=== PATIENT | male | born 1945 | race Caucasian/White ===

== ENCOUNTER 2017-05-06 07:54 | Inpatient (IN) | payer MEDICARE, OTHER ==
[2017-05-06] VITALS (19 sets, daily range): BP systolic 85–155; BP diastolic 56–98; PULSE 68–98; RESP 14–16; TEMP 97.8–99; O2SAT 70–100
[~2017-05-06] VITALS: Ht 182.9 cm; Wt 104.5 kg
[~2017-05-06 07:54] MED LIST: AMLO5 PO; ATOR20TA15 PO; CHOL5000 PO; FURO20TA PO; GABA100C4 PO; GETGO ROLLING W1 MI1; KLOR10TA PO; LIPI40TA PO; LISI-515 PO; METO25TA3 PO; NIAC100T2 PO; PRAD150C PO; THERTAB15 PO; [UNRECOGNIZED DRUG - OTHER]; shower chair
[2017-05-06] MEDS ORDERED: SODIUM CHLORIDE 0.9% FLUSH 10 ML FLUSH IVF PRN (08:15)
[2017-05-06] MEDS ORDERED: methylPREDNISolone SOD SUCC 125 MG/2 ML VIAL IV PUSH ONE (08:15)
[2017-05-06] MEDS: RESP: ALBUTEROL 2.5 MG/IPRATROPIUM 0.5 MG NEB (SCH) INH ×4 (08:15→20:26)
--- NOTE | 2017-05-06 08:15 | PD ---
HPI Chief Complaint: respiratory Time Seen by Provider: 07:59 Travel History International Travel<30 days: No Contact w/Intl Traveler<30days: No Traveled to known affect area: No History of Present Illness HPI 71-year-old male was brought in by EMS this morning for a short breath and chest pain. Patient states that the symptoms started this morning. Patient has history of COPD and atrial fibrillation. Patient states that he has substernal chest pain this morning which lasted a short period of time and resolved completely. Patient denies any chest pain now. Patient has history of CVA with left-sided weakness. Patient denies any fever chills. In reviewing medical records, patient has history COPD, atrial fibrillation, depression, hypertension, status post CVA, GI bleed. PFSH Past Medical History Arthritis: No Asthma: Yes (as a child) Autoimmune Disease: No Anxiety: No Depression: No Heart Rhythm Problems: Yes Cancer: No Cardiovascular Problems: No High Cholesterol: Yes Chemotherapy: No Chest Pain: No Congestive Heart Failure: Yes COPD: No Cerebrovascular Accident: Yes Diabetes: No Endocrine: No GERD: No Genitourinary: No Hiatal Hernia: No Immune Disorder: No Kidney Stones: Yes (Once) Musculoskeletal: Yes (Hx of Bilateral Shoulder Pain) Neurologic: No Psychiatric: No Reproductive: No Respiratory: Yes Migraines: No Radiation Therapy: No Renal Failure: No Seizures: No Sickle Cell Disease: No Sleep Apnea: Yes (Obstructive) Thyroid Disease: No Ulcer: No Past Surgical History Abdominal Surgery: No AICD: No Arteriovenous Shunt: No Cardiac Surgery: No Ear Surgery: No Endocrine Surgery: No Eye Surgery: No Genitourinary Surgery: No Gynecologic Surgery: No Insulin Pump: No Joint Replacement: No Oral Surgery: Yes (Tonsilectomy (18yrs old)) Pacemaker: No Thoracic Surgery: No Social History Tobacco Use: No Substance Use: No Allergies-Medications (Allergen,Severity, Reaction): Coded Allergies: hornet venom (Unverified Allergy, Severe, Swelling, 12/10/16) Reported Meds & Prescriptions Reported Meds & Active Scripts Active Klor-Con 10 (Potassium Chloride) 10 Meq Tab 10 Meq PO DAILY 30 Days Niacin 100 Mg Tab 100 Mg PO HS 30 Days Thera/Beta-Carotene (Multiple Vitamin) 1 Tab Tab 1 Tab PO DAILY 30 Days Metoprolol Tartrate 25 Mg Tab 12.5 Mg PO DAILY 30 Days Lisinopril 20 Mg Tab 20 Mg PO BID 30 Days Gabapentin 100 Mg Cap 100 Mg PO BID 30 Days Furosemide 20 Mg Tab 20 Mg PO DAILY 30 Days Pradaxa (Dabigatran) 150 Mg Cap 150 Mg PO BID 30 Days Vitamin D3 (Cholecalciferol) 5,000 Unit Cap 5,000 Units PO DAILY 30 Days Norvasc (Amlodipine Besylate) 5 Mg Tab 5 Mg PO DAILY 30 Days Atorvastatin (Atorvastatin Calcium) 20 Mg Tab 20 Mg PO HS Pradaxa (Dabigatran) 150 Mg Cap 150 Mg PO BID [shower chair] Ea [transport chair] Ea Walker Rolling/GetGo (Device) 1 Mis Mis 1 Ea .ROUTE DIRECTED Reported Lipitor (Atorvastatin Calcium) 40 Mg Tab 40 Mg PO HS Review of Systems General / Constitutional: No: Fever Eyes: No: Visual changes HENT: No: Headaches Cardiovascular: Positive: Chest Pain or Discomfort Respiratory: Positive: Shortness of Breath Gastrointestinal: No: Abdominal Pain Genitourinary: No: Dysuria Musculoskeletal: No: Pain Skin: No Rash Neurologic: No: Weakness Psychiatric: No: Depression Endocrine: No: Polydipsia Hematologic/Lymphatic: No: Easy Bruising Physical Exam Narrative GENERAL: Well-nourished, well-developed patient. SKIN: Focused skin assessment warm/dry. HEAD: Normocephalic. EYES: No scleral icterus. No injection or drainage. NECK: Supple, trachea midline. No JVD or lymphadenopathy. CARDIOVASCULAR: Irregular irregular rate and rhythm without murmurs, gallops, or rubs. RESPIRATORY: Patient has rhonchi bilaterally. Patient has mild to moderate expiratory wheezes bilaterally. GASTROINTESTINAL: Abdomen soft, non-tender, nondistended. MUSCULOSKELETAL: No cyanosis, or edema. BACK: Nontender without obvious deformity. No CVA tenderness. Neurologic exam: Patient's awake and alert. Left sided weakness from previous CVA. Data Data Last Documented VS Vital Signs Date Time Temp Pulse Resp B/P (MAP) Pulse Ox O2 Delivery O2 Flow Rate FiO2 05/06/17 11:00 68 16 121/70 (87) 100 Ventilator 100 05/06/17 08:11 97.8 4.00 Orders Orders Electrocardiogram (05/06/17 08:09) Complete Blood Count With Diff (05/06/17 08:09) Comprehensive Metabolic Panel (05/06/17 08:09) Creatine Kinase (Cpk) (05/06/17 08:09) Troponin I (05/06/17 08:09) B-Type Natriuretic Peptide (05/06/17 08:09) Prothrombin Time / Inr (Pt) (05/06/17 08:09) Act Partial Throm Time (Ptt) (05/06/17 08:09) Arterial Blood Gas (Abg) (05/06/17 08:09) Blood Culture (05/06/17 08:09) Urinalysis - C+S If Indicated (05/06/17 08:09) Thyroid Stimulating Hormone (05/06/17 08:09) Influenzae A/B Antigen (05/06/17 08:09) Chest, Single Ap (05/06/17 08:09) Iv Access Insert/Monitor (05/06/17 08:09) Ecg Monitoring (05/06/17 08:09) Oxygen Administration (05/06/17 08:09) Oximetry (05/06/17 08:09) Sodium Chloride 0.9% Flush (Ns Flush) (05/06/17 08:15) Methylprednisolone So Succ Inj (Solumedr (05/06/17 08:15) Albuterol-Ipratropium Neb (Duoneb Neb) (05/06/17 08:15) Lactic Acid (05/06/17 08:18) Resp Bipap / Cpap Non Invas Vt (05/06/17 08:19) Cefepime Inj (Maxipime Inj) (05/06/17 09:00) Azithromycin Inj (Zithromax Inj) (05/06/17 09:00) Etomidate Inj (Amidate Inj) (05/06/17 09:15) Succinylcholine Inj (Quelicin Inj) (05/06/17 09:15) Fentanyl Drip (Fentanyl Drip) (05/06/17 09:15) Propofol 1000 Mg/100 Ml Inj (Diprivan 10 (05/06/17 09:15) Urinary Catheter Insert/Apply (05/06/17 09:11) Sagar-Gastric Tube Insert/Mon (05/06/17 09:11) Restraints Non-Violent ANGELICA.Q3H (05/06/17 09:11) Chest, Single Ap (05/06/17 09:21) Etomidate Inj (Amidate Inj) (05/06/17 09:29) Arterial Blood Gas (Abg) (05/06/17 ) Fentanyl Drip (Fentanyl Drip) (05/06/17 10:19) Sodium Chlor 0.9% 1000 Ml Inj (Ns 1000 M (05/06/17 10:45) Admit Order (Ed Use Only) (05/06/17 11:02) Vital Signs (Adult) Q1H (05/06/17 11:04) Diet Npo (05/06/17 Lunch) Activity Bed Rest (05/06/17 11:04) Notify Dr: Other (05/06/17 11:04) Labs Laboratory Tests Test 05/06/17 08:09 05/06/17 08:15 05/06/17 09:30 05/06/17 09:45 Blood Gas Puncture Site RT RADIAL RT RADIAL Blood Gas Patient Temperature 98.6 98.6 Blood Gas HCO3 42 mmol/L 36 mmol/L Blood Gas Base Excess 15.0 mmol/L 11.4 mmol/L Blood Gas Oxygen Saturation 93 % 96 % Arterial Blood pH 7.30 7.43 Arterial Blood Partial Pressure CO2 88 mmHg 55 mmHg Arterial Blood Partial Pressure O2 78 mmHG 91 mmHG Arterial Blood Oxygen Content 18.0 Vol % 19.4 Vol % Arterial Blood Carboxyhemoglobin 1.6 % 1.5 % Arterial Blood Methemoglobin 0.6 % 0.4 % Blood Gas Hemoglobin 13.7 G/DL 14.3 G/DL Oxygen Delivery Device BiPAP VENTILATOR Blood Gas Inspired Oxygen 45 % White Blood Count 15.5 TH/MM3 Red Blood Count 4.38 MIL/MM3 Hemoglobin 13.7 GM/DL Hematocrit 42.2 % Mean Corpuscular Volume 96.4 FL Mean Corpuscular Hemoglobin 31.2 PG Mean Corpuscular Hemoglobin Concent 32.4 % Red Cell Distribution Width 14.6 % Platelet Count 330 TH/MM3 Mean Platelet Volume 8.6 FL Neutrophils (%) (Auto) 88.2 % Lymphocytes (%) (Auto) 3.5 % Monocytes (%) (Auto) 7.9 % Eosinophils (%) (Auto) 0.1 % Basophils (%) (Auto) 0.3 % Neutrophils # (Auto) 13.6 TH/MM3 Lymphocytes # (Auto) 0.5 TH/MM3 Monocytes # (Auto) 1.2 TH/MM3 Eosinophils # (Auto) 0.0 TH/MM3 Basophils # (Auto) 0.0 TH/MM3 CBC Comment DIFF FINAL Differential Comment Prothrombin Time 12.5 SEC Prothromb Time International Ratio 1.2 RATIO Activated Partial Thromboplast Time 30.4 SEC Blood Urea Nitrogen 28 MG/DL Creatinine 0.76 MG/DL Random Glucose 123 MG/DL Total Protein 7.2 GM/DL Albumin 3.0 GM/DL Calcium Level 9.1 MG/DL Alkaline Phosphatase 143 U/L Aspartate Amino Transf (AST/SGOT) 14 U/L Alanine Aminotransferase (ALT/SGPT) 14 U/L Total Bilirubin 0.3 MG/DL Sodium Level 143 MEQ/L Potassium Level 4.3 MEQ/L Chloride Level 98 MEQ/L Carbon Dioxide Level 40.2 MEQ/L Anion Gap 5 MEQ/L Estimat Glomerular Filtration Rate 101 ML/MIN Lactic Acid Level 1.1 mmol/L Total Creatine Kinase 20 U/L Troponin I 0.03 NG/ML B-Type Natriuretic Peptide 326 PG/ML Thyroid Stimulating Hormone 3rd Gen 0.182 uIU/ML Urine Color YELLOW Urine Turbidity CLEAR Urine pH 5.0 Urine Specific [place] 1.015 Urine Protein NEG mg/dL Urine Glucose (UA) NEG mg/dL Urine Ketones NEG mg/dL Urine Occult Blood NEG Urine Nitrite NEG Urine Bilirubin NEG Urine Urobilinogen LESS THAN 2.0 MG/DL Urine Leukocyte Esterase NEG Urine RBC 1 /hpf Urine WBC LESS THAN 1 /hpf Urine Bacteria RARE /hpf Urine Hyaline Casts 25 /lpf Urine Mucus FEW /lpf Microscopic Urinalysis Comment CULT NOT INDICATED Blood Gas Ventilator Setting MDM Medical Decision Making Medical Screen Exam Complete: Yes Emergency Medical Condition: Yes Differential Diagnosis Differential diagnosis including acute exacerbation COPD, bronchitis, pneumonia , PE, pneumothorax, angina, TX, CHF. Narrative Course 71-year-old male with chest pain and shortness of breath. History of COPD. O2 saturation at room air in the 70s and 80s. Patient was given O2 4 L nasal cannula. Albuterol with Atrovent unit dose treatment 2. Solu-Medrol 125 mg IV. Patient had a trial of BiPAP without success. Patient was intubated. Cefepime 1 g IV. Zithromax 500 mg IV. Propofol and fentanyl as needed for sedation. Critical Care Narrative Aggregate critical care time was 60 minutes. Time to perform other separately billable procedures was not included in the critical care time. My time did not include minutes spent treating any other patients simultaneously or on activities that did not directly contribute to the patient's treatment. The services I provided to this patient were to treat and/or prevent clinically significant deterioration that could result in: I provided critical care services requiring my management, as noted below: Chart data review, documentation time, medication orders and management, vital sign assessments/reviewing monitor data, ordering and reviewing lab tests, ordering and interpreting/reviewing x-rays and diagnostic studies, care of the patient and discussion of the patient with the admitting physicians. Procedures Procedure Narrative After the risks and benefits were discussed the following procedure was performed: INTUBATION: The patient was put in optimal position for the procedure. Rapid sequence intubation was initiated by me using 20 milligrams of etomidate IV and 100 milligrams of succinylcholine IV. The patient was intubated with a 7.5 cuffed endotracheal tube. Tube placement was confirmed by visualization of the tube and balloon passing through the cords, capnometry and subsequent chest x- ray. Breath sounds were equal and well aerated bilaterally postintubation. No breath sounds over stomach. Patient tolerated procedure well. Diagnosis Primary Impression: Pneumonia Qualified Codes: J18.1 - Lobar pneumonia, unspecified organism Additional Impressions: COPD with acute exacerbation Respiratory failure Qualified Codes: J96.01 - Acute respiratory failure with hypoxia; J96.02 - Acute respiratory failure with hypercapnia Admitting Information Admitting Physician Requests: Jeramy Bowens MD May 06, 2017 08:15
[2017-05-06 08:36] LABS: AUTOMATED NEUTROPHIL # 13.6 TH/MM3 (1.8-7.7); BASOPHIL % 0.3 % (0.0-2.0); EOSINOPHIL % 0.1 % (0.0-4.0); HEMATOCRIT 42.2 % (39.0-51.0); HEMOGLOBIN 13.7 GM/DL (13.0-17.0); LYMPH % 3.5 % (9.0-44.0); LYMPHOCYTE # 0.5 TH/MM3 (1.0-4.8); MEAN CELL VOLUME 96.4 FL (80.0-100.0); MEAN CORPUSCULAR HEMOGLOBIN 31.2 PG (27.0-34.0); MEAN CORPUSCULAR HGB CONC 32.4 % (32.0-36.0); MEAN PLATELET VOLUME 8.6 FL (7.0-11.0); MONO % 7.9 % (0.0-8.0); MONOCYTE # 1.2 TH/MM3 (0-0.9); NEUT % 88.2 % (16.0-70.0); PLATELET COUNT 330 TH/MM3 (150-450); RED BLOOD COUNT 4.38 MIL/MM3 (4.50-5.90); RED CELL DISTRIBUTION WIDTH 14.6 % (11.6-17.2); WHITE BLOOD COUNT 15.5 TH/MM3 (4.0-11.0)
[2017-05-06 08:45] LABS: INTERNATIONAL NORMALIZED RATIO 1.2 RATIO; PROTHROMBIN TIME - PATIENT 12.5 SEC (9.8-11.6)
[2017-05-06 08:54] LABS: ALT (GPT) 14 U/L (12-78); AST (GOT) 14 U/L (15-37); BICARBONATE 40.2 MEQ/L (21.0-32.0); BLOOD UREA NITROGEN 28 MG/DL (7-18); CALCIUM 9.1 MG/DL (8.5-10.1); CHLORIDE 98 MEQ/L (98-107); CREATININE 0.76 MG/DL (0.60-1.30); GLOMERULAR FILTRATION RATE 101 ML/MIN (>89); GLUCOSE,RANDOM 123 MG/DL (74-106); SODIUM (NA) 143 MEQ/L (136-145)
[2017-05-06] MEDS ORDERED: CEFEPIME INJ 1,000 MG in SODIUM CHLORIDE 0.9% INJ 100 ML IV ONE (09:00)
[2017-05-06] MEDS ORDERED: AZITHROMYCIN INJ 500 MG in SODIUM CHLOR 0.9% 250 ML INJ 250 ML IV ONE (09:00)
--- NOTE | 2017-05-06 09:01 | RADRPT ---
EXAM DATE/TIME: 05/06/2017 08:27 [facility] COMPARISON: CHEST SINGLE AP, July 22, 2016, 17:34. INDICATIONS : Short of breath, with wheezing. MEDICAL HISTORY : Chronic obstructive pulmonary disease. SURGICAL HISTORY : None. ENCOUNTER: Initial ACUITY: 1 day PAIN SCORE: 0/10 LOCATION: Bilateral chest FINDINGS: A single AP erect portable view of the chest was obtained. The study is rotated to the left and is Mi dinspiratory. Discoid atelectasis is now noted in the right midlung. The heart size is at the upper l imits of normal. There is mild patchy opacity at the lung bases with no definite effusion. The left c ostophrenic angle is not well-visualized. The bony structures are intact. Atherosclerotic changes are present in the aorta. There are multiple overlying electrocardiogram leads. CONCLUSION: 1. Rotated Midinspiratory examination which limits the sensitivity. 2. Discoid atelectasis in the right midlung and patchy opacity at the lung bases which may represent atelectasis. Calderon Moncada MD on May 06, 2017 at 8:56 Board Certified Radiologist. This report was verified electronically.
[2017-05-06 09:04] LABS: ALKALINE PHOSPHATASE 143 U/L (45-117); TOTAL BILIRUBIN ADULT 0.3 MG/DL (0.2-1.0); TOTAL PROTEIN 7.2 GM/DL (6.4-8.2); TROPONIN I 0.03 NG/ML (0.02-0.05)
[2017-05-06] MEDS ORDERED: ETOMIDATE 20 MG/10 ML VIAL IV PUSH ONE (09:15)
[2017-05-06] MEDS ORDERED: SUCCINYLCHOLINE CHLORIDE 100 MG/5 ML SYRINGE IV PUSH ONE (09:15)
[2017-05-06] MEDS: PROPOFOL 1000 MG/100 ML INJ 100 ML IV PRN ×2 (09:16→21:45)
[2017-05-06] MEDS ORDERED: ETOMIDATE 40 MG/20 ML VIAL ONE (09:29)
[2017-05-06 09:49] LABS: BACTERIA, URINE RARE /hpf; BILIRUBIN, URINE NEG (NEG); BLOOD, URINE NEG (NEG); GLUCOSE,URINE NEG (NEG); HYALINE CAST, URINE 25 /lpf (RARE); KETONE, URINE NEG (NEG); MUCUS URINE FEW /lpf (OCC); NITRITE,URINE NEG (NEG); URINE COLOR YELLOW (YELLW/STRAW); URINE LEUKOCYTE ESTERASE NEG (NEG)
[2017-05-06] MEDS ORDERED: fentaNYL DRIP 250 ML ONE (10:19)
[2017-05-06] MEDS: fentaNYL DRIP 250 ML IV PRN ×2 (10:29→21:45)
--- NOTE | 2017-05-06 10:38 | RADRPT ---
EXAM DATE/TIME: 05/06/2017 09:30 [facility] COMPARISON: CHEST SINGLE AP, May 06, 2017, 8:27. INDICATIONS : Status post intubation. Respiratory failure.. MEDICAL HISTORY : Cardiovascular disease. Congestive heart failure. Hypertension. SURGICAL HISTORY : None. ENCOUNTER: Initial ACUITY: 1 day PAIN SCORE: Non-responsive. LOCATION: Bilateral chest FINDINGS: 2 AP semierect portable views of the chest were obtained. Both are moderately rotated to the left. Th is demonstrates interval intubation with the endotracheal tube tip approximately 4-5 cm above the car aureliano. There has been placement of a nasogastric tube with the tip in the stomach. Abnormal opacity is present in both lung bases and there is discoid atelectasis in right perihilar region. The heart size appears at the upper limits of normal. The left costophrenic angle now appears blunted which could i ndicate a small effusion. Overlying electrocardiogram leads and oxygen tubing are present. The bony t horax appears intact. CONCLUSION: 1. Interval intubation and placement of nasogastric tube. 2. Rotated exam demonstrating apparent locking of left costophrenic angle which could indicate an eff usion. 3. Bibasilar opacity remains as well as discoid atelectasis in the right perihilar region. Calderon Moncada MD on May 06, 2017 at 10:32 Board Certified Radiologist. This report was verified electronically.
[2017-05-06] MEDS ORDERED: VANCOMYCIN INJ 1,000 MG in SODIUM CHLOR 0.9% 250 ML INJ 250 ML IV ONE (10:45)
--- NOTE | 2017-05-06 14:01 | EKG ---
Date Performed: 05/06/2017 Time Performed: 10:54:56 PTAGE: 71 years EKG: Baseline artifact present ATRIAL FIBRILLATION MARKED RIGHT AXIS DEVIATION RIGHT BUNDLE BRAN CH BLOCK ABNORMAL ECG No significant change from prior electrocardiogram. DOCTOR: Yosvany Garcia Interpretating Date/Time 05/06/2017 14:00:14
--- NOTE | 2017-05-06 14:08 | EKG ---
Date Performed: 05/06/2017 Time Performed: 08:02:47 PTAGE: 71 years EKG: Baseline artifact present ATRIAL FIBRILLATION WITH RAPID VENTRICULAR RESPONSE RIGHT BUNDLE BRANCH BLOCK LEFT POSTERIOR FASCICULAR BLOCK ABNORMAL ECG There is significant artifact on both EKGs but the only definite change I see is an increase in rate. DOCTOR: Yosvany Garcia Interpretating Date/Time 05/06/2017 14:06:56
--- NOTE | 2017-05-06 14:11 | HHI.HP ---
HPI Service Critical Care Medicine Primary Care Physician Unknown Admission Diagnosis pneumonia. Acute exacerbation of COPD. Respiratory failure. Diagnosis: Chief Complaint: shortness of breath Travel History International Travel<30 Days: No Contact w/Intl Traveler <30 Da: No Traveled to Known Affected Are: No History of Present Illness This is a 71-year-old patient with a history of COPD and atrial fibrillation who presented to the emergency department with a report of chest pain, but resolved on the way to the hospital. He has a history of CVA with residual left -sided weakness. In the emergency department he was significant short breath and was placed on BiPAP for respiratory distress. ABG despite BiPAP demonstrates a PCO2 of 88 and the patient continued to decline despite our attempts and he was intubated by the emergency department physician. When I evaluated the patient, the patient is artery recently intubated and sedated. No additional information is available from the patient. Chest x-ray demonstrates questionable right lung atelectasis versus possible early consolidation, possible viral/atypical pneumonia. Review of Systems ROS Limitations: Clinical Condition, Intubated, Altered Mental Status, Unresponsive Past Family Social History Allergies: Coded Allergies: hornet venom (Unverified Allergy, Severe, Swelling, 12/10/16) Past Medical History Unobtainable from the patient. Per chart review: Childhood asthma Congestive heart failure, unknown type High Cholesterol CVA Kidney stones Bilateral shoulder pain COPD Obstructive sleep apnea Past Surgical History Unobtainable from the patient. Per chart review: Tonsillectomy at age 18 Reported Medications Klor-Con 10 (Potassium Chloride) 10 Meq Tab 10 Meq PO DAILY 30 Days Niacin 100 Mg Tab 100 Mg PO HS 30 Days Thera/Beta-Carotene (Multiple Vitamin) 1 Tab Tab 1 Tab PO DAILY 30 Days Metoprolol Tartrate 25 Mg Tab 12.5 Mg PO DAILY 30 Days Lisinopril 20 Mg Tab 20 Mg PO BID 30 Days Gabapentin 100 Mg Cap 100 Mg PO BID 30 Days Furosemide 20 Mg Tab 20 Mg PO DAILY 30 Days Pradaxa (Dabigatran) 150 Mg Cap 150 Mg PO BID 30 Days Vitamin D3 (Cholecalciferol) 5,000 Unit Cap 5,000 Units PO DAILY 30 Days Norvasc (Amlodipine Besylate) 5 Mg Tab 5 Mg PO DAILY 30 Days Atorvastatin (Atorvastatin Calcium) 20 Mg Tab 20 Mg PO HS Pradaxa (Dabigatran) 150 Mg Cap 150 Mg PO BID [shower chair] Ea [transport chair] Ea Walker Rolling/GetGo (Device) 1 Mis Mis 1 Ea .ROUTE DIRECTED Lipitor (Atorvastatin Calcium) 40 Mg Tab 40 Mg PO HS Active Ordered Medications See MAR Family History Unknown and unobtainable secondary the clinical condition of the patient Social History Unknown and unobtainable secondary clinical condition of the patient Physical Exam Vital Signs Vital Signs Date Time Temp Pulse Resp B/P (MAP) Pulse Ox O2 Delivery O2 Flow Rate FiO2 05/06/17 12:30 100 100 05/06/17 12:21 05/06/17 12:00 75 16 95/56 (69) 100 Ventilator 100 05/06/17 11:30 78 16 108/65 (79) 100 Ventilator 100 05/06/17 11:00 68 16 121/70 (87) 100 Ventilator 100 05/06/17 10:30 70 16 85/60 (68) 100 Ventilator 100 05/06/17 10:00 86 16 96/67 (77) 100 Ventilator 100 05/06/17 09:30 98 14 155/98 (117) 99 Ventilator 100 05/06/17 09:20 98 100 05/06/17 09:17 100 05/06/17 08:30 95 BiPAP 45 05/06/17 08:30 95 BiPAP 45 05/06/17 08:25 92 45 05/06/17 08:11 97.8 97 16 131/79 (96) 91 Nasal Cannula 4.00 05/06/17 08:11 102 16 93 Nasal Cannula 4.00 05/06/17 08:11 91 Nasal Cannula 4.00 05/06/17 08:11 92 Nasal Cannula 4.00 05/06/17 07:58 97.8 96 16 131/79 (96) 93 Physical Exam GENERAL: Elderly male, lying in bed, recently intubated, sedated, critically ill HEENT: Normocephalic. Atraumatic. Pupils equal, round, reactive, conjugate. Mucous membranes are dry NECK: Trachea is midline. There is no JVD. CHEST: PRVC, FiO2 80%, SPO2 93%. Equal chest rise. Decreased breath sounds, elongated expiratory phase, moderate amount of expiratory wheezing CARDIOVASCULAR: Normal rate, irregularly irregular rhythm. A. fib by telemetry ABDOMEN: Soft, nontender, nondistended. No guarding. MUSCULOSKELETAL: Pulses 2+. No peripheral edema. NEUROLOGICAL: RASS -3. Recently intubated and sedated. Laboratory Laboratory Tests Test 05/06/17 08:09 05/06/17 08:15 05/06/17 09:30 05/06/17 09:45 Blood Gas Puncture Site RT RADIAL RT RADIAL Blood Gas Patient Temperature 98.6 98.6 Blood Gas HCO3 42 36 Blood Gas Base Excess 15.0 11.4 Blood Gas Oxygen Saturation 93 96 Arterial Blood pH 7.30 7.43 Arterial Blood Partial Pressure CO2 88 55 Arterial Blood Partial Pressure O2 78 91 Arterial Blood Oxygen Content 18.0 19.4 Arterial Blood Carboxyhemoglobin 1.6 1.5 Arterial Blood Methemoglobin 0.6 0.4 Blood Gas Hemoglobin 13.7 14.3 Oxygen Delivery Device BiPAP VENTILATOR Blood Gas Inspired Oxygen 45 White Blood Count 15.5 Red Blood Count 4.38 Hemoglobin 13.7 Hematocrit 42.2 Mean Corpuscular Volume 96.4 Mean Corpuscular Hemoglobin 31.2 Mean Corpuscular Hemoglobin Concent 32.4 Red Cell Distribution Width 14.6 Platelet Count 330 Mean Platelet Volume 8.6 Neutrophils (%) (Auto) 88.2 Lymphocytes (%) (Auto) 3.5 Monocytes (%) (Auto) 7.9 Eosinophils (%) (Auto) 0.1 Basophils (%) (Auto) 0.3 Neutrophils # (Auto) 13.6 Lymphocytes # (Auto) 0.5 Monocytes # (Auto) 1.2 Eosinophils # (Auto) 0.0 Basophils # (Auto) 0.0 CBC Comment DIFF FINAL Differential Comment Prothrombin Time 12.5 Prothromb Time International Ratio 1.2 Activated Partial Thromboplast Time 30.4 Blood Urea Nitrogen 28 Creatinine 0.76 Random Glucose 123 Total Protein 7.2 Albumin 3.0 Calcium Level 9.1 Alkaline Phosphatase 143 Aspartate Amino Transf (AST/SGOT) 14 Alanine Aminotransferase (ALT/SGPT) 14 Total Bilirubin 0.3 Sodium Level 143 Potassium Level 4.3 Chloride Level 98 Carbon Dioxide Level 40.2 Anion Gap 5 Estimat Glomerular Filtration Rate 101 Lactic Acid Level 1.1 Total Creatine Kinase 20 Troponin I 0.03 B-Type Natriuretic Peptide 326 Thyroid Stimulating Hormone 3rd Gen 0.182 Urine Color YELLOW Urine Turbidity CLEAR Urine pH 5.0 Urine Specific [place] 1.015 Urine Protein NEG Urine Glucose (UA) NEG Urine Ketones NEG Urine Occult Blood NEG Urine Nitrite NEG Urine Bilirubin NEG Urine Urobilinogen LESS THAN 2.0 Urine Leukocyte Esterase NEG Urine RBC 1 Urine WBC LESS THAN 1 Urine Bacteria RARE Urine Hyaline Casts 25 Urine Mucus FEW Microscopic Urinalysis Comment CULT NOT INDICATED Blood Gas Ventilator Setting Date/Time Source Procedure Growth Status 05/06/17 08:20 Blood Peripheral Aerobic Blood Culture Pending Received 05/06/17 08:20 Blood Peripheral Anaerobic Blood Culture Pending Received 05/06/17 08:15 Nasal Washing Influenza Types A,B Antigen (CHAPARRO) - Final NEGATIVE FOR FLU A AND B ANTIGEN.... Complete Result Diagram: 05/06/17 0815 05/06/17 0815 Imaging Last Impressions Chest X-Ray 05/06/17920 Signed Impressions: Service Date/Time: Saturday, May 06, 2017 09:30 - CONCLUSION: 1. Interval intubation and placement of nasogastric tube. 2. Rotated exam demonstrating apparent locking of left costophrenic angle which could indicate an effusion. 3. Bibasilar opacity remains as well as discoid atelectasis in the right perihilar region. Calderon Moncada MD Septic Shock Reassessment Septic shock perfusion: reassessment completed Caprini VTE Risk Assessment Caprini VTE Risk Assessment: Mod/High Risk (score >= 2) Caprini Risk Assessment Model Point Value = 1 Point Value = 2 Point Value = 3 Point Value = 5 Age 41-60 Minor surgery BMI > 25 kg/m2 Swollen legs Varicose veins or History of unexplained or recurrent spontaneous Oral contraceptives or hormone replacement Sepsis (< 1 month) Serious lung disease, including pneumonia (< 1 month) Abnormal pulmonary function Acute myocardial infarction Congestive heart failure (< 1 month) History of inflammatory bowel disease Medical patient at bed rest Age 61-74 Arthroscopic surgery Major open surgery (> 45 min) Laparoscopic surgery (> 45 min) Malignancy Confined to bed (> 72 hours) Immobilizing plaster cast Central venous access Age >= 75 History of VTE Family history of VTE Factor V Leiden Prothrombin [id number] Lupus anticoagulant Anticardiolipin antibodies Elevated serum homocysteine Heparin-induced thrombocytopenia Other congenital or acquired thrombophilia Stroke (< 1 month) Elective arthroplasty Hip, pelvis, or leg fracture Acute spinal cord injury (< 1 month) Prophylaxis Regimen Total Risk Factor Score Risk Level Prophylaxis Regimen 0-1 Low Early ambulation 2 Moderate Order ONE of the following: *Sequential Compression Device (SCD) *Heparin 5000 units SQ BID 3-4 Higher Order ONE of the following medications: *Heparin 5000 units SQ TID *Enoxaparin/Lovenox 40 mg SQ daily (WT < 150 kg, CrCl > 30 mL/min) *Enoxaparin/Lovenox 30 mg SQ daily (WT < 150 kg, CrCl > 10-29 mL/min) *Enoxaparin/Lovenox 30 mg SQ BID (WT < 150 kg, CrCl > 30 mL/min) AND/OR *Sequential Compression Device (SCD) 5 or more Highest Order ONE of the following medications: *Heparin 5000 units SQ TID (Preferred with Epidurals) *Enoxaparin/Lovenox 40 mg SQ daily (WT < 150 kg, CrCl > 30 mL/min) *Enoxaparin/Lovenox 30 mg SQ daily (WT < 150 kg, CrCl > 10-29 mL/min) *Enoxaparin/Lovenox 30 mg SQ BID (WT < 150 kg, CrCl > 30 mL/min) AND *Sequential Compression Device (SCD) Assessment and Plan Assessment and Plan Assessment: 71-year-old male with COPD who presents with worsening shortness of breath leading to respiratory failure and requiring intubation mechanical ventilation. He has worsening acute hypercarbic and hypoxic respiratory failure. Remains critically ill. Admit to ICU. Agree with covering with broad -spectrum empiric antibiotics to cover healthcare Association. Acute Severe COPD Exacerbation Acute hypoxic and hypercarbic respiratory failure Healthcare Associated Pneumonia - vent bundle - hob elevated - nebs - mivf. - steroids - AM abg - no SBT today - fentanyl, propofol for sedation - vanc, cefepime, flagyl, azithro - f/u cultures - SCDs, Lovenox - pepcid - admit to ICU Critical care time: 40 minutes, exclusive of separately billable procedures. Linden Neri MD May 06, 2017 14:11
[2017-05-06] MEDS ORDERED: POTASSIUM CHLOR 40 MEQ PREMIX 100 ML IV PRN ×2 (14:15)
[2017-05-06] MEDS ORDERED: POTASSIUM PHOSPHATE MONOBASIC 500 MG TAB PO/TUBE PRN (14:15)
[2017-05-06] MEDS ORDERED: MAGNESIUM SULFATE INJ 4 GM in SODIUM CHLORIDE 0.9% INJ 92 ML IV PRN (14:15)
[2017-05-06] MEDS ORDERED: SODIUM PHOSPHATE INJ 30 MMOL in SODIUM CHLOR 0.9% 250 ML INJ 240 ML IV PRN (14:15)
[2017-05-06] MEDS ORDERED: Vancomycin Consult Pharmacy 1 EA OTHER SCH (14:15)
[2017-05-06] MEDS ORDERED: MAGNESIUM SULFATE INJ 2 GM in SODIUM CHLORIDE 0.9% INJ 96 ML IV PRN (14:15)
[2017-05-06] MEDS ORDERED: POTASSIUM PHOSPHATE INJ 30 MMOL in SODIUM CHLOR 0.9% 250 ML INJ 250 ML IV PRN (14:15)
[2017-05-06] MEDS ORDERED: MAGNESIUM OXIDE 400 MG TAB PO PRN (14:15)
[2017-05-06] MEDS ORDERED: POTASSIUM CHLOR 20 MEQ PREMIX 100 ML IV PRN ×2 (14:15)
[2017-05-06] MEDS ORDERED: POTASSIUM CHLORIDE 25 MEQ EFFERVESCENT TAB PO PRN (14:15)
[2017-05-06] MEDS: metroNIDAZOLE 500 MG INJ 100 ML IV SCH ×2 (16:30→22:04)
[2017-05-06] MEDS: VANCOMYCIN INJ 1,500 MG in SODIUM CHLORID 0.9% 500 ML INJ 500 ML IV SCH (18:14)
[2017-05-06] MEDS: SODIUM CHLOR 0.9% 1000 ML INJ 1,000 ML IV SCH ×2 (18:18→21:13)
[2017-05-06] MEDS: CEFEPIME INJ 1,000 MG in SODIUM CHLORIDE 0.9% INJ 100 ML IV SCH (21:13)
[2017-05-06] MEDS: CHLORHEXIDINE 0.12% (ORAL KIT) 15 ML CUP MT SCH (21:45)
[2017-05-06] MEDS: methylPREDNISolone SOD SUCC 125 MG/2 ML VIAL IV PUSH SCH (21:46)
[2017-05-07] VITALS (19 sets, daily range): BP systolic 104–134; BP diastolic 67–87; PULSE 75–100; RESP 15–16; TEMP 98–99.3; O2SAT 93–98
[2017-05-07] MEDS: RESP: ALBUTEROL 2.5 MG/IPRATROPIUM 0.5 MG NEB (SCH) INH ×6 (00:11→21:50)
[2017-05-07] MEDS: metroNIDAZOLE 500 MG INJ 100 ML IV SCH ×4 (03:33→21:06)
[2017-05-07] MEDS: CEFEPIME INJ 1,000 MG in SODIUM CHLORIDE 0.9% INJ 100 ML IV SCH ×3 (04:23→18:44)
[2017-05-07] MEDS: VANCOMYCIN INJ 1,500 MG in SODIUM CHLORID 0.9% 500 ML INJ 500 ML IV SCH ×2 (05:11→18:45)
[2017-05-07 05:26] LABS: HEMATOCRIT 41.9 % (39.0-51.0); HEMOGLOBIN 13.5 GM/DL (13.0-17.0); MEAN CELL VOLUME 97.2 FL (80.0-100.0); MEAN CORPUSCULAR HEMOGLOBIN 31.4 PG (27.0-34.0); MEAN CORPUSCULAR HGB CONC 32.3 % (32.0-36.0); MEAN PLATELET VOLUME 8.8 FL (7.0-11.0); PLATELET COUNT 280 TH/MM3 (150-450); RED BLOOD COUNT 4.31 MIL/MM3 (4.50-5.90); RED CELL DISTRIBUTION WIDTH 14.2 % (11.6-17.2); WHITE BLOOD COUNT 12.7 TH/MM3 (4.0-11.0)
[2017-05-07 05:45] LABS: BICARBONATE 31.3 MEQ/L (21.0-32.0); CALCIUM 8.8 MG/DL (8.5-10.1); CREATININE 0.79 MG/DL (0.60-1.30)
[2017-05-07] MEDS: fentaNYL DRIP 250 ML IV PRN ×2 (06:41→18:44)
[2017-05-07] MEDS: PROPOFOL 1000 MG/100 ML INJ 100 ML IV PRN ×3 (06:41→18:44)
[2017-05-07] MEDS: SODIUM CHLOR 0.9% 1000 ML INJ 1,000 ML IV SCH ×2 (06:48→18:45)
[2017-05-07] MEDS: methylPREDNISolone SOD SUCC 125 MG/2 ML VIAL IV PUSH SCH ×2 (08:23→21:06)
[2017-05-07] MEDS: AZITHROMYCIN INJ 500 MG in SODIUM CHLOR 0.9% 250 ML INJ 250 ML IV SCH (08:24)
[2017-05-07] MEDS: CHLORHEXIDINE 0.12% (ORAL KIT) 15 ML CUP MT SCH ×2 (08:24→20:00)
--- NOTE | 2017-05-07 18:59 | HHI.CCPN ---
Subjective Remarks/Hospital Course Hospital Course: This is a 71-year-old patient with a history of COPD and atrial fibrillation who presented to the emergency department with a report of chest pain, but resolved on the way to the hospital. He has a history of CVA with residual left -sided weakness. In the emergency department he was significant short breath and was placed on BiPAP for respiratory distress. ABG despite BiPAP demonstrates a PCO2 of 88 and the patient continued to decline despite our attempts and he was intubated by the emergency department physician. When I evaluated the patient, the patient is artery recently intubated and sedated. No additional information is available from the patient. Chest x-ray demonstrates questionable right lung atelectasis versus possible early consolidation, possible viral/atypical pneumonia. Subjective: 05/07: no improvements. remains on vent. discussed with at length: apparently he has had significant functional decline since stroke in 12/2016, and has had multiple repeat hospitalizations, including SNF, LTAC, rehab level care, and has continued to decline. this likely represents a slow terminal decline in function. expressed my concern that he may not get back to functional status. goals remain aggressive for now. sputum growing staph. Objective Vital Signs Date Time Temp Pulse Resp B/P (MAP) Pulse Ox O2 Delivery O2 Flow Rate FiO2 05/07/17 16:48 98 50 05/07/17 10:00 95 05/07/17 08:00 98.1 15 134/87 (103) 05/06/17 12:00 Ventilator 05/06/17 08:11 4.00 Intake and Output 05/07/17 05/07/17 05/08/17 08:00 16:00 00:00 Intake Total 1550 ml Output Total 250 ml Balance 1300 ml Result Diagram: 05/07/17 0505 05/07/17 0505 Other Results Microbiology Date/Time Source Procedure Growth Status 05/06/17 08:15 Nasal Washing Influenza Types A,B Antigen (CHAPARRO) - Final NEGATIVE FOR FLU A AND B ANTIGEN.... Complete 05/07/17 12:28 Urine Catheterized Urine Legionella Antigen - Final PRESUMPTIVE NEGATIVE FOR LEGIONELLA P... Complete 05/07/17 12:28 Urine Catheterized Urine Streptococcus pneumoniae Antigen (M - Final PRESUMPTIVE NEGATIVE FOR STREPTOCOCCU... Complete Laboratory Tests Test 05/07/17 12:47 Blood Gas Puncture Site LT RADIAL Blood Gas Patient Temperature 98.6 Blood Gas HCO3 30 mmol/L (22-26) Blood Gas Base Excess 5.1 mmol/L (-2-2) Blood Gas Oxygen Saturation 91 % (90-100) Arterial Blood pH 7.37 (7.380-7.420) Arterial Blood Partial Pressure CO2 54 mmHg (38-42) Arterial Blood Partial Pressure O2 70 mmHg (61-120) Arterial Blood Oxygen Content 16.3 Vol % (12.0-20.0) Arterial Blood Carboxyhemoglobin 0.7 % (0-4) Arterial Blood Methemoglobin 1.2 % (0-2) Blood Gas Hemoglobin 12.7 G/DL (12.0-16.0) Oxygen Delivery Device VENTILATOR Blood Gas Ventilator Setting 500/AC15/PEEP5 Blood Gas Inspired Oxygen 50 % Imaging Last Impressions Chest X-Ray 05/06/17 0921 Signed Impressions: Service Date/Time: Saturday, May 06, 2017 09:30 - CONCLUSION: 1. Interval intubation and placement of nasogastric tube. 2. Rotated exam demonstrating apparent locking of left costophrenic angle which could indicate an effusion. 3. Bibasilar opacity remains as well as discoid atelectasis in the right perihilar region. Calderon Moncada MD Objective Remarks GENERAL: Elderly male, lying in bed, recently intubated, sedated, critically ill HEENT: Normocephalic. Atraumatic. Pupils equal, round, reactive, conjugate. Mucous membranes are moist NECK: Trachea is midline. There is no JVD. CHEST: PRVC, FiO2 40%, SPO2 94%. Equal chest rise. Decreased breath sounds, elongated expiratory phase, moderate amount of expiratory wheezing CARDIOVASCULAR: Normal rate, irregularly irregular rhythm. A. fib by telemetry ABDOMEN: Soft, nontender, nondistended. No guarding. MUSCULOSKELETAL: Pulses 2+. No peripheral edema. NEUROLOGICAL: RASS -3. Recently intubated and sedated. A/P Assessment and Plan Assessment: 71-year-old male with COPD who presents with worsening shortness of breath leading to respiratory failure and requiring intubation mechanical ventilation. remains unable to separate from mechanical ventilation. long-term may not do well and this is recurrent respiratory failure (x 3 since december) . will consult palliative care to assist with goals and provide family support. goals remain aggressive for now. continue broad spectrum abx and await speciation of sputum culture. Acute Severe COPD Exacerbation Acute hypoxic and hypercarbic respiratory failure Healthcare Associated Pneumonia - vent bundle - hob elevated - nebs - mivf. - steroids - AM abg - start SBTs. - fentanyl, propofol for sedation - vanc, cefepime, flagyl, azithro - f/u cultures - SCDs, Lovenox - pepcid Critical care time: 33 minutes, exclusive of separately billable procedures. Linden Neri MD May 07, 2017 18:59
[2017-05-07] MEDS: RESP: ALBUTEROL 2.5 MG/IPRATROPIUM 0.5 MG NEB (PRN) INH (21:49)
[2017-05-08] VITALS (17 sets, daily range): BP systolic 98–139; BP diastolic 57–79; PULSE 71–131; RESP 16–19; TEMP 97.9–98.4; O2SAT 88–100
[2017-05-08] MEDS: RESP: ALBUTEROL 2.5 MG/IPRATROPIUM 0.5 MG NEB (SCH) INH ×8 (02:01→23:59)
[2017-05-08] MEDS: metroNIDAZOLE 500 MG INJ 100 ML IV SCH ×2 (02:16→07:46)
[2017-05-08] MEDS: CEFEPIME INJ 1,000 MG in SODIUM CHLORIDE 0.9% INJ 100 ML IV SCH ×2 (02:17→10:36)
[2017-05-08] MEDS: PROPOFOL 1000 MG/100 ML INJ 100 ML IV PRN ×3 (04:20→21:26)
[2017-05-08] MEDS ORDERED: PHARMACY ORDERED LAB ONE (04:45)
[2017-05-08 05:03] LABS: BICARBONATE 28.8 MEQ/L (21.0-32.0); CALCIUM 8.5 MG/DL (8.5-10.1); CREATININE 0.78 MG/DL (0.60-1.30)
[2017-05-08 05:22] LABS: HEMATOCRIT 37.2 % (39.0-51.0); HEMOGLOBIN 12.5 GM/DL (13.0-17.0); MEAN CELL VOLUME 94.3 FL (80.0-100.0); MEAN CORPUSCULAR HEMOGLOBIN 31.8 PG (27.0-34.0); MEAN CORPUSCULAR HGB CONC 33.7 % (32.0-36.0); MEAN PLATELET VOLUME 9.2 FL (7.0-11.0); PLATELET COUNT 230 TH/MM3 (150-450); RED BLOOD COUNT 3.94 MIL/MM3 (4.50-5.90); RED CELL DISTRIBUTION WIDTH 14.3 % (11.6-17.2); WHITE BLOOD COUNT 12.3 TH/MM3 (4.0-11.0)
[2017-05-08] MEDS: VANCOMYCIN INJ 1,500 MG in SODIUM CHLORID 0.9% 500 ML INJ 500 ML IV SCH (05:27)
[2017-05-08] MEDS: methylPREDNISolone SOD SUCC 125 MG/2 ML VIAL IV PUSH SCH ×2 (07:45→21:17)
[2017-05-08] MEDS: AZITHROMYCIN INJ 500 MG in SODIUM CHLOR 0.9% 250 ML INJ 250 ML IV SCH (07:46)
[2017-05-08] MEDS: CHLORHEXIDINE 0.12% (ORAL KIT) 15 ML CUP MT SCH ×2 (07:47→21:17)
--- NOTE | 2017-05-08 07:48 | RADRPT ---
EXAM DATE/TIME: 05/08/2017 07:15 [facility] COMPARISON: CHEST SINGLE AP, May 06, 2017, 9:30. INDICATIONS : Atelectasis. MEDICAL HISTORY : None. Cardiovascular disease. Congestive heart failure. Hypertension SURGICAL HISTORY : None. ENCOUNTER: Subsequent ACUITY: 3 days PAIN SCORE: Non-responsive. LOCATION: Bilateral chest FINDINGS: A single view of the chest demonstrates left basilar density and small pleural effusion. Right basila r atelectasis again seen. Endotracheal tube is approximately 1 cm above the stephanie. Nasogastric tube appears unchanged. Diminished lung volumes. Osseous structures are intact. CONCLUSION: Small left pleural effusion and probable adjacent atelectasis. Delroy Van MD on May 08, 2017 at 7:43 Board Certified Radiologist. This report was verified electronically.
[2017-05-08] MEDS ORDERED: DILTIAZEM 125 MG/NS 100 ML IV PRN ×2 (08:30)
[2017-05-08] MEDS: fentaNYL DRIP 250 ML IV PRN (11:09)
--- NOTE | 2017-05-08 12:02 | PD.CONS ---
Consult Service Palliative Care Consult Requested By Dr. Neri Primary Care Physician Unknown Reason for Consultation a. To assist with evaluation and management of symptoms including: b. To assist medical decision maker(s) with: better understanding of current medical conditions; weighing benefits/burdens of medical treatment options; making medical treatment decisions. HPI History of Present Illness Patient is a 71-year-old with a past medical history of COPD, A. fib, CHF, [place], CVA. Patient was hospitalized in July of last year for a CVA. Course of that hospitalization was complicated by respiratory failure, myocardial infarction, pneumonia. He was intubated, and went through stent placement. He was successfully medically extubated and had not required a tracheostomy. He had stays in various rehabilitation, and nursing facility in which there has been episodes of pneumonia, likely aspiration. His medical condition also complicated by confusion, at times agitation, and rehospitalization. Patient presented to the emergency department on 05/06/2017 with significant shortness of breath. He was initially placed on BiPAP for respiratory distress , but continues to decline. Patient subsequently was emergently intubated. * WBCs 15.5, hemoglobin is 13.7, hematocrit is 42.2, platelets 3:30 * Sodium is 143, potassium 4.3, chloride is 98, right carpal is 40.2, BUN is 28 , creatinine 0.76 * AST is 14, ALTs 14, alkaline phosphatase is 143, troponin I 0.03, BNP is 326 * Albumin is 3.0 * Urine is negative for nitrites or leukocyte esterase. * Blood cultures 2 was collected, so far no growth. * Nasal washing was negative for influenza A or B * Sputum culture preliminary results as positive for staph aureus * Legionella antigen is negative. * Chest x-ray shows right mid lung and patchy opacity at the lung basis. Patient was transferred to the ICU. 05/07/2017-patient remains intubated and sedated. Patient on antibiotics, steroids, nebulizers, IV fluids. 05/08/2017- patient remains intubated and sedated. Chest x-ray shows left pleural effusion and probable adjacent atelectasis. Palliative care was consulted to review goals of care with family given patient's chronic illness in various nursing/rehabilitation stays since July 2016. Patient on my visit is intubated and sedated. Patient's , son, niece is at bedside appropriately tearful. Spent time discussing extensively with family, reviewing patient's past medical history, rehabilitation visits, complications. We spoke about patient's challenges and possible scenarios in which decisions will need to be made. Goals of care at this time is following: ==Continue aggressive care short short of resuscitation. Family is hopeful that patient could be medically taken off the vent once COPD exacerbation/ pneumonia has resolved. They would want continue antibiotics, other treatments treatment. They understand given patient's history of aspiration and COPD that it may be a challenge. == If patient could not be weaned off the vent, per patient's living will, and per family patient would not want tracheostomy or peg. == If patient is medically extubated, per family patient would not want reintubation. Function/Cognitive Trajectory Patient since July has left-sided residual from stroke. Has been in various nursing facilities and rehabilitation. At times does not participate due to periods of confusion likely secondary from the stroke. Review of Systems ROS Limitations: Clinical Condition Constitutional: COMPLAINS OF: Fatigue Cardiovascular: COMPLAINS OF: Dyspnea on Exertion Psychiatric: COMPLAINS OF: Confusion (has confusion at times) Past Family Social History Coded Allergies: hornet venom (Unverified Allergy, Severe, Swelling, 12/10/16) Past Medical History Childhood asthma Congestive heart failure High cholesterol CVA Kidney stones COPD Obstructive sleep apnea Past Surgical History History of stent placement secondary to [place] Tonsillectomy Reported Medications Potassium chloride Niacin Metoprolol Multivitamin This individual Gabapentin Furosemide Vitamin Norvasc Atorvastatin Pradaxa Current Medications Medications (Trade) Dose Ordered Sig/Pauline Route Start Time Stop Time Status Last Admin (NS Flush) 2 ml UNSCH PRN IVF 05/06/17 08:15 Fentanyl Citrate 250 ml @ 5 mls/hr TITRATE PRN IV 05/06/17 09:15 05/07/17 18:44 Propofol 100 ml @ 0 mls/hr TITRATE PRN IV 05/06/17 09:15 05/08/17 04:20 Sodium Chloride 1,000 ml @ 40 mls/hr Q24H IV 05/06/17 10:45 05/07/17 18:45 Potassium Chloride 100 ml @ 50 mls/hr Q2H PRN IV 05/06/17 14:15 Potassium Chloride 100 ml @ 50 mls/hr Q2H PRN IV 05/06/17 14:15 (K-Lyte Cl Eff) 50 meq UNSCH PRN PO 05/06/17 14:15 Potassium Chloride 100 ml @ 25 mls/hr UNSCH PRN IV 05/06/17 14:15 Potassium Chloride 100 ml @ 50 mls/hr Q2H PRN IV 05/06/17 14:15 Magnesium Sulfate 4 gm/Sodium Chloride 100 ml @ 50 mls/hr UNSCH PRN IV 05/06/17 14:15 (Mag-Ox) 800 mg UNSCH PRN PO 05/06/17 14:15 Magnesium Sulfate 2 gm/Sodium Chloride 100 ml @ 50 mls/hr UNSCH PRN IV 05/06/17 14:15 (K-Phos) 2,000 mg Q4H PRN PO 05/06/17 14:15 Sodium Phosphate 30 mmol/Sodium Chloride 250 ml @ 42 mls/hr UNSCH PRN IV 05/06/17 14:15 (K-Phos) 2,000 mg UNSCH PRN PO/TUBE 05/06/17 14:15 Potassium Phosphate 30 mmol/ Sodium Chloride 260 ml @ 42 mls/hr UNSCH PRN IV 05/06/17 14:15 (Peridex 0.12% Liq) 15 ml BID@08,20 MT 05/06/17 20:00 05/08/17 07:47 Cefepime HCl 1000 mg/Sodium Chloride 100 ml @ 200 mls/hr Q8H IV 05/06/17 19:00 05/08/17 10:36 Pharmacy Profile Note 0 ml @ 0 mls/hr UNSCH OTHER 05/06/17 14:15 Azithromycin 500 mg/Sodium Chloride 250 ml @ 250 mls/hr Q24H IV 05/07/17 08:00 05/08/17 07:46 Metronidazole 100 ml @ 100 mls/hr Q6H IV 05/06/17 15:00 05/08/17 07:46 (SoluMEDROL INJ) 60 mg Q12HR IV PUSH 05/06/17 21:00 05/08/17 07:45 (Duoneb Neb) 1 ampule Q2HR NEB PRN INH 05/06/17 14:15 05/07/17 21:49 (Duoneb Neb) 1 ampule Q4HR NEB INH 05/06/17 16:00 05/08/17 04:10 Diltiazem HCl 125 mg/Sodium Chloride 125 ml @ 5 mls/hr TITRATE PRN IV 05/08/17 08:30 Vancomycin HCl 1500 mg/Sodium Chloride 515 ml @ 257.5 mls/ hr Q18H IV 05/08/17 23:00 Miscellaneous Information SPECIFIC LAB TO BE ... ONCE ONCE .XX 05/11/17 04:45 05/11/17 04:46 Family History Unable to elicit at this time due to clinical condition Substance Use Tobacco: History of tobacco use Alcohol: No Prescription med abuse: No Illicits: No Living Will: Copy in medical record Health Care Surrogate: Copy in medical record Health Care Surrogate(s): Geneva Chase [phone] 1st and 2nd alternate repectively. Arsenio Stone (son) [phone] Zenia Poon (daughter) [phone] Physical Exam Vital Signs Date Time Temp Pulse Resp B/P (MAP) Pulse Ox O2 Delivery O2 Flow Rate FiO2 05/08/17 07:55 88 100 05/08/17 06:00 131 05/08/17 05:31 100 05/08/17 05:03 70 05/08/17 05:01 99 40 05/08/17 04:00 86 05/08/17 04:00 50 05/08/17 04:00 98.3 86 17 128/79 (95) 94 05/08/17 02:00 100 40 05/08/17 02:00 81 05/08/17 00:00 78 05/08/17 00:00 50 05/08/17 00:00 98.2 78 16 117/79 (92) 95 05/07/17 22:00 83 05/07/17 21:00 96 50 05/07/17 20:00 50 05/07/17 20:00 98.4 83 15 118/73 (88) 94 05/07/17 20:00 83 05/07/17 18:00 82 05/07/17 16:48 98 50 05/07/17 16:00 98.5 89 15 113/72 (86) 96 05/07/17 16:00 40 05/07/17 16:00 89 05/07/17 14:00 97 05/07/17 13:31 97 50 05/07/17 12:00 100 05/07/17 12:00 98.0 100 16 134/84 (101) 93 05/07/17 12:00 40 Exam CONSTITUTIONAL/GENERAL: This is an adequately nourished patient, in no apparent distress. TUBES/LINES/DRAINS: SKIN: No jaundice, rashes, or lesions. Ecchymoses on upper extremities. No wounds seen anteriorly. Skin temperature appropriate. Not diaphoretic. HEAD: Atraumatic. Normocephalic. EYES: Pupils equal and round and reactive. Extraocular motions intact. No scleral icterus. No injection or drainage. Fundi not examined. ENT: Hearing grossly normal. Nose without bleeding or purulent drainage. Throat without visible erythema, exudates, masses, or lesions. NECK: Trachea midline. Supple, nontender. No palpable thyroid enlargement or nodularity. CARDIOVASCULAR: Regular rate and rhythm without murmurs, gallops, or rubs. No JVD. Peripheral pulses symmetric. RESPIRATORY/CHEST: Symmetric, unlabored respirations. Clear to auscultation. Breath sounds equal bilaterally. No wheezes, rales, or rhonchi. GASTROINTESTINAL: Abdomen soft, non-tender, nondistended. No hepato-splenomegaly , or palpable masses. No guarding. Bowel sounds present. GENITOURINARY: Without palpable bladder distension. Weldon catheter in place. MUSCULOSKELETAL: Extremities without clubbing, cyanosis, or edema. No joint tenderness or effusion noted. No calf tenderness. No mottling or clubbing. LYMPHATICS: No palpable cervical or supraclavicular adenopathy. NEUROLOGICAL: Awake and alert. Motor and sensory grossly within normal limits. Follows commands. Cognitively sharp. Moves all extremities. PSYCHIATRIC: No obvious anxiety/depression. no apparent hallucinations or other psychotic thought process. Diagnostic Tests Laboratory Laboratory Tests Test 05/06/17 08:09 05/06/17 08:15 05/06/17 09:30 05/06/17 09:45 Blood Gas Puncture Site RT RADIAL RT RADIAL Blood Gas Patient Temperature 98.6 98.6 Blood Gas HCO3 42 mmol/L (22-26) 36 mmol/L (22-26) Blood Gas Base Excess 15.0 mmol/L (-2-2) 11.4 mmol/L (-2-2) Blood Gas Oxygen Saturation 93 % (90-100) 96 % (90-100) Arterial Blood pH 7.30 (7.380-7.420) 7.43 (7.380-7.420) Arterial Blood Partial Pressure CO2 88 mmHg (38-42) 55 mmHg (38-42) Arterial Blood Partial Pressure O2 78 mmHG (61-120) 91 mmHG (61-120) Arterial Blood Oxygen Content 18.0 Vol % (12.0-20.0) 19.4 Vol % (12.0-20.0) Arterial Blood Carboxyhemoglobin 1.6 % (0-4) 1.5 % (0-4) Arterial Blood Methemoglobin 0.6 % (0-2) 0.4 % (0-2) Blood Gas Hemoglobin 13.7 G/DL (12.0-16.0) 14.3 G/DL (12.0-16.0) Oxygen Delivery Device BiPAP VENTILATOR Blood Gas Inspired Oxygen 45 % White Blood Count 15.5 TH/MM3 (4.0-11.0) Red Blood Count 4.38 MIL/MM3 (4.50-5.90) Hemoglobin 13.7 GM/DL (13.0-17.0) Hematocrit 42.2 % (39.0-51.0) Mean Corpuscular Volume 96.4 FL (80.0-100.0) Mean Corpuscular Hemoglobin 31.2 PG (27.0-34.0) Mean Corpuscular Hemoglobin Concent 32.4 % (32.0-36.0) Red Cell Distribution Width 14.6 % (11.6-17.2) Platelet Count 330 TH/MM3 (150-450) Mean Platelet Volume 8.6 FL (7.0-11.0) Neutrophils (%) (Auto) 88.2 % (16.0-70.0) Lymphocytes (%) (Auto) 3.5 % (9.0-44.0) Monocytes (%) (Auto) 7.9 % (0.0-8.0) Eosinophils (%) (Auto) 0.1 % (0.0-4.0) Basophils (%) (Auto) 0.3 % (0.0-2.0) Neutrophils # (Auto) 13.6 TH/MM3 (1.8-7.7) Lymphocytes # (Auto) 0.5 TH/MM3 (1.0-4.8) Monocytes # (Auto) 1.2 TH/MM3 (0-0.9) Eosinophils # (Auto) 0.0 TH/MM3 (0-0.4) Basophils # (Auto) 0.0 TH/MM3 (0-0.2) CBC Comment DIFF FINAL Differential Comment Prothrombin Time 12.5 SEC (9.8-11.6) Prothromb Time International Ratio 1.2 RATIO Activated Partial Thromboplast Time 30.4 SEC (24.3-30.1) Blood Urea Nitrogen 28 MG/DL (7-18) Creatinine 0.76 MG/DL (0.60-1.30) Random Glucose 123 MG/DL (74-106) Total Protein 7.2 GM/DL (6.4-8.2) Albumin 3.0 GM/DL (3.4-5.0) Calcium Level 9.1 MG/DL (8.5-10.1) Alkaline Phosphatase 143 U/L (45-117) Aspartate Amino Transf (AST/SGOT) 14 U/L (15-37) Alanine Aminotransferase (ALT/SGPT) 14 U/L (12-78) Total Bilirubin 0.3 MG/DL (0.2-1.0) Sodium Level 143 MEQ/L (136-145) Potassium Level 4.3 MEQ/L (3.5-5.1) Chloride Level 98 MEQ/L (98-107) Carbon Dioxide Level 40.2 MEQ/L (21.0-32.0) Anion Gap 5 MEQ/L (5-15) Estimat Glomerular Filtration Rate 101 ML/MIN (>89) Lactic Acid Level 1.1 mmol/L (0.4-2.0) Total Creatine Kinase 20 U/L (39-308) Troponin I 0.03 NG/ML (0.02-0.05) B-Type Natriuretic Peptide 326 PG/ML (0-100) Thyroid Stimulating Hormone 3rd Gen 0.182 uIU/ML (0.358-3.740) Urine Color YELLOW (YELLW/STRAW) Urine Turbidity CLEAR (CLEAR) Urine pH 5.0 (5.0-8.5) Urine Specific [place] 1.015 (1.002-1.035) Urine Protein NEG mg/dL (NEG-TRACE) Urine Glucose (UA) NEG mg/dL (NEG) Urine Ketones NEG mg/dL (NEG) Urine Occult Blood NEG (NEG) Urine Nitrite NEG (NEG) Urine Bilirubin NEG (NEG) Urine Urobilinogen LESS THAN 2.0 MG/DL (LESS Urine Leukocyte Esterase NEG (NEG) Urine RBC 1 /hpf (0-3) Urine WBC LESS THAN 1 /hpf (0-5) Urine Bacteria RARE /hpf (NONE) Urine Hyaline Casts 25 /lpf (RARE) Urine Mucus FEW /lpf (OCC) Microscopic Urinalysis Comment CULT NOT INDICATED Blood Gas Ventilator Setting Test 05/07/17 05:05 05/07/17 12:47 05/08/17 03:31 05/08/17 06:52 White Blood Count 12.7 TH/MM3 (4.0-11.0) 12.3 TH/MM3 (4.0-11.0) Red Blood Count 4.31 MIL/MM3 (4.50-5.90) 3.94 MIL/MM3 (4.50-5.90) Hemoglobin 13.5 GM/DL (13.0-17.0) 12.5 GM/DL (13.0-17.0) Hematocrit 41.9 % (39.0-51.0) 37.2 % (39.0-51.0) Mean Corpuscular Volume 97.2 FL (80.0-100.0) 94.3 FL (80.0-100.0) Mean Corpuscular Hemoglobin 31.4 PG (27.0-34.0) 31.8 PG (27.0-34.0) Mean Corpuscular Hemoglobin Concent 32.3 % (32.0-36.0) 33.7 % (32.0-36.0) Red Cell Distribution Width 14.2 % (11.6-17.2) 14.3 % (11.6-17.2) Platelet Count 280 TH/MM3 (150-450) 230 TH/MM3 (150-450) Mean Platelet Volume 8.8 FL (7.0-11.0) 9.2 FL (7.0-11.0) Blood Urea Nitrogen 36 MG/DL (7-18) 41 MG/DL (7-18) Creatinine 0.79 MG/DL (0.60-1.30) 0.78 MG/DL (0.60-1.30) Random Glucose 123 MG/DL (74-106) 113 MG/DL (74-106) Calcium Level 8.8 MG/DL (8.5-10.1) 8.5 MG/DL (8.5-10.1) Sodium Level 143 MEQ/L (136-145) 146 MEQ/L (136-145) Potassium Level 4.0 MEQ/L (3.5-5.1) 3.7 MEQ/L (3.5-5.1) Chloride Level 104 MEQ/L (98-107) 108 MEQ/L (98-107) Carbon Dioxide Level 31.3 MEQ/L (21.0-32.0) 28.8 MEQ/L (21.0-32.0) Anion Gap 8 MEQ/L (5-15) 9 MEQ/L (5-15) Estimat Glomerular Filtration Rate 96 ML/MIN (>89) 98 ML/MIN (>89) Blood Gas Puncture Site LT RADIAL LT RADIAL Blood Gas Patient Temperature 98.6 98.6 Blood Gas HCO3 30 mmol/L (22-26) 28 mmol/L (22-26) Blood Gas Base Excess 5.1 mmol/L (-2-2) 0.3 mmol/L (-2-2) Blood Gas Oxygen Saturation 91 % (90-100) 88 % (90-100) Arterial Blood pH 7.37 (7.380-7.420) 7.18 (7.380-7.420) Arterial Blood Partial Pressure CO2 54 mmHg (38-42) 77 mmHg (38-42) Arterial Blood Partial Pressure O2 70 mmHg (61-120) 71 mmHg (61-120) Arterial Blood Oxygen Content 16.3 Vol % (12.0-20.0) 16.6 Vol % (12.0-20.0) Arterial Blood Carboxyhemoglobin 0.7 % (0-4) 0.4 % (0-4) Arterial Blood Methemoglobin 1.2 % (0-2) 1.2 % (0-2) Blood Gas Hemoglobin 12.7 G/DL (12.0-16.0) 13.4 G/DL (12.0-16.0) Oxygen Delivery Device VENTILATOR VENTILATOR Blood Gas Ventilator Setting 500/AC15/PEEP5 500/15/PEEP5 Blood Gas Inspired Oxygen 50 % 100 % Vancomycin Level Trough 26.8 MCG/ML (5.0-10.0) Result Diagram: 05/08/17 0331 05/08/17 0331 Microbiology Microbiology Date/Time Source Procedure Growth Status 05/06/17 08:20 Blood Peripheral Aerobic Blood Culture - Preliminary NO GROWTH IN 2 DAYS Resulted 05/06/17 08:20 Blood Peripheral Anaerobic Blood Culture - Preliminary NO GROWTH IN 2 DAYS Resulted 05/06/17 08:15 Blood Peripheral Aerobic Blood Culture - Preliminary NO GROWTH IN 2 DAYS Resulted 05/06/17 08:15 Blood Peripheral Anaerobic Blood Culture - Preliminary NO GROWTH IN 2 DAYS Resulted 05/06/17 14:00 Sputum Endotracheal Gram Stain - Final Resulted 05/06/17 14:00 Sputum Culture - Preliminary Staphylococcus Aureus Resulted 05/06/17 08:15 Nasal Washing Influenza Types A,B Antigen ([place]) - Final NEGATIVE FOR FLU A AND B ANTIGEN.... Complete 05/07/17 12:28 Urine Catheterized Urine Legionella Antigen - Final PRESUMPTIVE NEGATIVE FOR LEGIONELLA P... Complete 05/07/17 12:28 Urine Catheterized Urine Streptococcus pneumoniae Antigen (M - Final PRESUMPTIVE NEGATIVE FOR STREPTOCOCCU... Complete Patient/Family Conference Issues Discussed: * Palliative care role, purpose, approach * Additional medical, psychosocial, and spiritual history * Patients general health, functional status, and cognitive changes in the months leading up to the current hospitalization * Patient/family understanding of the current medical problems * Patient/family understanding of prognosis * Patients goals of care as best understood from advance directives and/or conversations and/or values * Current medical treatment options and benefits/burdens of those options * Likely scenarios comparing ongoing aggressive care with a transition to comfort measures only * Questions answered to the best of my ability * Palliative care contact information provided Assessment and Plan Pertinent Non-Medical Issues Psychosocial: Originally from [place], has 4 children 3 sons one daughter from a previous marriage. to current Geneva Stone Spiritual: Hoahaoism but not quaker Legal:Geneva Stone [phone] and primary healthcare surrogate 1st and 2nd alternate repectively. Arsenio Stone (son) [phone] Zenia Ayah (daughter) [phone] Ethical issues impacting care: None Important Contacts Geneva Stone [phone] 1st and 2nd alternate repectively. Arsenio Stone (son) [phone] Zenia Ayah (daughter) [phone] Prognosis Prognosis is guarded for current hospitalization, poor overall. History of debility and gradual decline following stroke in July 2016. History of recurrent aspiration pneumonia, COPD, confusion, extended nursing/ rehabilitation facility stay. If patient were to survive current hospitalization, at risk of continuing rehospitalization infection, wounds, and challenges to care secondary to agitation. Code Status: No Code Plan == capacity- currently has no capacity to make medical decisions, currently. == Decision maker. Geneva Stone ( and designated health care surrogate). == symptom: dyspnea- manage/ defer to manager validation. confusion- has history after cva and pneumonia episodes in the past. Family is amenable to sedation for comfort and control of agitation if it presents itself. No new med rec. == goals of care: Goals of care at this time is following: * Continue aggressive care short short of resuscitation. Family is hopeful that patient could be medically taken off the vent once COPD exacerbation/ pneumonia has resolved. They would want continue antibiotics, other treatments treatment. They understand given patient's history of aspiration and COPD that it may be a challenge. * If patient could not be weaned off the vent, per patient's living will, and per family patient would not want tracheostomy or peg. * If patient is able to be medically extubated, per family, patient would not want reintubation. == Palliative care will follow to make recommendation for symptom managment and review goals of care as clinical condition evolves. Family understands palliative care will not be available over the weekend. Thank you for the opportunity to participate in the care of Mr. Stone. Attestation To help prompt me to consider important information that might be impacting today's encounter and assessment, information from prior notes written by myself or my colleagues may have been "brought forward" into today's note. My signature on this note, however, is an attestation that I personally performed the exam, history, and/or decision-making noted today, and, unless otherwise indicated, the interactions with patient, family, and staff as well as the review of records all occurred today. I also attest that the listed assessment and stated plan reflect my best clinical judgment today based on the combination of historical information, prior notes, and today's exam/ interactions. When time spent is documented, it refers only to time spent today by the signer, or if indicated, combined time spent today by collaborating physician/nurse practitioner. Jose Barbosa MD May 08, 2017 12:02
--- NOTE | 2017-05-08 15:10 | HHI.CCPN ---
Subjective Remarks/Hospital Course Hospital Course: This is a 71-year-old patient with a history of COPD and atrial fibrillation who presented to the emergency department with a report of chest pain, but resolved on the way to the hospital. He has a history of CVA with residual left -sided weakness. In the emergency department he was significant short breath and was placed on BiPAP for respiratory distress. ABG despite BiPAP demonstrates a PCO2 of 88 and the patient continued to decline despite our attempts and he was intubated by the emergency department physician. When I evaluated the patient, the patient is artery recently intubated and sedated. No additional information is available from the patient. Chest x-ray demonstrates questionable right lung atelectasis versus possible early consolidation, possible viral/atypical pneumonia. Subjective: 05/07: no improvements. remains on vent. discussed with at length: apparently he has had significant functional decline since stroke in 12/2016, and has had multiple repeat hospitalizations, including SNF, LTAC, rehab level care, and has continued to decline. this likely represents a slow terminal decline in function. expressed my concern that he may not get back to functional status. goals remain aggressive for now. sputum growing staph. 05/08: no meaningful improvements. more hypercarbic today: pco2 back in the 70s. sputum growing staph aureus, will narrow spectrum, but leave atypical coverage given COPD and clinical course that may suggest atypical pneumonia. palliative consulted. Objective Vital Signs Date Time Temp Pulse Resp B/P (MAP) Pulse Ox O2 Delivery O2 Flow Rate FiO2 05/08/17 09:00 142 05/08/17 07:55 88 100 05/08/17 04:00 98.3 17 128/79 (95) 05/06/17 12:00 Ventilator 05/06/17 08:11 4.00 Intake and Output 05/08/17 05/08/17 05/08/17 07:59 15:59 23:59 Intake Total 1217.5 ml Output Total 400 ml Balance 817.5 ml Result Diagram: 05/08/17 0331 05/08/17 0331 Other Results Microbiology Date/Time Source Procedure Growth Status 05/06/17 14:00 Sputum Endotracheal Gram Stain - Final Complete 05/06/17 14:00 Sputum Culture - Final Staphylococcus Aureus Complete 05/06/17 08:15 Nasal Washing Influenza Types A,B Antigen ([place]) - Final NEGATIVE FOR FLU A AND B ANTIGEN.... Complete 05/07/17 12:28 Urine Catheterized Urine Legionella Antigen - Final PRESUMPTIVE NEGATIVE FOR LEGIONELLA P... Complete 05/07/17 12:28 Urine Catheterized Urine Streptococcus pneumoniae Antigen (M - Final PRESUMPTIVE NEGATIVE FOR STREPTOCOCCU... Complete Laboratory Tests Test 05/08/17 06:52 05/08/17 14:24 Blood Gas Puncture Site LT RADIAL LT RADIAL Blood Gas Patient Temperature 98.6 98.6 Blood Gas HCO3 28 mmol/L (22-26) 27 mmol/L (22-26) Blood Gas Base Excess 0.3 mmol/L (-2-2) 1.8 mmol/L (-2-2) Blood Gas Oxygen Saturation 88 % (90-100) 93 % (90-100) Arterial Blood pH 7.18 (7.380-7.420) 7.31 (7.380-7.420) Arterial Blood Partial Pressure CO2 77 mmHg (38-42) 56 mmHg (38-42) Arterial Blood Partial Pressure O2 71 mmHg (61-120) 76 mmHg (61-120) Arterial Blood Oxygen Content 16.6 Vol % (12.0-20.0) 17.2 Vol % (12.0-20.0) Arterial Blood Carboxyhemoglobin 0.4 % (0-4) 0.7 % (0-4) Arterial Blood Methemoglobin 1.2 % (0-2) 1.3 % (0-2) Blood Gas Hemoglobin 13.4 G/DL (12.0-16.0) 13.2 G/DL (12.0-16.0) Oxygen Delivery Device VENTILATOR VENTILATOR Blood Gas Ventilator Setting 500/15/PEEP5 500/18/PEEP5 Blood Gas Inspired Oxygen 100 % 100 % Imaging Last Impressions Chest X-Ray 05/06/17 0921 Signed Impressions: Service Date/Time: Saturday, May 06, 2017 09:30 - CONCLUSION: 1. Interval intubation and placement of nasogastric tube. 2. Rotated exam demonstrating apparent locking of left costophrenic angle which could indicate an effusion. 3. Bibasilar opacity remains as well as discoid atelectasis in the right perihilar region. Calderon Moncada MD Objective Remarks GENERAL: Elderly male, lying in bed, recently intubated, sedated, critically ill HEENT: Normocephalic. Atraumatic. Pupils equal, round, reactive, conjugate. Mucous membranes are moist NECK: Trachea is midline. There is no JVD. CHEST: PRVC, FiO2 40%, SPO2 94%. Equal chest rise. Decreased breath sounds, elongated expiratory phase, moderate amount of expiratory wheezing CARDIOVASCULAR: Normal rate, irregularly irregular rhythm. A. fib by telemetry ABDOMEN: Soft, nontender, nondistended. No guarding. MUSCULOSKELETAL: Pulses 2+. No peripheral edema. NEUROLOGICAL: RASS -3. Recently intubated and sedated. A/P Assessment and Plan Assessment: 71-year-old male with COPD who presents with worsening shortness of breath leading to respiratory failure and requiring intubation mechanical ventilation. remains unable to separate from mechanical ventilation. long-term may not do well and this is recurrent respiratory failure (x 3 since december) . palliative care involved. hypercarbia worse today. no meaningful improvements. will again modify minute ventilation. continue steroids and abx. narrow spectrum of coverage. Acute Severe COPD Exacerbation Acute hypoxic and hypercarbic respiratory failure Healthcare Associated Pneumonia: Staph aureus - vent bundle - hob elevated - nebs - mivf. - steroids - AM abg - daily SBTs. - fentanyl, propofol for sedation - de-escalate abx therapy to Rocephin x 7 days. leave azithro x 5 days given clinical suspicion for atypical pna. - SCDs, Lovenox - Linden Linda MD May 08, 2017 15:10
[2017-05-08] MEDS: SODIUM CHLOR 0.9% 1000 ML INJ 1,000 ML IV SCH (16:21)
[2017-05-08] MEDS: cefTRIAXone INJ 1,000 MG in SODIUM CHLORIDE 0.9% INJ 100 ML IV SCH (16:21)
[2017-05-08 17:40] LABS: AMORPHOUS SEDIMENT, URINE RARE; BILIRUBIN, URINE NEG (NEG); BLOOD, URINE NEG (NEG); GLUCOSE,URINE NEG (NEG); KETONE, URINE TRACE mg/dL (NEG); NITRITE,URINE NEG (NEG); SQUAMOUS EPITHELIAL CELL URINE <1 /hpf (0-5); URINE COLOR YELLOW (YELLW/STRAW); URINE LEUKOCYTE ESTERASE TRACE (NEG)
[2017-05-08] MEDS ORDERED: CHLORHEXIDINE GLUCONATE 2 % 1 PACK (2 CLOTHS)(extra cloths) TOPICAL PRN (21:15)
[2017-05-08] MEDS: CHLORHEXIDINE GLUCONATE 2 % 1 PACK (2 CLOTHS)(taper/protocol) TOPICAL SCH (21:18)
[2017-05-08] MEDS ORDERED: VANCOMYCIN INJ 1,500 MG in SODIUM CHLORID 0.9% 500 ML INJ 500 ML IV SCH (23:00)
[2017-05-09] VITALS (36 sets, daily range): BP systolic 99–141; BP diastolic 55–91; PULSE 62–109; RESP 17–30; TEMP 98–99.7; O2SAT 84–100
[2017-05-09] MEDS: DILTIAZEM HCL 30 MG TAB OG-TUBE SCH ×5 (00:32→23:38)
[2017-05-09] MEDS: RESP: ALBUTEROL 2.5 MG/IPRATROPIUM 0.5 MG NEB (SCH) INH ×6 (03:28→23:43)
[2017-05-09] MEDS: fentaNYL DRIP 250 ML IV PRN (03:44)
[2017-05-09] MEDS: PROPOFOL 1000 MG/100 ML INJ 100 ML IV PRN (03:45)
[2017-05-09] MEDS: CHLORHEXIDINE 0.12% (ORAL KIT) 15 ML CUP MT SCH ×2 (08:00→21:05)
[2017-05-09] MEDS: AZITHROMYCIN INJ 500 MG in SODIUM CHLOR 0.9% 250 ML INJ 250 ML IV SCH (09:01)
[2017-05-09] MEDS: methylPREDNISolone SOD SUCC 125 MG/2 ML VIAL IV PUSH SCH ×2 (09:01→20:56)
[2017-05-09 09:06] LABS: HEMATOCRIT 39.3 % (39.0-51.0); HEMOGLOBIN 12.7 GM/DL (13.0-17.0); MEAN CELL VOLUME 96.1 FL (80.0-100.0); MEAN CORPUSCULAR HGB CONC 32.2 % (32.0-36.0); MEAN PLATELET VOLUME 8.7 FL (7.0-11.0); PLATELET COUNT 200 TH/MM3 (150-450); RED BLOOD COUNT 4.09 MIL/MM3 (4.50-5.90); RED CELL DISTRIBUTION WIDTH 14.3 % (11.6-17.2); WHITE BLOOD COUNT 13.5 TH/MM3 (4.0-11.0)
[2017-05-09 09:36] LABS: BICARBONATE 29.8 MEQ/L (21.0-32.0); CALCIUM 8.8 MG/DL (8.5-10.1); CREATININE 0.97 MG/DL (0.60-1.30)
--- NOTE | 2017-05-09 10:04 | HHI.CCPN ---
Subjective Remarks/Hospital Course Hospital Course: This is a 71-year-old patient with a history of COPD and atrial fibrillation who presented to the emergency department with a report of chest pain, but resolved on the way to the hospital. He has a history of CVA with residual left -sided weakness. In the emergency department he was significant short breath and was placed on BiPAP for respiratory distress. ABG despite BiPAP demonstrates a PCO2 of 88 and the patient continued to decline despite our attempts and he was intubated by the emergency department physician. When I evaluated the patient, the patient is artery recently intubated and sedated. No additional information is available from the patient. Chest x-ray demonstrates questionable right lung atelectasis versus possible early consolidation, possible viral/atypical pneumonia. Subjective: 05/07: no improvements. remains on vent. discussed with at length: apparently he has had significant functional decline since stroke in 12/2016, and has had multiple repeat hospitalizations, including SNF, LTAC, rehab level care, and has continued to decline. this likely represents a slow terminal decline in function. expressed my concern that he may not get back to functional status. goals remain aggressive for now. sputum growing staph. 2: no meaningful improvements. more hypercarbic today: pco2 back in the 70s. sputum growing staph aureus, will narrow spectrum, but leave atypical coverage given COPD and clinical course that may suggest atypical pneumonia. palliative consulted. 05/09: no significant improvements. wbc still elevated, but may be steroid response. still altered with metabolic encephalopathy. weaning sedation. failing cpap trials. has required LTAC level care for slow wean before: may require again. Objective Vital Signs Date Time Temp Pulse Resp B/P (MAP) Pulse Ox O2 Delivery O2 Flow Rate FiO2 05/09/17 06:00 74 05/09/17 04:00 98.0 19 128/75 (92) 93 05/09/17 04:00 100 05/06/17 12:00 Ventilator 05/06/17 08:11 4.00 Intake and Output 05/09/17 05/09/17 05/09/17 07:59 15:59 23:59 Intake Total 987 ml Output Total 250 ml Balance 737 ml Result Diagram: 05/09/17 0830 05/09/17 0830 Other Results Microbiology Date/Time Source Procedure Growth Status 05/06/17 14:00 Sputum Endotracheal Gram Stain - Final Complete 05/06/17 14:00 Sputum Culture - Final Staphylococcus Aureus Complete 05/07/17 12:28 Urine Catheterized Urine Legionella Antigen - Final PRESUMPTIVE NEGATIVE FOR LEGIONELLA P... Complete 05/07/17 12:28 Urine Catheterized Urine Streptococcus pneumoniae Antigen (M - Final PRESUMPTIVE NEGATIVE FOR STREPTOCOCCU... Complete Laboratory Tests Test 05/08/17 14:24 Blood Gas Puncture Site LT RADIAL Blood Gas Patient Temperature 98.6 Blood Gas HCO3 27 mmol/L (22-26) Blood Gas Base Excess 1.8 mmol/L (-2-2) Blood Gas Oxygen Saturation 93 % (90-100) Arterial Blood pH 7.31 (7.380-7.420) Arterial Blood Partial Pressure CO2 56 mmHg (38-42) Arterial Blood Partial Pressure O2 76 mmHg (61-120) Arterial Blood Oxygen Content 17.2 Vol % (12.0-20.0) Arterial Blood Carboxyhemoglobin 0.7 % (0-4) Arterial Blood Methemoglobin 1.3 % (0-2) Blood Gas Hemoglobin 13.2 G/DL (12.0-16.0) Oxygen Delivery Device VENTILATOR Blood Gas Ventilator Setting 500/18/PEEP5 Blood Gas Inspired Oxygen 100 % Imaging Last Impressions Chest X-Ray 05/06/17 0921 Signed Impressions: Service Date/Time: Saturday, May 06, 2017 09:30 - CONCLUSION: 1. Interval intubation and placement of nasogastric tube. 2. Rotated exam demonstrating apparent locking of left costophrenic angle which could indicate an effusion. 3. Bibasilar opacity remains as well as discoid atelectasis in the right perihilar region. Calderon Moncada MD Objective Remarks GENERAL: Elderly male, lying in bed, intubated, sedated, critically ill HEENT: Normocephalic. Atraumatic. Pupils equal, round, reactive, conjugate. Mucous membranes are moist NECK: Trachea is midline. There is no JVD. CHEST: PRVC, FiO2 40%, SPO2 93%. Equal chest rise. Decreased breath sounds, elongated expiratory phase, moderate amount of expiratory wheezing CARDIOVASCULAR: Normal rate, irregularly irregular rhythm. A. fib by telemetry ABDOMEN: Soft, nontender, nondistended. No guarding. MUSCULOSKELETAL: Pulses 2+. No peripheral edema. NEUROLOGICAL: RASS -3. withdraws to pain. does not follow commands. A/P Assessment and Plan Assessment: 71-year-old male with COPD who presents with worsening shortness of breath leading to respiratory failure and requiring intubation mechanical ventilation. remains unable to separate from mechanical ventilation. long-term may not do well and this is recurrent respiratory failure (x 3 since December) . palliative care involved. no meaningful improvements. continue supportive care. daily SBTs. Acute Severe COPD Exacerbation Acute hypoxic and hypercarbic respiratory failure Healthcare Associated Pneumonia: Staph aureus Atrial fibrillation with rapid ventricular response Acute Hypoactive delirium - vent bundle - hob elevated - nebs - mivf. - steroids - d/c fentanyl, propofol - start precedex - goal RASS -2. - daily SBTs. - diltiazem 30mg po q6h. s/p drip. - Rocephin x 7 days for staph aureus HCAP. azithro x 5 days given clinical suspicion for atypical pna on CXR. - SCDs, Lovenox - Linden Linda MD May 09, 2017 10:04
[2017-05-09] MEDS: DEXMEDETOMIDINE INJ 200 MCG in SODIUM CHLORIDE 0.9% INJ 50 ML IV PRN ×3 (10:31→22:11)
[2017-05-09] MEDS: FREE WATER G-TUBE SCH ×3 (12:00→23:38)
[2017-05-09] MEDS: cefTRIAXone INJ 1,000 MG in SODIUM CHLORIDE 0.9% INJ 100 ML IV SCH (15:00)
[2017-05-09] MEDS: SODIUM CHLOR 0.9% 1000 ML INJ 1,000 ML IV SCH (16:45)
[2017-05-10] VITALS (37 sets, daily range): BP systolic 97–152; BP diastolic 52–94; PULSE 52–147; RESP 13–34; TEMP 98–99.1; O2SAT 85–99
[2017-05-10] MEDS: DEXMEDETOMIDINE INJ 200 MCG in SODIUM CHLORIDE 0.9% INJ 50 ML IV PRN ×4 (02:20→10:03)
[2017-05-10] MEDS: RESP: ALBUTEROL 2.5 MG/IPRATROPIUM 0.5 MG NEB (SCH) INH ×5 (03:14→20:24)
[2017-05-10 04:06] LABS: HEMATOCRIT 40.7 % (39.0-51.0); MEAN CORPUSCULAR HEMOGLOBIN 30.3 PG (27.0-34.0); MEAN CORPUSCULAR HGB CONC 31.9 % (32.0-36.0); MEAN PLATELET VOLUME 9.3 FL (7.0-11.0); PLATELET COUNT 167 TH/MM3 (150-450); RED BLOOD COUNT 4.28 MIL/MM3 (4.50-5.90); RED CELL DISTRIBUTION WIDTH 13.7 % (11.6-17.2); WHITE BLOOD COUNT 14.3 TH/MM3 (4.0-11.0)
[2017-05-10 04:22] LABS: BICARBONATE 30.1 MEQ/L (21.0-32.0); CALCIUM 8.6 MG/DL (8.5-10.1); CREATININE 0.84 MG/DL (0.60-1.30)
[2017-05-10] MEDS: CHLORHEXIDINE GLUCONATE 2 % 1 PACK (2 CLOTHS)(taper/protocol) TOPICAL SCH (05:21)
[2017-05-10] MEDS: FREE WATER G-TUBE SCH ×3 (05:21→18:00)
[2017-05-10] MEDS: DILTIAZEM HCL 30 MG TAB OG-TUBE SCH ×3 (05:22→18:30)
[2017-05-10] MEDS: AZITHROMYCIN INJ 500 MG in SODIUM CHLOR 0.9% 250 ML INJ 250 ML IV SCH (08:07)
[2017-05-10] MEDS: CHLORHEXIDINE 0.12% (ORAL KIT) 15 ML CUP MT SCH ×2 (08:07→21:20)
[2017-05-10] MEDS: methylPREDNISolone SOD SUCC 125 MG/2 ML VIAL IV PUSH SCH ×2 (08:07→21:19)
--- NOTE | 2017-05-10 10:29 | HHI.CCPN ---
Subjective Remarks/Hospital Course Hospital Course: This is a 71-year-old patient with a history of COPD and atrial fibrillation who presented to the emergency department with a report of chest pain, but resolved on the way to the hospital. He has a history of CVA with residual left -sided weakness. In the emergency department he was significant short breath and was placed on BiPAP for respiratory distress. ABG despite BiPAP demonstrates a PCO2 of 88 and the patient continued to decline despite our attempts and he was intubated by the emergency department physician. When I evaluated the patient, the patient is artery recently intubated and sedated. No additional information is available from the patient. Chest x-ray demonstrates questionable right lung atelectasis versus possible early consolidation, possible viral/atypical pneumonia. Subjective: 2: no improvements. remains on vent. discussed with at length: apparently he has had significant functional decline since stroke in 12/2016, and has had multiple repeat hospitalizations, including SNF, LTAC, rehab level care, and has continued to decline. this likely represents a slow terminal decline in function. expressed my concern that he may not get back to functional status. goals remain aggressive for now. sputum growing staph. 2/: no meaningful improvements. more hypercarbic today: pco2 back in the 70s. sputum growing staph aureus, will narrow spectrum, but leave atypical coverage given COPD and clinical course that may suggest atypical pneumonia. palliative consulted. 2: no significant improvements. wbc still elevated, but may be steroid response. still altered with metabolic encephalopathy. weaning sedation. failing cpap trials. has required LTAC level care for slow wean before: may require again. 05/10: encephalopathy persists. most likely hypoactive delirium. failing CPAP trials for delirium and too somnolent to pass successfully. may require tracheostomy if goals remain aggressive. Objective Vital Signs Date Time Temp Pulse Resp B/P (MAP) Pulse Ox O2 Delivery O2 Flow Rate FiO2 05/10/17 07:29 96 60 05/10/17 06:00 126 05/10/17 06:00 19 97/59 (72) 05/10/17 04:00 99.1 05/06/17 12:00 Ventilator 05/06/17 08:11 4.00 Intake and Output 05/10/17 05/10/17 05/11/17 08:00 16:00 00:00 Intake Total 1908 ml 250 ml Output Total 250 ml Balance 1658 ml 250 ml Result Diagram: 05/10/17 0320 05/10/17 0320 Other Results Microbiology Date/Time Source Procedure Growth Status 05/07/17 12:28 Urine Catheterized Urine Legionella Antigen - Final PRESUMPTIVE NEGATIVE FOR LEGIONELLA P... Complete 05/07/17 12:28 Urine Catheterized Urine Streptococcus pneumoniae Antigen (M - Final PRESUMPTIVE NEGATIVE FOR STREPTOCOCCU... Complete Imaging Last Impressions Chest X-Ray 05/06/17920 Signed Impressions: Service Date/Time: Saturday, May 06, 2017 09:30 - CONCLUSION: 1. Interval intubation and placement of nasogastric tube. 2. Rotated exam demonstrating apparent locking of left costophrenic angle which could indicate an effusion. 3. Bibasilar opacity remains as well as discoid atelectasis in the right perihilar region. Calderon Moncada MD Objective Remarks GENERAL: Elderly male, lying in bed, intubated, sedated, critically ill HEENT: Normocephalic. Atraumatic. Pupils equal, round, reactive, conjugate. Mucous membranes are moist NECK: Trachea is midline. There is no JVD. CHEST: PRVC, FiO2 40%, SPO2 93%. Equal chest rise. Decreased breath sounds, elongated expiratory phase, moderate amount of expiratory wheezing CARDIOVASCULAR: Normal rate, irregularly irregular rhythm. A. fib by telemetry ABDOMEN: Soft, nontender, nondistended. No guarding. MUSCULOSKELETAL: Pulses 2+. No peripheral edema. NEUROLOGICAL: RASS -3. withdraws to pain. does not follow commands. A/P Assessment and Plan Assessment: 71-year-old male with COPD who presents with worsening shortness of breath leading to respiratory failure and requiring intubation mechanical ventilation. remains unable to separate from mechanical ventilation. long-term may not do well and this is recurrent respiratory failure (x 3 since December) . palliative care involved. no meaningful improvements. continue supportive care. daily SBTs. Acute Severe COPD Exacerbation Acute hypoxic and hypercarbic respiratory failure Healthcare Associated Pneumonia: Staph aureus Atrial fibrillation with rapid ventricular response Acute Hypoactive delirium Hypernatremia/Free Water Deficit - vent bundle - hob elevated - nebs - d/c mivf. - steroids - precedex - add modafinil for wakefulness - goal RASS -2. - daily SBTs. - diltiazem 30mg po q6h. s/p drip. - Rocephin x 7 days for staph aureus HCAP. azithro x 5 days given clinical suspicion for atypical pna on CXR. - continue PO free water, tube feeds. sodium downtrending appropriately. - SCDs, Lovenox - pepcid palliative care involved. Linden Neri MD May 10, 2017 10:29
[2017-05-10] MEDS: MODAFINIL 200 MG TAB PO SCH (12:08)
[2017-05-10] MEDS: DEXMEDETOMIDINE INJ 1,000 MCG in SODIUM CHLOR 0.9% 250 ML INJ 240 ML IV PRN ×2 (12:47→21:18)
[2017-05-10] MEDS: cefTRIAXone INJ 1,000 MG in SODIUM CHLORIDE 0.9% INJ 100 ML IV SCH (14:17)
[2017-05-11] VITALS (16 sets, daily range): BP systolic 94–126; BP diastolic 60–75; PULSE 76–115; RESP 19–25; TEMP 98.8–100.4; O2SAT 91–97
[2017-05-11] MEDS: RESP: ALBUTEROL 2.5 MG/IPRATROPIUM 0.5 MG NEB (SCH) INH ×7 (00:20→23:17)
[2017-05-11] MEDS: CHLORHEXIDINE GLUCONATE 2 % 1 PACK (2 CLOTHS)(taper/protocol) TOPICAL SCH (04:00)
[2017-05-11] MEDS ORDERED: PHARMACY ORDERED LAB ONE (04:45)
[2017-05-11 05:06] LABS: HEMATOCRIT 39.4 % (39.0-51.0); HEMOGLOBIN 12.9 GM/DL (13.0-17.0); MEAN CELL VOLUME 94.4 FL (80.0-100.0); MEAN CORPUSCULAR HEMOGLOBIN 30.8 PG (27.0-34.0); MEAN CORPUSCULAR HGB CONC 32.7 % (32.0-36.0); MEAN PLATELET VOLUME 10.1 FL (7.0-11.0); PLATELET COUNT 146 TH/MM3 (150-450); RED BLOOD COUNT 4.17 MIL/MM3 (4.50-5.90); WHITE BLOOD COUNT 16.9 TH/MM3 (4.0-11.0)
[2017-05-11 05:25] LABS: CALCIUM 8.2 MG/DL (8.5-10.1); CREATININE 0.76 MG/DL (0.60-1.30)
[2017-05-11] MEDS: FREE WATER G-TUBE SCH ×4 (06:00→18:00)
[2017-05-11] MEDS: DILTIAZEM HCL 30 MG TAB OG-TUBE SCH ×3 (06:40→18:43)
[2017-05-11] MEDS: DEXMEDETOMIDINE INJ 1,000 MCG in SODIUM CHLOR 0.9% 250 ML INJ 240 ML IV PRN ×3 (06:41→18:44)
--- NOTE | 2017-05-11 07:31 | HHI.CCPN ---
Subjective Remarks/Hospital Course Hospital Course: This is a 71-year-old patient with a history of COPD and atrial fibrillation who presented to the emergency department with a report of chest pain, but resolved on the way to the hospital. He has a history of CVA with residual left -sided weakness. In the emergency department he was significant short breath and was placed on BiPAP for respiratory distress. ABG despite BiPAP demonstrates a PCO2 of 88 and the patient continued to decline despite our attempts and he was intubated by the emergency department physician. When I evaluated the patient, the patient is artery recently intubated and sedated. No additional information is available from the patient. Chest x-ray demonstrates questionable right lung atelectasis versus possible early consolidation, possible viral/atypical pneumonia. Subjective: 2: no improvements. remains on vent. discussed with at length: apparently he has had significant functional decline since stroke in 12/2016, and has had multiple repeat hospitalizations, including SNF, LTAC, rehab level care, and has continued to decline. this likely represents a slow terminal decline in function. expressed my concern that he may not get back to functional status. goals remain aggressive for now. sputum growing staph. 2/2: no meaningful improvements. more hypercarbic today: pco2 back in the 70s. sputum growing staph aureus, will narrow spectrum, but leave atypical coverage given COPD and clinical course that may suggest atypical pneumonia. palliative consulted. 23: no significant improvements. wbc still elevated, but may be steroid response. still altered with metabolic encephalopathy. weaning sedation. failing cpap trials. has required LTAC level care for slow wean before: may require again. 2: encephalopathy persists. most likely hypoactive delirium. failing CPAP trials for delirium and too somnolent to pass successfully. may require tracheostomy if goals remain aggressive. 05/11 Patient remains intubated and on Precedex drip. Afebrile. Objective Vital Signs Date Time Temp Pulse Resp B/P (MAP) Pulse Ox O2 Delivery O2 Flow Rate FiO2 05/11/17 04:00 98.8 115 22 126/75 (92) 94 05/11/17 03:50 60 Result Diagram: 05/11/17 0349 05/11/17 0349 Other Results Laboratory Tests Test 05/11/17 03:49 White Blood Count 16.9 TH/MM3 Red Blood Count 4.17 MIL/MM3 Hemoglobin 12.9 GM/DL Hematocrit 39.4 % Mean Corpuscular Volume 94.4 FL Mean Corpuscular Hemoglobin 30.8 PG Mean Corpuscular Hemoglobin Concent 32.7 % Red Cell Distribution Width 14.0 % Platelet Count 146 TH/MM3 Mean Platelet Volume 10.1 FL Blood Urea Nitrogen 44 MG/DL Creatinine 0.76 MG/DL Random Glucose 214 MG/DL Calcium Level 8.2 MG/DL Sodium Level 141 MEQ/L Potassium Level 4.4 MEQ/L Chloride Level 106 MEQ/L Carbon Dioxide Level 28.0 MEQ/L Anion Gap 7 MEQ/L Estimat Glomerular Filtration Rate 101 ML/MIN Imaging Last Impressions Chest X-Ray 05/08/17 0000 Signed Impressions: Service Date/Time: Monday, May 08, 2017 07:15 - CONCLUSION: Small left pleural effusion and probable adjacent atelectasis. Delroy Van MD Objective Remarks GENERAL: Elderly male, lying in bed, intubated, sedated, critically ill HEENT: Normocephalic. Atraumatic. Pupils equal, round, reactive, conjugate. Mucous membranes are moist NECK: Trachea is midline. There is no JVD. CHEST: PRVC, FiO2 40%, SPO2 93%. Equal chest rise. Decreased breath sounds, elongated expiratory phase, moderate amount of expiratory wheezing CARDIOVASCULAR: Normal rate, irregularly irregular rhythm. A. fib by telemetry ABDOMEN: Soft, nontender, nondistended. No guarding. MUSCULOSKELETAL: Pulses 2+. No peripheral edema. NEUROLOGICAL: RASS -3. withdraws to pain. does not follow commands. A/P Assessment and Plan Assessment: 71-year-old male with COPD who presents with worsening shortness of breath leading to respiratory failure and requiring intubation mechanical ventilation. remains unable to separate from mechanical ventilation. long-term may not do well and this is recurrent respiratory failure (x 3 since December) . palliative care involved. no meaningful improvements. continue supportive care. daily SBTs. Neuro: On Precedex drip for sedation. Daily sedation vacation. Monitor neuro status. Pulm: Acute Severe COPD Exacerbation Acute hypoxic and hypercarbic respiratory failure Healthcare Associated Pneumonia: Staph aureus On PRVC/AV RR 18, TV 500, IT:1.0, PEEP: 8, FIO2 60%/ Decrease FIO2 50% Continue with vent support keep sat >92% Bronchodilators, ICU vent bundle. Daily SBT as [place]. Check ABG/CXR On Solumederol 60mg Q12 CV: Atrial fibrillation with rapid ventricular response - diltiazem 30mg po q6h. Monitor HR and BP keep MAP>65mmHg Check echo to eval LV function : Monitor renal function, I/O's, electrolytes replacement per protocol. Diurese with Lasix 40mg x1 GI: Continue tube feeds- Jevity 1.5 @60ml/hr. Decrease Free water 300ml Q12 On Pepcid for GI prophylaxis ID: Change abx ( Add Zosyn, Vanco d/c Rocephin, continue Zithromax) monitor for signs of infections ( Fever, WBC) Sputum: MRSA sensitive for Rocephin Heme: Monitor CBC Endo: Add SSI for glycemic control GI prophylaxis- Add Pepcid DVT prophylaxis- SCD, add Heparin SQ Check Doppler US LE r/o DVT Level 3 Juan Han MD May 11, 2017 07:31
[2017-05-11] MEDS ORDERED: GLUCAGON 1 MG/ML VIAL OTHER PRN (07:45)
[2017-05-11] MEDS ORDERED: DEXTROSE 50% IN WATER 50 ML VIAL(D50) IV PUSH PRN (07:45)
[2017-05-11] MEDS: INSULIN NovoLIN REGULAR SUPPLEMENTAL SCALE SQ SCH ×5 (08:00→23:57)
[2017-05-11] MEDS ORDERED: FUROSEMIDE 40 MG/4 ML VIAL IV PUSH ONE (09:00)
[2017-05-11] MEDS: MODAFINIL 200 MG TAB PO SCH (09:00)
--- NOTE | 2017-05-11 10:01 | RADRPT ---
EXAM DATE/TIME: 05/11/2017 07:57 [facility] COMPARISON: CHEST SINGLE AP, May 08, 2017, 7:15. INDICATIONS : Ventilator-dependent respiratory failure. MEDICAL HISTORY : Cardiovascular disease. Congestive heart failure. Hypertension. SURGICAL HISTORY : None. ENCOUNTER: Subsequent ACUITY: 3 days PAIN SCORE: Non-responsive. LOCATION: Bilateral chest FINDINGS: The endotracheal tube remains in good position above the stephanie. A nasogastric tube is noted below th e diaphragm. The heart is enlarged. Small left pleural effusion is noted. Scattered bibasilar atelect asis and/or infiltrates are noted. CONCLUSION: Scattered bibasilar atelectasis and/or infiltrates. Small left pleural effusion. Card iomegaly. Roque Hodge MD on May 11, 2017 at 9:58 Board Certified Radiologist. This report was verified electronically.
[2017-05-11] MEDS: FAMOTIDINE 20 MG/2 ML VIAL IV PUSH SCH ×2 (10:25→20:13)
[2017-05-11] MEDS: methylPREDNISolone SOD SUCC 125 MG/2 ML VIAL IV PUSH SCH ×2 (10:25→20:13)
[2017-05-11] MEDS: CHLORHEXIDINE 0.12% (ORAL KIT) 15 ML CUP MT SCH ×2 (10:27→20:12)
[2017-05-11] MEDS: AZITHROMYCIN INJ 500 MG in SODIUM CHLOR 0.9% 250 ML INJ 250 ML IV SCH (10:27)
--- NOTE | 2017-05-11 11:19 | RADRPT ---
EXAM DATE/TIME: 05/11/2017 10:33 [facility] COMPARISON: No previous studies available for comparison. INDICATIONS : Bilateral leg swelling. MEDICAL HISTORY : Myocardial infarction. Congestive heart failure. Hypercholesterolemia. CVA. Coronary artery disease. Hyperlipidemia. HTN. DVT. Irregular heartbeat. Asthma. COPD. Pneumonia. Sleep apnea. GERD. Renal fail ure. Renal calculi. Anticoagulant therapy, Heparin. SURGICAL HISTORY : Tonsillectomy.Coronary artery stent. Cardiac cath. ENCOUNTER: Initial ACUITY: 1 day PAIN SCORE: Non-responsive LOCATION: Bilateral leg. TECHNIQUE: Venous ultrasound of the left and right leg was performed from the inguinal ligament to the proximal calf. Real-time, color Doppler and spectral tracing, compression and augmentation techniques were us ed. FINDINGS: RIGHT LEG: There is normal compressibility of the deep venous system from the inguinal region to the proximal ca lf. No echogenic clot is seen in the lumen of the common femoral, femoral, popliteal, and posterior tibial veins. There is a normal response of the venous system to proximal and distal augmentation an d respiration. LEFT LEG: Occlusive thrombus is noted within the left proximal deep femoral vein and nonocclusive thrombus is n oted within the left common femoral vein and greater saphenous origin as well as the superficial femo ral and deep femoral bifurcation. No thrombus is noted within the left mid and distal superficial fem oral, popliteal, peroneal and posterior tibial veins. CONCLUSION: 1. Occlusive thrombus within the left proximal deep femoral vein as well as nonocclusive thrombus wit hin the left common femoral, greater saphenous origin and bifurcation of the superficial femoral and deep femoral veins. 2. No deep venous thrombosis within the right lower extremity. Roque Hodge MD on May 11, 2017 at 11:14 Board Certified Radiologist. This report was verified electronically.
[2017-05-11] MEDS: HEPARIN-D5W 25,000 U/250 ML 250 ML IV PRN (14:20)
[2017-05-11 14:44] LABS: INTERNATIONAL NORMALIZED RATIO 1.1 RATIO; PROTHROMBIN TIME - PATIENT 11.1 SEC (9.8-11.6)
[2017-05-11] MEDS: cefTRIAXone INJ 1,000 MG in SODIUM CHLORIDE 0.9% INJ 100 ML IV SCH (15:12)
--- NOTE | 2017-05-11 15:27 | HHI.HCPN ---
Reason for visit a. To assist with evaluation and management of symptoms including: Shortness of breath, debility b. To assist medical decision maker(s) with: better understanding of current medical conditions; weighing benefits/burdens of medical treatment options; making medical treatment decisions. Subjective/Interval History Patient seen and examined in his room in [facility]. Patient remains intubated on mechanical ventilation. Patient is on Precedex infusion. Patient is afebrile. HR low 100s. O2 saturation in the low 90s on 100% FIO2. Laboratory workup revealing WBC 16.9 gradually trending up- probably from steroid response. Patient failed CPAP trials over the weekend and today has required increase of FIO2 from 60% to 100% due to desaturation. Chest x-ray revealed scattered bibasilar atelectasis and/or infiltrates and a small left pleural effusion. Ultrasound to the left lower extremity revealed an occlusive thrombus within the left proximal deep femoral vein as well as nonocclusive thrombus within the left common femoral, greater saphenous origin and bifurcation of the superficial femoral and deep femoral veins. No DVT to RLE. Patient started on heparin infusion today. CT Angiogram ordered to rule out pulmonary embolus. Telephone conversation with patient`s spouse. Updated on patient`s current medical status, recent diagnostic tests and patient`s decline- requiring 100% FIO2. Patient having difficulty with understanding conversation over the phone. states that she is not able to come and see patient because she has a respiratory infection. Patient`s appreciative of update. Contact information provided. Patients` has not changed goals of care at this time. . Family/friend interactions Telephone conversation with patient`s . . Advance Directives Living Will: Copy in medical record Health Care Surrogate: Copy in medical record Advance Directive Specifics Date completed: 12/07/2002 . Health Care Surrogate(s): Health Care Surrogate- Spouse- Geneva Wittter [phone] 1st and 2nd alternate respectively. Arsenio Stone (son) [phone] Zenia Poon (daughter) [phone] . Documented care wishes: See scanned copy on EMR . Objective Vital Signs Date Time Temp Pulse Resp B/P (MAP) Pulse Ox O2 Delivery O2 Flow Rate FiO2 05/11/17 11:12 91 100 05/11/17 08:40 92 60 05/11/17 06:00 104 05/11/17 04:00 98.8 115 22 126/75 (92) 94 05/11/17 04:00 60 05/11/17 04:00 115 05/11/17 03:50 94 60 05/11/17 02:00 77 05/11/17 00:00 60 05/11/17 00:00 77 05/11/17 00:00 97 60 05/11/17 00:00 98.8 104 22 112/64 (80) 95 05/10/17 22:00 77 05/10/17 20:25 98 60 05/10/17 20:00 98.2 85 18 100/63 (75) 97 05/10/17 20:00 77 05/10/17 20:00 60 05/10/17 18:00 74 05/10/17 17:00 104 15 138/75 (96) 96 05/10/17 16:33 96 60 05/10/17 16:30 75 15 124/72 (89) 96 05/10/17 16:03 85 16 152/75 (100) 95 05/10/17 16:00 106 05/10/17 16:00 98.6 106 34 127/83 (98) 96 05/10/17 16:00 60 05/10/17 15:30 20 126/76 (93) 95 05/10/17 15:00 68 18 141/68 (92) 96 Intake & Output 05/11/17 05/11/17 07:00 19:00 Intake Total 1095 ml Output Total 400 ml Balance 695 ml Intake IV Total 418 ml Tube Feeding 677 ml Output Urine Total 400 ml Physical Exam CONSTITUTIONAL/GENERAL: This is an adequately nourished patient, in no apparent distress. TUBES/LINES/DRAINS: ETT, OGT, PIV, FC SKIN: No jaundice, rashes, or lesions. Ecchymoses on upper extremities. No wounds seen anteriorly. Skin temperature cool to touch. Not diaphoretic. HEAD: Atraumatic. Normocephalic. EYES: Pupils equal and round and reactive.No scleral icterus. No injection or drainage. Fundi not examined. ENT: Nose without bleeding or purulent drainage. Moist oral mucosa NECK: Trachea midline. Supple, nontender. CARDIOVASCULAR: Regular rate and rhythm without murmurs, gallops, or rubs. No JVD. Peripheral pulses symmetric. RESPIRATORY/CHEST: Symmetric, unlabored respirations. Breath sounds equal bilaterally, use of abdominal muscles. Rhonchi to auscultation. GASTROINTESTINAL: Abdomen soft, non-tender. No guarding. Bowel sounds present. GENITOURINARY: Without palpable bladder distension. Weldon catheter in place. MUSCULOSKELETAL: Extremities without clubbing, cyanosis, or edema. No joint tenderness or effusion noted. No mottling or clubbing. NEUROLOGICAL: Intubated, unresponsive on a precedex infusion. PSYCHIATRIC: Unable to assess, intubated on mechanical ventilation and precedex infusion. . Diagnostic Tests Laboratory Laboratory Tests Test 05/08/17 16:30 05/08/17 20:58 05/09/17 08:30 05/10/17 03:20 Urine Color YELLOW (YELLW/STRAW) Urine Turbidity HAZY (CLEAR) Urine pH 6.0 (5.0-8.5) Urine Specific [place] 1.033 (1.002-1.035) Urine Protein 30 mg/dL (NEG-TRACE) Urine Glucose (UA) NEG mg/dL (NEG) Urine Ketones TRACE mg/dL (NEG) Urine Occult Blood NEG (NEG) Urine Nitrite NEG (NEG) Urine Bilirubin NEG (NEG) Urine Urobilinogen LESS THAN 2.0 MG/DL (LESS Urine Leukocyte Esterase TRACE (NEG) Urine WBC 2 /hpf (0-5) Urine Squamous Epithelial Cells <1 /hpf (0-5) Urine Amorphous Sediment RARE Microscopic Urinalysis Comment CATH-CULT NOT IND Nasal Screen MRSA (PCR) MRSA NOT DETECTED (NOT White Blood Count 13.5 TH/MM3 (4.0-11.0) 14.3 TH/MM3 (4.0-11.0) Red Blood Count 4.09 MIL/MM3 (4.50-5.90) 4.28 MIL/MM3 (4.50-5.90) Hemoglobin 12.7 GM/DL (13.0-17.0) 13.0 GM/DL (13.0-17.0) Hematocrit 39.3 % (39.0-51.0) 40.7 % (39.0-51.0) Mean Corpuscular Volume 96.1 FL (80.0-100.0) 95.0 FL (80.0-100.0) Mean Corpuscular Hemoglobin 31.0 PG (27.0-34.0) 30.3 PG (27.0-34.0) Mean Corpuscular Hemoglobin Concent 32.2 % (32.0-36.0) 31.9 % (32.0-36.0) Red Cell Distribution Width 14.3 % (11.6-17.2) 13.7 % (11.6-17.2) Platelet Count 200 TH/MM3 (150-450) 167 TH/MM3 (150-450) Mean Platelet Volume 8.7 FL (7.0-11.0) 9.3 FL (7.0-11.0) Blood Urea Nitrogen 46 MG/DL (7-18) 47 MG/DL (7-18) Creatinine 0.97 MG/DL (0.60-1.30) 0.84 MG/DL (0.60-1.30) Random Glucose 227 MG/DL (74-106) 170 MG/DL (74-106) Calcium Level 8.8 MG/DL (8.5-10.1) 8.6 MG/DL (8.5-10.1) Sodium Level 147 MEQ/L (136-145) 144 MEQ/L (136-145) Potassium Level 3.7 MEQ/L (3.5-5.1) 4.4 MEQ/L (3.5-5.1) Chloride Level 112 MEQ/L (98-107) 109 MEQ/L (98-107) Carbon Dioxide Level 29.8 MEQ/L (21.0-32.0) 30.1 MEQ/L (21.0-32.0) Anion Gap 5 MEQ/L (5-15) 5 MEQ/L (5-15) Estimat Glomerular Filtration Rate 76 ML/MIN (>89) 90 ML/MIN (>89) Test 05/11/17 03:49 05/11/17 09:55 05/11/17 14:13 White Blood Count 16.9 TH/MM3 (4.0-11.0) Red Blood Count 4.17 MIL/MM3 (4.50-5.90) Hemoglobin 12.9 GM/DL (13.0-17.0) Hematocrit 39.4 % (39.0-51.0) Mean Corpuscular Volume 94.4 FL (80.0-100.0) Mean Corpuscular Hemoglobin 30.8 PG (27.0-34.0) Mean Corpuscular Hemoglobin Concent 32.7 % (32.0-36.0) Red Cell Distribution Width 14.0 % (11.6-17.2) Platelet Count 146 TH/MM3 (150-450) Mean Platelet Volume 10.1 FL (7.0-11.0) Blood Urea Nitrogen 44 MG/DL (7-18) Creatinine 0.76 MG/DL (0.60-1.30) Random Glucose 214 MG/DL (74-106) Calcium Level 8.2 MG/DL (8.5-10.1) Sodium Level 141 MEQ/L (136-145) Potassium Level 4.4 MEQ/L (3.5-5.1) Chloride Level 106 MEQ/L (98-107) Carbon Dioxide Level 28.0 MEQ/L (21.0-32.0) Anion Gap 7 MEQ/L (5-15) Estimat Glomerular Filtration Rate 101 ML/MIN (>89) Blood Gas Puncture Site RT RADIAL Blood Gas Patient Temperature 98.6 Blood Gas HCO3 27 mmol/L (22-26) Blood Gas Base Excess 2.1 mmol/L (-2-2) Blood Gas Oxygen Saturation 90 % (90-100) Arterial Blood pH 7.34 (7.380-7.420) Arterial Blood Partial Pressure CO2 52 mmHg (38-42) Arterial Blood Partial Pressure O2 63 mmHg (61-120) Arterial Blood Oxygen Content 15.7 Vol % (12.0-20.0) Arterial Blood Carboxyhemoglobin 0.7 % (0-4) Arterial Blood Methemoglobin 1.2 % (0-2) Blood Gas Hemoglobin 12.5 G/DL (12.0-16.0) Oxygen Delivery Device VENTILATOR Blood Gas Ventilator Setting Blood Gas Inspired Oxygen 100 % Result Diagram: 05/11/17 0349 05/11/17 0349 Imaging Last 48 hours Impressions Lower Extremity Ultrasound 05/11/17 0000 Signed Impressions: Service Date/Time: Thursday, May 11, 2017 10:33 - CONCLUSION: 1. Occlusive thrombus within the left proximal deep femoral vein as well as nonocclusive thrombus within the left common femoral, greater saphenous origin and bifurcation of the superficial femoral and deep femoral veins. 2. No deep venous thrombosis within the right lower extremity. Roque Hodge MD Chest X-Ray 05/11/17 0000 Signed Impressions: Service Date/Time: Thursday, May 11, 2017 07:57 - CONCLUSION: Scattered bibasilar atelectasis and/or infiltrates. Small left pleural effusion. Cardiomegaly. Roque Hodge MD Procedures 05/06/2017- Intubation . Assessment and Plan Disease Oriented Problem List: (1) COPD with acute exacerbation (2) Healthcare-associated pneumonia (3) Atrial fibrillation with RVR (4) Hypernatremia Symptom Scale: (1) Shortness of breath 0-10 Scale: Unable to quantify Comment: Hx of COPD. Currently being treated for pneumonia. On Ventilator. . (2) Debility 0-10 Scale: Unable to quantify Pertinent Non-Medical Issues Psychosocial: Originally from [place], has 4 children 3 sons one daughter from a previous marriage. to current Geneva Stone Spiritual: Taoist but not anglican Legal:Geneva Stone [phone] and primary healthcare surrogate 1st and 2nd alternate repectively. Arsenio Stone (son) [phone] Zenia Poon (daughter) [phone] Ethical issues impacting care: None Important Contacts Geneva Stone [phone] 1st and 2nd alternate repectively. Arsenio Stone (son) [phone] Zenia Poon (daughter) [phone] Prognosis Prognosis is guarded for current hospitalization, poor overall. History of debility and gradual decline following stroke in July 2016. History of recurrent aspiration pneumonia, COPD, confusion, extended nursing/ rehabilitation facility stay. If patient were to survive current hospitalization, at risk of continuing rehospitalization infection, wounds, and challenges to care secondary to agitation. . Code Status: No Code Plan PLAN: Legal decision maker: Patient is currently intubated on mechanical ventilation and is not able to make his own medical decisions. It is unknown at this time if he will be able to regain capacity to make medical decisions. Patient's health care surrogate is his spouse, Jesusita Stone and his Ist alternate HCS is Arsenio Chase (son) and 2nd alternate HCS is Zenia Poon ( daughter). Goals: Aggressive short of no code CODE STATUS: No code- DNR SYMPTOMS: * Shortness of breath: Multifactorial. Patient has history of COPD. Came in with complaints of shortness of breath requiring intubation. Chest x-ray revealing scattered bibasilar atelectasis/infiltrates and small left pleural effusion. Patient is currently requiring 100% FiO2 and only saturating low 90s. CT angiogram ordered to rule out PE. On Duonebs and antibiotics. No recommendations. * Debility: Progressive. Patient has continued to decline since her last hospitalization in July, for a stroke. Patient has had various stays at rehabilitation and nursing facilities. Currently intubated. May benefit from a Physical therapy consultation if goals remain aggressive. Patient will most likely not be able to participate due to metabolic encephalopathy. Palliative care will continue to follow the patient during hospital course as condition evolves, to assist patient/decision-maker with understanding of their medical conditions, weighing benefits/burdens of treatment options, for clarification of goals of treatment. Additionally will assist with any symptoms of palliative concern. Attestation To help prompt me to consider important information that might be impacting today's encounter and assessment, information from prior notes written by myself or my colleagues may have been "brought forward" into today's note. My signature on this note, however, is an attestation that I personally performed the exam, history, and/or decision-making noted today, and, unless otherwise indicated, the interactions with patient, family, and staff as well as the review of records all occurred today. I also attest that the listed assessment and stated plan reflect my best clinical judgment today based on the combination of historical information, prior notes, and today's exam/ interactions. When time spent is documented, it refers only to time spent today by the signer, or if indicated, combined time spent today by collaborating physician/nurse practitioner. Dennys Nicole May 11, 2017 15:27
--- NOTE | 2017-05-11 17:14 | RADRPT ---
EXAM DATE/TIME: 05/11/2017 16:55 [facility] COMPARISON: No previous studies available for comparison. INDICATIONS : Pneumonia. Evaluate for emboli. IV CONTRAST: 60 cc Omnipaque 350 (iohexol) IV RADIATION DOSE: 24.80 CTDIvol (mGy) MEDICAL HISTORY : Cardiovascular disease. Cerebrovascular disease. Hypertension.DVT SURGICAL HISTORY : None. ENCOUNTER: Initial ACUITY: 1 day PAIN SCALE: Non-responsive LOCATION: chest TECHNIQUE: Volumetric scanning of the chest was performed using a pulmonary embolism protocol MIP images were re constructed. Using automated exposure control and adjustment of the mA and/or kV according to patien t size, radiation dose was kept as low as reasonably achievable to obtain optimal diagnostic quality images. DICOM format image data is available electronically for review and comparison. Follow-up recommendations for detected pulmonary nodules are based at a minimum on nodule size and pa tient risk factors according to Fleischner Society Guidelines. FINDINGS: Bibasilar consolidative changes evident. Trace pleural effusions are noted. There is no evidence for central pulmonary emboli Cardiomegaly without pericardial effusion There is no adenopathy Portion of the liver spleen identified are free of focal defects. Review of bone windows is on degenerative changes. CONCLUSION: Significant bibasilar consolidative changes or trace pleural effusion. Negative for central pulmonary emboli. Enoch Phillips MD FACR on May 11, 2017 at 17:11 Board Certified Radiologist. This report was verified electronically.
[2017-05-11] MEDS ORDERED: IOHEXOL 350 MG/ML 10 ML VIAL (for RAD DIAG) IVCONTRAST ONE (17:32)
[2017-05-11] MEDS ORDERED: Vancomycin Consult Pharmacy 1 EA OTHER SCH (17:45)
[2017-05-11] MEDS ORDERED: HEPARIN SODIUM - SQ 10,000 UNITS/ML VIAL SQ SCH (18:00)
[2017-05-11] MEDS: PIPERACIL-TAZO 4.5 GM PREMIX 100 ML IV SCH (20:12)
[2017-05-11] MEDS: VANCOMYCIN INJ 1,000 MG in SODIUM CHLOR 0.9% 250 ML INJ 250 ML IV SCH (21:00)
[2017-05-12] VITALS (32 sets, daily range): BP systolic 95–173; BP diastolic 59–110; PULSE 73–153; RESP 17–28; TEMP 98.8–100.8; O2SAT 93–98
[2017-05-12] MEDS: PIPERACIL-TAZO 4.5 GM PREMIX 100 ML IV SCH ×4 (01:24→21:27)
[2017-05-12] MEDS: DEXMEDETOMIDINE INJ 1,000 MCG in SODIUM CHLOR 0.9% 250 ML INJ 240 ML IV PRN ×2 (02:33→10:56)
[2017-05-12] MEDS: HEPARIN-D5W 25,000 U/250 ML 250 ML IV PRN ×2 (02:38→23:51)
[2017-05-12] MEDS: RESP: ALBUTEROL 2.5 MG/IPRATROPIUM 0.5 MG NEB (SCH) INH ×6 (03:14→23:25)
[2017-05-12] MEDS: CHLORHEXIDINE GLUCONATE 2 % 1 PACK (2 CLOTHS)(taper/protocol) TOPICAL SCH (04:00)
[2017-05-12] MEDS: INSULIN NovoLIN REGULAR SUPPLEMENTAL SCALE SQ SCH ×5 (04:00→20:00)
[2017-05-12] MEDS: VANCOMYCIN INJ 1,000 MG in SODIUM CHLOR 0.9% 250 ML INJ 250 ML IV SCH (05:00)
[2017-05-12] MEDS: FREE WATER G-TUBE SCH ×5 (06:00→23:04)
[2017-05-12] MEDS: DILTIAZEM HCL 30 MG TAB OG-TUBE SCH ×2 (06:41→17:09)
--- NOTE | 2017-05-12 07:36 | HHI.CCPN ---
Subjective Remarks/Hospital Course Hospital Course: This is a 71-year-old patient with a history of COPD and atrial fibrillation who presented to the emergency department with a report of chest pain, but resolved on the way to the hospital. He has a history of CVA with residual left -sided weakness. In the emergency department he was significant short breath and was placed on BiPAP for respiratory distress. ABG despite BiPAP demonstrates a PCO2 of 88 and the patient continued to decline despite our attempts and he was intubated by the emergency department physician. When I evaluated the patient, the patient is artery recently intubated and sedated. No additional information is available from the patient. Chest x-ray demonstrates questionable right lung atelectasis versus possible early consolidation, possible viral/atypical pneumonia. Subjective: 2: no improvements. remains on vent. discussed with at length: apparently he has had significant functional decline since stroke in 12/2016, and has had multiple repeat hospitalizations, including SNF, LTAC, rehab level care, and has continued to decline. this likely represents a slow terminal decline in function. expressed my concern that he may not get back to functional status. goals remain aggressive for now. sputum growing staph. 2/: no meaningful improvements. more hypercarbic today: pco2 back in the 70s. sputum growing staph aureus, will narrow spectrum, but leave atypical coverage given COPD and clinical course that may suggest atypical pneumonia. palliative consulted. 2: no significant improvements. wbc still elevated, but may be steroid response. still altered with metabolic encephalopathy. weaning sedation. failing cpap trials. has required LTAC level care for slow wean before: may require again. 05/10: encephalopathy persists. most likely hypoactive delirium. failing CPAP trials for delirium and too somnolent to pass successfully. may require tracheostomy if goals remain aggressive. 05/11 Patient remains intubated and on Precedex drip. Afebrile. 05/12 Patient remains intubated and sedated. On Heparin drip. T:99.7 last night. Objective Vital Signs Date Time Temp Pulse Resp B/P (MAP) Pulse Ox O2 Delivery O2 Flow Rate FiO2 05/12/17 06:00 81 05/12/17 04:18 97 100 05/12/17 04:00 99.6 21 95/63 (74) Intake and Output 05/12/17 05/12/17 05/13/17 08:00 16:00 00:00 Intake Total 2096 ml Output Total 500 ml Balance 1596 ml Result Diagram: 05/11/17 0349 05/11/17 0349 Other Results Laboratory Tests Test 05/11/17 09:55 05/11/17 14:13 05/11/17 20:08 Blood Gas Puncture Site RT RADIAL Blood Gas Patient Temperature 98.6 Blood Gas HCO3 27 mmol/L Blood Gas Base Excess 2.1 mmol/L Blood Gas Oxygen Saturation 90 % Arterial Blood pH 7.34 Arterial Blood Partial Pressure CO2 52 mmHg Arterial Blood Partial Pressure O2 63 mmHg Arterial Blood Oxygen Content 15.7 Vol % Arterial Blood Carboxyhemoglobin 0.7 % Arterial Blood Methemoglobin 1.2 % Blood Gas Hemoglobin 12.5 G/DL Oxygen Delivery Device VENTILATOR Blood Gas Ventilator Setting Blood Gas Inspired Oxygen 100 % Prothrombin Time 11.1 SEC Prothromb Time International Ratio 1.1 RATIO Activated Partial Thromboplast Time 21.9 SEC 62.8 SEC Imaging Last Impressions Lower Extremity Ultrasound 05/11/17 0000 Signed Impressions: Service Date/Time: Thursday, May 11, 2017 10:33 - CONCLUSION: 1. Occlusive thrombus within the left proximal deep femoral vein as well as nonocclusive thrombus within the left common femoral, greater saphenous origin and bifurcation of the superficial femoral and deep femoral veins. 2. No deep venous thrombosis within the right lower extremity. Roque Hodge MD Chest X-Ray 05/11/17 0000 Signed Impressions: Service Date/Time: Thursday, May 11, 2017 07:57 - CONCLUSION: Scattered bibasilar atelectasis and/or infiltrates. Small left pleural effusion. Cardiomegaly. Roque Hodge MD CT Angiography 05/11/17 0000 Signed Impressions: Service Date/Time: Thursday, May 11, 2017 16:55 - CONCLUSION: Significant bibasilar consolidative changes or trace pleural effusion. Negative for central pulmonary emboli. Enoch Phillips MD FACR Objective Remarks GENERAL: Patient is 71 yo intubated and sedated SKIN: Warm and dry. HEAD: Normocephalic. EYES: No scleral icterus. No injection or drainage. NECK: Supple, trachea midline. No JVD or lymphadenopathy. CARDIOVASCULAR: Regular rate and rhythm without murmurs, gallops, or rubs. RESPIRATORY: Breath sounds equal bilaterally. No accessory muscle use. GASTROINTESTINAL: Abdomen soft, non-tender, nondistended. MUSCULOSKELETAL: No cyanosis, +edema. Neuro: Intubated A/P Assessment and Plan Neuro: On Precedex drip for sedation. Daily sedation vacation. Monitor neuro status. Pulm: Acute Severe COPD Exacerbation Acute hypoxic and hypercarbic respiratory failure Healthcare Associated Pneumonia: Staph aureus On PRVC/AV RR 18, TV 500, IT:1.0, PEEP:12 FIO2 60%/ Decrease FIO2 as kashmir Continue with vent support keep sat >92% Bronchodilators, ICU vent bundle. Daily SBT as kashmir when his oxygenation is better On Solumederol 60mg Q12 CTA chest yesterday showed no PE, consolidative changes at bases CV: Atrial fibrillation with rapid ventricular response - diltiazem 30mg po q6h. Monitor HR and BP keep MAP>65mmHg For 2Decho to eval LV function : Monitor renal function, I/O's, electrolytes replacement per protocol. Diurese with Lasix 40mg IV Q12 GI: Continue tube feeds- Jevity 1.5 @60ml/hr, Free water 300ml Q12 On Pepcid for GI prophylaxis ID: Continue abx ( Zosyn, Vanco , Zithromax) monitor for signs of infections ( Fever , WBC) Sputum: MRSA sensitive for Rocephin, recheck sputum cx Check C-diff PCR Strep pneumonia and Legionella urianry Ag negative on 05/07 Nasal washing negative for Flu on 05/06 Heme: Monitor CBC Endo: SSI for glycemic control GI prophylaxis- Add Pepcid DVT prophylaxis- SCD, Heparin drip Doppler US LE :Occlusive thrombus within the left proximal deep femoral vein as well as nonocclusive thrombus within the left common femoral, greater saphenous origin and bifurcation of the superficial femoral and deep femoral veins. No DVT within the right lower extremity. Follow up on labs CCT 30 mins Juan Han MD May 12, 2017 07:36
[2017-05-12] MEDS: FAMOTIDINE 20 MG/2 ML VIAL IV PUSH SCH ×2 (09:04→21:27)
[2017-05-12] MEDS: methylPREDNISolone SOD SUCC 125 MG/2 ML VIAL IV PUSH SCH ×2 (09:04→21:27)
[2017-05-12] MEDS: CHLORHEXIDINE 0.12% (ORAL KIT) 15 ML CUP MT SCH ×2 (09:26→21:27)
[2017-05-12] MEDS: MODAFINIL 200 MG TAB PO SCH (09:27)
[2017-05-12 11:28] LABS: AUTOMATED NEUTROPHIL # 32.3 TH/MM3 (1.8-7.7); BASOPHIL # 0.3 TH/MM3 (0-0.2); HEMOGLOBIN 14.8 GM/DL (13.0-17.0); LYMPH % 1.1 % (9.0-44.0); LYMPHOCYTE # 0.4 TH/MM3 (1.0-4.8); MEAN CORPUSCULAR HEMOGLOBIN 31.3 PG (27.0-34.0); MEAN CORPUSCULAR HGB CONC 33.6 % (32.0-36.0); MEAN PLATELET VOLUME 10.5 FL (7.0-11.0); MONO % 1.5 % (0.0-8.0); MONOCYTE # 0.5 TH/MM3 (0-0.9); NEUT % 96.4 % (16.0-70.0); PLATELET COUNT 141 TH/MM3 (150-450); RED BLOOD COUNT 4.73 MIL/MM3 (4.50-5.90); WHITE BLOOD COUNT 33.5 TH/MM3 (4.0-11.0)
[2017-05-12 11:44] LABS: BICARBONATE 27.5 MEQ/L (21.0-32.0); CREATININE 0.66 MG/DL (0.60-1.30); MAGNESIUM 2.6 MG/DL (1.5-2.5); PHOSPHORUS 1.6 MG/DL (2.5-4.9)
[2017-05-12 12:00] LABS: BANDS 21 % (0-6); LYMPHOCYTES 1 % (9-44); MONOCYTES 2 % (0-8); NEUTROPHIL # MANUAL DIFF 32.5 TH/MM3 (1.8-7.7); POLYS (SEG NEUTROPHILS) 76 % (16-70)
[2017-05-12] MEDS: POTASSIUM PHOSPHATE MONOBASIC 500 MG TAB PO PRN ×2 (13:01→17:08)
--- NOTE | 2017-05-12 16:00 | HHI.HCPN ---
Reason for visit a. To assist with evaluation and management of symptoms including: Shortness of breath, debility b. To assist medical decision maker(s) with: better understanding of current medical conditions; weighing benefits/burdens of medical treatment options; making medical treatment decisions. Subjective/Interval History Patient [place] and [place] [facility] Patient remains intubated on mechanical ventilation. Patient is on Precedex. Low grade fever. HR 70-80s FIO2 weaned to 100% to 55%, oxygen saturations remained stable in the high 90s. Laboratory workup revealing WBC increased from 16.9 to 33.5 today. Sputum culture pending. 05/11/17: Chest x-ray revealed scattered bibasilar atelectasis and/or infiltrates and a small left pleural effusion. Ultrasound to the left lower extremity revealed an occlusive thrombus within the left proximal deep femoral vein as well as nonocclusive thrombus within the left common femoral, greater saphenous origin and bifurcation of the superficial femoral and deep femoral veins. No DVT to RLE. CT Angiogram showed bibasilar consolidative changes or trace pleural effusion; negative for central pulmonary emboli. Patient's and son were at bedside. Provided an update on the patient's clinical condition. They verbalize understanding that the patient remains critically ill. Ms. Sotne remains cautiously hopeful stating, "He was supposed to a few times before but he always came through." Patient's son responded to his mother stating, "Yea - but his is a lot weaker now than he was in the past. This might be different" Both are in agreement that the goals should remain aggressive up to the point of cardiopulmonary resuscitation; they state they have had multiple conversations with the patient over the years and know "without a doubt" that the patient would not want to proceed with trach and PEG. The patient's son had some questions about what would happen if his father was unable to wean from the ventilator. We briefly discussed passionate withdrawal artificial life support; hospice was introduced. Advance Directives Living Will: Copy in medical record Health Care Surrogate: Copy in medical record Advance Directive Specifics Date completed: 12/07/2002 . Health Care Surrogate(s): Health Care Surrogate- Spouse- Geneva Stone [phone] 1st and 2nd alternate respectively. Arsenio Stone (son) [phone] Zenia Diazoral (daughter) [phone] . Documented care wishes: See scanned copy on EMR . Objective Vital Signs Date Time Temp Pulse Resp B/P (MAP) Pulse Ox O2 Delivery O2 Flow Rate FiO2 05/12/17 12:00 96 55 05/12/17 08:37 96 55 05/12/17 06:00 81 05/12/17 04:18 97 100 05/12/17 04:00 99.6 83 21 95/63 (74) 97 05/12/17 04:00 83 05/12/17 04:00 100 05/12/17 02:00 87 05/12/17 01:09 97 100 05/12/17 00:00 99.2 73 19 100/59 (73) 98 05/12/17 00:00 100 05/12/17 00:00 73 05/11/17 22:06 93 100 05/11/17 22:00 82 05/11/17 20:00 99.7 76 22 94/60 (71) 93 05/11/17 20:00 76 05/11/17 20:00 100 05/11/17 19:40 91 100 05/11/17 17:00 92 100 05/11/17 16:00 99.4 77 24 113/69 (84) 95 05/11/17 16:00 100 05/11/17 15:52 96 50 Intake & Output 05/12/17 05/12/17 07:00 19:00 Intake Total 2446 ml Output Total 500 ml Balance 1946 ml Intake IV Total 1272 ml Tube Feeding 574 ml Other 600 ml Output Urine Total 500 ml Tube Feeding Residual Discard 0 ml # Bowel Movements 0 Physical Exam CONSTITUTIONAL/GENERAL: This is a frail, elderly male patient who remains intubated on mechanical ventilation. TUBES/LINES/DRAINS: ETT, OGT, PIV, FC SKIN: Hand are swollen and weeping.. Ecchymoses on upper extremities. Skin temperature cool to touch. Not diaphoretic. HEAD: Atraumatic. Normocephalic. EYES: Pupils equal, round, sluggish. No scleral icterus. No injection or drainage. Fundi not examined. ENT: Sedated. Nose without bleeding or purulent drainage. NECK: Trachea midline. Supple, nontender. CARDIOVASCULAR: Regular rate and rhythm without murmurs, gallops, or rubs. No JVD. Peripheral pulses symmetric. RESPIRATORY/CHEST: Intubated on mechanical ventilation. Rhonchi to auscultation. GASTROINTESTINAL: Abdomen soft, non-tender. No guarding. Bowel sounds present. GENITOURINARY: Without palpable bladder distension. Weldon catheter in place draining tea-colored urine MUSCULOSKELETAL: Extremities without clubbing or cyanosis. + Edema. + Mottling. NEUROLOGICAL: Intubated, unresponsive on a Precedex infusion. PSYCHIATRIC: Unable to assess, intubated on mechanical ventilation and Precedex infusion. . Diagnostic Tests Laboratory Laboratory Tests Test 05/10/17 03:20 05/11/17 03:49 05/11/17 09:55 05/11/17 14:13 White Blood Count 14.3 TH/MM3 (4.0-11.0) 16.9 TH/MM3 (4.0-11.0) Red Blood Count 4.28 MIL/MM3 (4.50-5.90) 4.17 MIL/MM3 (4.50-5.90) Hemoglobin 13.0 GM/DL (13.0-17.0) 12.9 GM/DL (13.0-17.0) Hematocrit 40.7 % (39.0-51.0) 39.4 % (39.0-51.0) Mean Corpuscular Volume 95.0 FL (80.0-100.0) 94.4 FL (80.0-100.0) Mean Corpuscular Hemoglobin 30.3 PG (27.0-34.0) 30.8 PG (27.0-34.0) Mean Corpuscular Hemoglobin Concent 31.9 % (32.0-36.0) 32.7 % (32.0-36.0) Red Cell Distribution Width 13.7 % (11.6-17.2) 14.0 % (11.6-17.2) Platelet Count 167 TH/MM3 (150-450) 146 TH/MM3 (150-450) Mean Platelet Volume 9.3 FL (7.0-11.0) 10.1 FL (7.0-11.0) Blood Urea Nitrogen 47 MG/DL (7-18) 44 MG/DL (7-18) Creatinine 0.84 MG/DL (0.60-1.30) 0.76 MG/DL (0.60-1.30) Random Glucose 170 MG/DL (74-106) 214 MG/DL (74-106) Calcium Level 8.6 MG/DL (8.5-10.1) 8.2 MG/DL (8.5-10.1) Sodium Level 144 MEQ/L (136-145) 141 MEQ/L (136-145) Potassium Level 4.4 MEQ/L (3.5-5.1) 4.4 MEQ/L (3.5-5.1) Chloride Level 109 MEQ/L (98-107) 106 MEQ/L (98-107) Carbon Dioxide Level 30.1 MEQ/L (21.0-32.0) 28.0 MEQ/L (21.0-32.0) Anion Gap 5 MEQ/L (5-15) 7 MEQ/L (5-15) Estimat Glomerular Filtration Rate 90 ML/MIN (>89) 101 ML/MIN (>89) Blood Gas Puncture Site RT RADIAL Blood Gas Patient Temperature 98.6 Blood Gas HCO3 27 mmol/L (22-26) Blood Gas Base Excess 2.1 mmol/L (-2-2) Blood Gas Oxygen Saturation 90 % (90-100) Arterial Blood pH 7.34 (7.380-7.420) Arterial Blood Partial Pressure CO2 52 mmHg (38-42) Arterial Blood Partial Pressure O2 63 mmHg (61-120) Arterial Blood Oxygen Content 15.7 Vol % (12.0-20.0) Arterial Blood Carboxyhemoglobin 0.7 % (0-4) Arterial Blood Methemoglobin 1.2 % (0-2) Blood Gas Hemoglobin 12.5 G/DL (12.0-16.0) Oxygen Delivery Device VENTILATOR Blood Gas Ventilator Setting Blood Gas Inspired Oxygen 100 % Prothrombin Time 11.1 SEC (9.8-11.6) Prothromb Time International Ratio 1.1 RATIO Activated Partial Thromboplast Time 21.9 SEC (24.3-30.1) Test 05/11/17 20:08 05/12/17 10:15 05/12/17 13:50 Activated Partial Thromboplast Time 62.8 SEC (24.3-30.1) 132.6 SEC (24.3-30.1) 49.7 SEC (24.3-30.1) White Blood Count 33.5 TH/MM3 (4.0-11.0) Red Blood Count 4.73 MIL/MM3 (4.50-5.90) Hemoglobin 14.8 GM/DL (13.0-17.0) Hematocrit 44.0 % (39.0-51.0) Mean Corpuscular Volume 93.0 FL (80.0-100.0) Mean Corpuscular Hemoglobin 31.3 PG (27.0-34.0) Mean Corpuscular Hemoglobin Concent 33.6 % (32.0-36.0) Red Cell Distribution Width 14.0 % (11.6-17.2) Platelet Count 141 TH/MM3 (150-450) Mean Platelet Volume 10.5 FL (7.0-11.0) Neutrophils (%) (Auto) 96.4 % (16.0-70.0) Lymphocytes (%) (Auto) 1.1 % (9.0-44.0) Monocytes (%) (Auto) 1.5 % (0.0-8.0) Eosinophils (%) (Auto) 0.0 % (0.0-4.0) Basophils (%) (Auto) 1.0 % (0.0-2.0) Neutrophils # (Auto) 32.3 TH/MM3 (1.8-7.7) Lymphocytes # (Auto) 0.4 TH/MM3 (1.0-4.8) Monocytes # (Auto) 0.5 TH/MM3 (0-0.9) Eosinophils # (Auto) 0.0 TH/MM3 (0-0.4) Basophils # (Auto) 0.3 TH/MM3 (0-0.2) CBC Comment AUTO DIFF Differential Total Cells Counted 100 Neutrophils % (Manual) 76 % (16-70) Band Neutrophils % 21 % (0-6) Lymphocytes % 1 % (9-44) Monocytes % 2 % (0-8) Neutrophils # (Manual) 32.5 TH/MM3 (1.8-7.7) Differential Comment FINAL DIFF MANUAL Platelet Estimate LOW (NORMAL) Platelet Morphology Comment NORMAL (NORMAL) Red Cell Morphology Comment NORMAL (NORMAL) Hematology Comments Blood Urea Nitrogen 38 MG/DL (7-18) Creatinine 0.66 MG/DL (0.60-1.30) Random Glucose 190 MG/DL (74-106) Calcium Level 8.0 MG/DL (8.5-10.1) Phosphorus Level 1.6 MG/DL (2.5-4.9) Magnesium Level 2.6 MG/DL (1.5-2.5) Sodium Level 140 MEQ/L (136-145) Potassium Level 4.3 MEQ/L (3.5-5.1) Chloride Level 105 MEQ/L (98-107) Carbon Dioxide Level 27.5 MEQ/L (21.0-32.0) Anion Gap 8 MEQ/L (5-15) Estimat Glomerular Filtration Rate 118 ML/MIN (>89) Result Diagram: 05/12/17 1015 05/12/17 1015 Microbiology Microbiology Date/Time Source Procedure Growth Status 05/12/17 12:00 Sputum Endotracheal Gram Stain Pending Received 05/12/17 12:00 Sputum Endotracheal Sputum Culture Pending Received Procedures 05/06/2017- Intubation . Assessment and Plan Disease Oriented Problem List: (1) COPD with acute exacerbation (2) Healthcare-associated pneumonia (3) Atrial fibrillation with RVR (4) Hypernatremia Symptom Scale: (1) Shortness of breath 0-10 Scale: Unable to quantify Comment: Hx of COPD. Currently being treated for pneumonia. On Ventilator. . (2) Debility 0-10 Scale: Unable to quantify Pertinent Non-Medical Issues Psychosocial: Originally from [place], has 4 children 3 sons one daughter from a previous marriage. to current Geneva Stone Spiritual: Episcopalian but not spiritism Legal:Geneva Stone [phone] and primary healthcare surrogate 1st and 2nd alternate repectively. Arsenio Stone (son) [phone] Zenia Ayah (daughter) [phone] Ethical issues impacting care: None Important Contacts Geneva Stone [phone] 1st and 2nd alternate repectively. Arsenio Stone (son) [phone] Zenia Ayah (daughter) [phone] Prognosis Prognosis is guarded for current hospitalization, poor overall. History of debility and gradual decline following stroke in July 2016. History of recurrent aspiration pneumonia, COPD, confusion, extended nursing/ rehabilitation facility stay. If patient were to survive current hospitalization, at risk of continuing rehospitalization infection, wounds, and challenges to care secondary to agitation. . Code Status: No Code Plan * NO CODE - DNR/DNI * Legal decision maker: Patient is currently intubated on mechanical ventilation and is not able to make his own medical decisions. It is unknown at this time if he will be able to regain capacity to make medical decisions. Patient's health care surrogate is his spouse, Jesusita Stone and his Ist alternate HCS is Arsenio Stone (son) and 2nd alternate HCS is Zenia Poon ( daughter). * Goals: Aggressive short of no code * Discussed patient with bedside nurse, Zenia * SYMPTOMS: == Shortness of breath: Multifactorial. Patient has history of COPD. Came in with complaints of shortness of breath requiring intubation. Chest x-ray revealing scattered bibasilar atelectasis/infiltrates and small left pleural effusion. Patient is currently requiring 100% FiO2 and only saturating low 90s. CT angiogram showed no evidence of PE. On Duonebs and Antibiotics. No recommendations. == Debility: Progressive. Patient has continued to decline since her last hospitalization in July, for a stroke. Patient has had various stays at rehabilitation and nursing facilities. Currently intubated. May benefit from a Physical therapy consultation if goals remain aggressive. However, patient may not tolerate rehabilitation secondary to metabolic encephalopathy. * 05/12/17: Palliative Care met with patient's and son. Provided an update on the patient's clinical condition. They verbalize understanding that the patient remains critically ill. Ms. Stone remains cautiously hopeful stating, "He was supposed to a few times before but he always came through." Patient' s son responded to his mother stating, "Yea - but his is a lot weaker now than he was in the past. This might be different" Both are in agreement that the goals should remain aggressive up to the point of cardiopulmonary resuscitation ; they state they have had multiple conversations with the patient over the years and know "without a doubt" that the patient would not want to proceed with trach and PEG. The patient's son had some questions about what would happen if his father was unable to wean from the ventilator. We briefly discussed passionate withdrawal artificial life support; hospice was introduced. * Palliative care contact information provided to the patient's family. * Palliative care will continue to follow the patient during hospital course as condition evolves, to assist patient/decision-maker with understanding of their medical conditions, weighing benefits/burdens of treatment options, for clarification of goals of treatment. Additionally will assist with any symptoms of palliative concern. Attestation To help prompt me to consider important information that might be impacting today's encounter and assessment, information from prior notes written by myself or my colleagues may have been "brought forward" into today's note. My signature on this note, however, is an attestation that I personally performed the exam, history, and/or decision-making noted today, and, unless otherwise indicated, the interactions with patient, family, and staff as well as the review of records all occurred today. I also attest that the listed assessment and stated plan reflect my best clinical judgment today based on the combination of historical information, prior notes, and today's exam/ interactions. When time spent is documented, it refers only to time spent today by the signer, or if indicated, combined time spent today by collaborating physician/nurse practitioner. . Paola Castaneda May 12, 2017 16:00
[2017-05-12] MEDS: FUROSEMIDE 40 MG/4 ML VIAL IV PUSH SCH ×2 (17:07→18:00)
[2017-05-12] MEDS: fentaNYL DRIP 250 ML IV PRN (17:30)
[2017-05-12] MEDS ORDERED: DIATRIZOATE MEGLUM/DIATRIZOATE SOD 9 ML CUP PO ONE (17:45)
[2017-05-12] MEDS ORDERED: METOPROLOL TARTRATE 5 MG/5 ML VIAL ONE (19:55)
[2017-05-12] MEDS: AMIODARONE INJ 450 MG in SODIUM CHLOR 0.9% (EXCEL) INJ 250 ML IV PRN (19:58)
[2017-05-12] MEDS ORDERED: PHARMACY ORDERED LAB ONE (20:45)
[2017-05-12] MEDS ORDERED: VANCOMYCIN INJ 1,500 MG in SODIUM CHLORID 0.9% 500 ML INJ 500 ML IV SCH (21:00)
[2017-05-13] VITALS (56 sets, daily range): BP systolic 129–204; BP diastolic 60–112; PULSE 73–130; RESP 14–28; TEMP 97.8–98.6; O2SAT 92–100
[2017-05-13] MEDS: PIPERACIL-TAZO 4.5 GM PREMIX 100 ML IV SCH (01:30)
[2017-05-13] MEDS: RESP: ALBUTEROL 2.5 MG/IPRATROPIUM 0.5 MG NEB (SCH) INH ×5 (02:59→19:56)
[2017-05-13] MEDS: CHLORHEXIDINE GLUCONATE 2 % 1 PACK (2 CLOTHS)(taper/protocol) TOPICAL SCH (03:28)
[2017-05-13] MEDS: AMIODARONE INJ 450 MG in SODIUM CHLOR 0.9% (EXCEL) INJ 250 ML IV PRN (03:29)
[2017-05-13] MEDS: INSULIN NovoLIN REGULAR SUPPLEMENTAL SCALE SQ SCH ×6 (03:52→21:58)
[2017-05-13 05:33] LABS: HEMATOCRIT 48.9 % (39.0-51.0); HEMOGLOBIN 15.9 GM/DL (13.0-17.0); MEAN CELL VOLUME 94.5 FL (80.0-100.0); MEAN CORPUSCULAR HEMOGLOBIN 30.7 PG (27.0-34.0); MEAN CORPUSCULAR HGB CONC 32.5 % (32.0-36.0); MEAN PLATELET VOLUME 11.2 FL (7.0-11.0); PLATELET COUNT 167 TH/MM3 (150-450); RED BLOOD COUNT 5.18 MIL/MM3 (4.50-5.90); RED CELL DISTRIBUTION WIDTH 14.2 % (11.6-17.2); WHITE BLOOD COUNT 46.6 TH/MM3 (4.0-11.0)
[2017-05-13 05:56] LABS: BICARBONATE 24.2 MEQ/L (21.0-32.0); CALCIUM 8.5 MG/DL (8.5-10.1); CREATININE 1.31 MG/DL (0.60-1.30)
[2017-05-13] MEDS: DILTIAZEM HCL 30 MG TAB OG-TUBE SCH ×4 (06:00→20:12)
[2017-05-13] MEDS: FREE WATER G-TUBE SCH ×3 (06:00→18:00)
[2017-05-13] MEDS ORDERED: DILTIAZEM HCL 25 MG/5 ML VIAL IV ONE ×2 (07:45→09:30)
--- NOTE | 2017-05-13 07:48 | HHI.CCPN ---
Subjective Remarks/Hospital Course Hospital Course: This is a 71-year-old patient with a history of COPD and atrial fibrillation who presented to the emergency department with a report of chest pain, but resolved on the way to the hospital. He has a history of CVA with residual left -sided weakness. In the emergency department he was significant short breath and was placed on BiPAP for respiratory distress. ABG despite BiPAP demonstrates a PCO2 of 88 and the patient continued to decline despite our attempts and he was intubated by the emergency department physician. When I evaluated the patient, the patient is artery recently intubated and sedated. No additional information is available from the patient. Chest x-ray demonstrates questionable right lung atelectasis versus possible early consolidation, possible viral/atypical pneumonia. Subjective: 2: no improvements. remains on vent. discussed with at length: apparently he has had significant functional decline since stroke in 12/2016, and has had multiple repeat hospitalizations, including SNF, LTAC, rehab level care, and has continued to decline. this likely represents a slow terminal decline in function. expressed my concern that he may not get back to functional status. goals remain aggressive for now. sputum growing staph. 2/: no meaningful improvements. more hypercarbic today: pco2 back in the 70s. sputum growing staph aureus, will narrow spectrum, but leave atypical coverage given COPD and clinical course that may suggest atypical pneumonia. palliative consulted. 2: no significant improvements. wbc still elevated, but may be steroid response. still altered with metabolic encephalopathy. weaning sedation. failing cpap trials. has required LTAC level care for slow wean before: may require again. 05/10: encephalopathy persists. most likely hypoactive delirium. failing CPAP trials for delirium and too somnolent to pass successfully. may require tracheostomy if goals remain aggressive. 05/11 Patient remains intubated and on Precedex drip. Afebrile. 05/12 Patient remains intubated and sedated. On Heparin drip. T:99.7 last night. 05/13 Patient remains intubated sedated with Fentanyl drip. T: 100.8. C-diff PCR positive last night. Started on Amio drip last night for Afib RVR Objective Vital Signs Date Time Temp Pulse Resp B/P (MAP) Pulse Ox O2 Delivery O2 Flow Rate FiO2 05/13/17 06:00 124 05/13/17 04:00 50 05/13/17 04:00 18 96 05/13/17 03:39 167/96 (119) 05/12/17 16:00 98.8 Intake and Output 05/13/17 05/13/17 05/14/17 08:00 16:00 00:00 Intake Total 2249 ml Output Total 600 ml Balance 1649 ml Result Diagram: 05/13/17 0502 05/13/17 0502 Other Results Laboratory Tests Test 05/12/17 10:15 05/12/17 13:50 05/12/17 17:30 05/12/17 22:11 White Blood Count 33.5 TH/MM3 Red Blood Count 4.73 MIL/MM3 Hemoglobin 14.8 GM/DL Hematocrit 44.0 % Mean Corpuscular Volume 93.0 FL Mean Corpuscular Hemoglobin 31.3 PG Mean Corpuscular Hemoglobin Concent 33.6 % Red Cell Distribution Width 14.0 % Platelet Count 141 TH/MM3 Mean Platelet Volume 10.5 FL Neutrophils (%) (Auto) 96.4 % Lymphocytes (%) (Auto) 1.1 % Monocytes (%) (Auto) 1.5 % Eosinophils (%) (Auto) 0.0 % Basophils (%) (Auto) 1.0 % Neutrophils # (Auto) 32.3 TH/MM3 Lymphocytes # (Auto) 0.4 TH/MM3 Monocytes # (Auto) 0.5 TH/MM3 Eosinophils # (Auto) 0.0 TH/MM3 Basophils # (Auto) 0.3 TH/MM3 CBC Comment AUTO DIFF Differential Total Cells Counted 100 Neutrophils % (Manual) 76 % Band Neutrophils % 21 % Lymphocytes % 1 % Monocytes % 2 % Neutrophils # (Manual) 32.5 TH/MM3 Differential Comment FINAL DIFF MANUAL Platelet Estimate LOW Platelet Morphology Comment NORMAL Red Cell Morphology Comment NORMAL Hematology Comments Activated Partial Thromboplast Time 132.6 SEC 49.7 SEC 78.0 SEC Blood Urea Nitrogen 38 MG/DL Creatinine 0.66 MG/DL Random Glucose 190 MG/DL Calcium Level 8.0 MG/DL Phosphorus Level 1.6 MG/DL Magnesium Level 2.6 MG/DL Sodium Level 140 MEQ/L Potassium Level 4.3 MEQ/L Chloride Level 105 MEQ/L Carbon Dioxide Level 27.5 MEQ/L Anion Gap 8 MEQ/L Estimat Glomerular Filtration Rate 118 ML/MIN Stool C. difficile Toxin (PCR) POSITIVE Stl C. difficile Toxin Epiderm 027 PRESUMPTIVE POSITIVE Test 05/13/17 05:02 White Blood Count 46.6 TH/MM3 Red Blood Count 5.18 MIL/MM3 Hemoglobin 15.9 GM/DL Hematocrit 48.9 % Mean Corpuscular Volume 94.5 FL Mean Corpuscular Hemoglobin 30.7 PG Mean Corpuscular Hemoglobin Concent 32.5 % Red Cell Distribution Width 14.2 % Platelet Count 167 TH/MM3 Mean Platelet Volume 11.2 FL Activated Partial Thromboplast Time 55.0 SEC Blood Urea Nitrogen 49 MG/DL Creatinine 1.31 MG/DL Random Glucose 163 MG/DL Calcium Level 8.5 MG/DL Sodium Level 136 MEQ/L Potassium Level 5.1 MEQ/L Chloride Level 103 MEQ/L Carbon Dioxide Level 24.2 MEQ/L Anion Gap 9 MEQ/L Estimat Glomerular Filtration Rate 54 ML/MIN Imaging Last Impressions Lower Extremity Ultrasound 05/11/17 Signed Impressions: Service Date/Time: Thursday, May 11, 2017 10:33 - CONCLUSION: 1. Occlusive thrombus within the left proximal deep femoral vein as well as nonocclusive thrombus within the left common femoral, greater saphenous origin and bifurcation of the superficial femoral and deep femoral veins. 2. No deep venous thrombosis within the right lower extremity. Roque Hodge MD Chest X-Ray 05/11/17 0000 Signed Impressions: Service Date/Time: Thursday, May 11, 2017 07:57 - CONCLUSION: Scattered bibasilar atelectasis and/or infiltrates. Small left pleural effusion. Cardiomegaly. Roque Hodge MD CT Angiography 05/11/17 0000 Signed Impressions: Service Date/Time: Thursday, May 11, 2017 16:55 - CONCLUSION: Significant bibasilar consolidative changes or trace pleural effusion. Negative for central pulmonary emboli. Enoch Phillips MD FACR Objective Remarks GENERAL: Patient is 71 yo intubated and sedated SKIN: Warm and dry. HEAD: Normocephalic. EYES: No scleral icterus. No injection or drainage. NECK: Supple, trachea midline. No JVD or lymphadenopathy. CARDIOVASCULAR: Regular rate and rhythm without murmurs, gallops, or rubs. RESPIRATORY: Breath sounds equal bilaterally. No accessory muscle use. GASTROINTESTINAL: Abdomen soft, non-tender, nondistended. MUSCULOSKELETAL: No cyanosis, +edema. Neuro: Intubated A/P Assessment and Plan Neuro: On Fentanyl infusion for sedation. Daily sedation vacation. Monitor neuro status. Check CT brain , EEG Pulm: Acute Severe COPD Exacerbation Acute hypoxic and hypercarbic respiratory failure Healthcare Associated Pneumonia: Staph aureus On PRVC/AV RR 18, TV 500, IT:1.0, PEEP:10 FIO2 50% Continue with vent support keep sat >92% Bronchodilators, ICU vent bundle. Daily SBT as kashmir when his oxygenation is better On Solumederol 60mg Q12 CTA chest showed no PE, consolidative changes at bases CV: Atrial fibrillation with rapid ventricular response On Amio drip - Monitor HR and BP keep MAP>65mmHg Increase Cardizem 60mg Q6, add Lopressor 50mg Q12, Clonidine 0.2mg Q8 For 2Decho to eval LV function : Monitor renal function, I/O's, electrolytes replacement per protocol. Decrease Lasix 40mg IV daily, add NS@50ml/hr GI: Continue tube feeds- Jevity 1.5 @60ml/hr, Free water 300ml Q12 On Pepcid for GI prophylaxis ID: 05/06 Sputum cx: Staph Aureus sensitive to Rocephin Positive C-diff PCR d/c Vanco IV and Zosyn , add Rocephin and continue with Azithromycin.monitor for signs of infections ( Fever, WBC) Sputum: MRSA sensitive for Rocephin, recheck sputum cx C-diff PCR positive 05/12. Add Flagyl 500mg IV Q8, PO Vanco 125mg QID Strep pneumonia and Legionella urinary Ag negative on 05/07 Nasal washing negative for Flu on 05/06 Heme: Monitor CBC Endo: SSI for glycemic control GI prophylaxis- Pepcid DVT prophylaxis- SCD, Heparin drip Doppler US LE :Occlusive thrombus within the left proximal deep femoral vein as well as nonocclusive thrombus within the left common femoral, greater saphenous origin and bifurcation of the superficial femoral and deep femoral veins. No DVT within the right lower extremity. Palliative care is following CCT 30 mins Juan Han MD May 13, 2017 07:48
[2017-05-13] MEDS: CHLORHEXIDINE 0.12% (ORAL KIT) 15 ML CUP MT SCH ×2 (08:00→20:10)
[2017-05-13] MEDS: FAMOTIDINE 20 MG/2 ML VIAL IV PUSH SCH ×2 (08:17→20:11)
[2017-05-13] MEDS: methylPREDNISolone SOD SUCC 125 MG/2 ML VIAL IV PUSH SCH ×2 (08:17→20:11)
[2017-05-13] MEDS: MODAFINIL 200 MG TAB PO SCH (08:18)
[2017-05-13] MEDS: fentaNYL DRIP 250 ML IV PRN (09:12)
[2017-05-13] MEDS: metroNIDAZOLE 500 MG INJ 100 ML IV SCH ×2 (09:25→16:02)
[2017-05-13] MEDS ORDERED: METOPROLOL TARTRATE 5 MG/5 ML VIAL ONE (09:44)
[2017-05-13] MEDS ORDERED: DIATRIZOATE MEGLUM/DIATRIZOATE SOD 9 ML CUP PO ONE (09:45)
[2017-05-13] MEDS: METOPROLOL TARTRATE 50 MG TAB PO SCH ×2 (09:49→20:12)
[2017-05-13] MEDS: FUROSEMIDE 40 MG/4 ML VIAL IV PUSH SCH (09:50)
[2017-05-13] MEDS: VANCOMYCIN 500 MG VIAL (FOR ORAL USE ONLY) PO SCH ×4 (09:50→20:12)
[2017-05-13] MEDS: cefTRIAXone INJ 1,000 MG in SODIUM CHLORIDE 0.9% INJ 100 ML IV SCH (09:50)
[2017-05-13] MEDS ORDERED: DILTIAZEM 125 MG/NS 100 ML IV PRN ×2 (10:15)
[2017-05-13] MEDS: cloNIDine HCL 0.2 MG TAB PO SCH ×2 (11:11→18:30)
[2017-05-13] MEDS: SODIUM CHLOR 0.9% 1000 ML INJ 1,000 ML IV SCH (11:39)
--- NOTE | 2017-05-13 12:11 | HHI.HCPN ---
Reason for visit a. To assist with evaluation and management of symptoms including: Shortness of breath, debility b. To assist medical decision maker(s) with: better understanding of current medical conditions; weighing benefits/burdens of medical treatment options; making medical treatment decisions. Subjective/Interval History Patient seen and examined in his room in [place]. Patient remains sedated with fentanyl (150 mcg/hr) and intubated on mechanical ventilation with 50% FiO2. On heparin drip Started on amiodarone drip last night for Atrial Fibrillation with RVR; HR 112-124. Received Cardizem 10 mg IV 2 this morning. 05/11/17: Chest x-ray revealed scattered bibasilar atelectasis and/or infiltrates and a small left pleural effusion. Ultrasound to the left lower extremity revealed an occlusive thrombus within the left proximal deep femoral vein as well as nonocclusive thrombus within the left common femoral, greater saphenous origin and bifurcation of the superficial femoral and deep femoral veins. No DVT to RLE. CT Angiogram showed bibasilar consolidative changes or trace pleural effusion; negative for central pulmonary emboli. Febrile. T-Max 100.8. WBC continues to trend upward increasing from 16.9 on Thursday05/11/17 to 46.6 this morning. Sputum culture on 05/06/17 with staph aureus sensitive to Rocephin; follow-up sputum culture pending. C-diff PCR positive 05/12/17 - now on IV Flagyl, Rocephin and PO Vancomycin. Infectious disease consult pending. Worsening renal function. BUN: 49, creatinine 1.31 (increased from 0.66 yesterday 05/12/17) and GFR: 54 Palliative care met with family on 05/12/2017. At that time, the family verbalized understanding that the patient was critically ill. Ms. Stone remained cautiously hopeful stating, "He was supposed to a few times before but he always came through." Patient's son responded to his mother stating, " Yea - but his is a lot weaker now than he was in the past. This might be different" Goals remain aggressive up to the point of cardiopulmonary resuscitation; family stated they have have had multiple conversations with the patient over the years and know "without a doubt" that the patient would not want to proceed with trach and PEG. The patient's son had some questions about what would happen if his father was unable to wean from the ventilator. We briefly discussed passionate withdrawal artificial life support; hospice was introduced. . . Advance Directives Living Will: Copy in medical record Health Care Surrogate: Copy in medical record Advance Directive Specifics Date completed: 12/07/2002 . Health Care Surrogate(s): Health Care Surrogate- Spouse- Geneva Stone [phone] 1st and 2nd alternate respectively. Arsenio Stone (son) [phone] Zenia Poon (daughter) [phone] . Documented care wishes: See scanned copy on EMR . Objective Vital Signs Date Time Temp Pulse Resp B/P (MAP) Pulse Ox O2 Delivery O2 Flow Rate FiO2 05/13/17 10:00 124 05/13/17 09:14 112 201/94 05/13/17 08:00 94 50 05/13/17 08:00 112 18 199/94 (129) 94 05/13/17 08:00 124 05/13/17 06:00 124 05/13/17 04:00 50 05/13/17 04:00 123 18 96 05/13/17 04:00 123 05/13/17 03:39 126 17 167/96 (119) 96 05/13/17 03:32 122 18 179/98 (125) 96 05/13/17 03:30 117 17 188/90 (122) 95 05/13/17 03:29 120 05/13/17 03:00 107 18 130/82 (98) 95 05/13/17 02:59 96 50 05/13/17 02:00 109 05/13/17 00:00 109 05/13/17 00:00 50 05/13/17 00:00 109 14 183/99 (127) 96 05/12/17 23:30 109 18 137/95 (109) 96 05/12/17 23:25 96 50 05/12/17 23:00 107 18 132/79 (96) 96 05/12/17 22:46 114 05/12/17 22:00 106 05/12/17 21:30 107 18 109/70 (83) 97 05/12/17 21:00 111 17 127/74 (91) 97 05/12/17 20:30 106 18 133/85 (101) 95 05/12/17 20:18 95 50 05/12/17 20:00 104 18 107/69 (82) 95 05/12/17 20:00 104 05/12/17 20:00 50 05/12/17 19:58 104 05/12/17 18:32 153 23 172/109 (130) 95 05/12/17 18:30 145 24 173/110 (131) 95 05/12/17 18:00 136 25 147/87 (107) 96 05/12/17 17:00 126 24 155/92 (113) 96 05/12/17 16:57 96 50 05/12/17 16:00 98.8 116 26 154/97 (116) 96 05/12/17 16:00 60 05/12/17 15:00 113 25 142/93 (109) 97 05/12/17 14:00 114 24 151/98 (115) 97 05/12/17 13:00 113 23 150/93 (112) 96 05/12/17 12:00 96 55 05/12/17 12:00 60 05/12/17 12:00 100.6 119 25 147/96 (113) 95 Intake & Output 05/13/17 05/13/17 07:00 19:00 Intake Total 2639 ml 100 ml Output Total 600 ml Balance 2039 ml 100 ml Intake IV Total 390 ml 100 ml Tube Feeding 1125 ml Other 1124 ml Output Urine Total 150 ml Stool Total 450 ml . Physical Exam CONSTITUTIONAL/GENERAL: This is a frail, elderly male patient who remains intubated on mechanical ventilation. TUBES/LINES/DRAINS: ETT, OGT, PIV, FC, Rectal tube SKIN: Hand are swollen and weeping.. Ecchymoses on upper extremities. Skin temperature cool to touch. Not diaphoretic. HEAD: Atraumatic. Normocephalic. EYES: Pupils equal, round, sluggish. No scleral icterus. No injection or drainage. Fundi not examined. ENT: Sedated. Nose without bleeding or purulent drainage. NECK: Trachea midline. Supple, nontender. CARDIOVASCULAR: Regular rate and rhythm without murmurs, gallops, or rubs. No JVD. Peripheral pulses symmetric. RESPIRATORY/CHEST: Intubated on mechanical ventilation. Rhonchi to auscultation. GASTROINTESTINAL: Abdomen soft, non-tender. No guarding. Bowel sounds present. GENITOURINARY: Without palpable bladder distension. Weldon catheter in place. MUSCULOSKELETAL: Extremities without clubbing or cyanosis. + Edema. NEUROLOGICAL: Intubated, unresponsive on fentanyl drip at 50 g per hour. PSYCHIATRIC: Unable to assess, intubated on mechanical ventilation and fentanyl infusion. . Diagnostic Tests Laboratory Laboratory Tests Test 05/11/17 03:49 05/11/17 09:55 05/11/17 14:13 05/11/17 20:08 White Blood Count 16.9 TH/MM3 (4.0-11.0) Red Blood Count 4.17 MIL/MM3 (4.50-5.90) Hemoglobin 12.9 GM/DL (13.0-17.0) Hematocrit 39.4 % (39.0-51.0) Mean Corpuscular Volume 94.4 FL (80.0-100.0) Mean Corpuscular Hemoglobin 30.8 PG (27.0-34.0) Mean Corpuscular Hemoglobin Concent 32.7 % (32.0-36.0) Red Cell Distribution Width 14.0 % (11.6-17.2) Platelet Count 146 TH/MM3 (150-450) Mean Platelet Volume 10.1 FL (7.0-11.0) Blood Urea Nitrogen 44 MG/DL (7-18) Creatinine 0.76 MG/DL (0.60-1.30) Random Glucose 214 MG/DL (74-106) Calcium Level 8.2 MG/DL (8.5-10.1) Sodium Level 141 MEQ/L (136-145) Potassium Level 4.4 MEQ/L (3.5-5.1) Chloride Level 106 MEQ/L (98-107) Carbon Dioxide Level 28.0 MEQ/L (21.0-32.0) Anion Gap 7 MEQ/L (5-15) Estimat Glomerular Filtration Rate 101 ML/MIN (>89) Blood Gas Puncture Site RT RADIAL Blood Gas Patient Temperature 98.6 Blood Gas HCO3 27 mmol/L (22-26) Blood Gas Base Excess 2.1 mmol/L (-2-2) Blood Gas Oxygen Saturation 90 % (90-100) Arterial Blood pH 7.34 (7.380-7.420) Arterial Blood Partial Pressure CO2 52 mmHg (38-42) Arterial Blood Partial Pressure O2 63 mmHg (61-120) Arterial Blood Oxygen Content 15.7 Vol % (12.0-20.0) Arterial Blood Carboxyhemoglobin 0.7 % (0-4) Arterial Blood Methemoglobin 1.2 % (0-2) Blood Gas Hemoglobin 12.5 G/DL (12.0-16.0) Oxygen Delivery Device VENTILATOR Blood Gas Ventilator Setting Blood Gas Inspired Oxygen 100 % Prothrombin Time 11.1 SEC (9.8-11.6) Prothromb Time International Ratio 1.1 RATIO Activated Partial Thromboplast Time 21.9 SEC (24.3-30.1) 62.8 SEC (24.3-30.1) Test 05/12/17 10:15 05/12/17 13:50 05/12/17 17:30 05/12/17 22:11 White Blood Count 33.5 TH/MM3 (4.0-11.0) Red Blood Count 4.73 MIL/MM3 (4.50-5.90) Hemoglobin 14.8 GM/DL (13.0-17.0) Hematocrit 44.0 % (39.0-51.0) Mean Corpuscular Volume 93.0 FL (80.0-100.0) Mean Corpuscular Hemoglobin 31.3 PG (27.0-34.0) Mean Corpuscular Hemoglobin Concent 33.6 % (32.0-36.0) Red Cell Distribution Width 14.0 % (11.6-17.2) Platelet Count 141 TH/MM3 (150-450) Mean Platelet Volume 10.5 FL (7.0-11.0) Neutrophils (%) (Auto) 96.4 % (16.0-70.0) Lymphocytes (%) (Auto) 1.1 % (9.0-44.0) Monocytes (%) (Auto) 1.5 % (0.0-8.0) Eosinophils (%) (Auto) 0.0 % (0.0-4.0) Basophils (%) (Auto) 1.0 % (0.0-2.0) Neutrophils # (Auto) 32.3 TH/MM3 (1.8-7.7) Lymphocytes # (Auto) 0.4 TH/MM3 (1.0-4.8) Monocytes # (Auto) 0.5 TH/MM3 (0-0.9) Eosinophils # (Auto) 0.0 TH/MM3 (0-0.4) Basophils # (Auto) 0.3 TH/MM3 (0-0.2) CBC Comment AUTO DIFF Differential Total Cells Counted 100 Neutrophils % (Manual) 76 % (16-70) Band Neutrophils % 21 % (0-6) Lymphocytes % 1 % (9-44) Monocytes % 2 % (0-8) Neutrophils # (Manual) 32.5 TH/MM3 (1.8-7.7) Differential Comment FINAL DIFF MANUAL Platelet Estimate LOW (NORMAL) Platelet Morphology Comment NORMAL (NORMAL) Red Cell Morphology Comment NORMAL (NORMAL) Hematology Comments Activated Partial Thromboplast Time 132.6 SEC (24.3-30.1) 49.7 SEC (24.3-30.1) 78.0 SEC (24.3-30.1) Blood Urea Nitrogen 38 MG/DL (7-18) Creatinine 0.66 MG/DL (0.60-1.30) Random Glucose 190 MG/DL (74-106) Calcium Level 8.0 MG/DL (8.5-10.1) Phosphorus Level 1.6 MG/DL (2.5-4.9) Magnesium Level 2.6 MG/DL (1.5-2.5) Sodium Level 140 MEQ/L (136-145) Potassium Level 4.3 MEQ/L (3.5-5.1) Chloride Level 105 MEQ/L (98-107) Carbon Dioxide Level 27.5 MEQ/L (21.0-32.0) Anion Gap 8 MEQ/L (5-15) Estimat Glomerular Filtration Rate 118 ML/MIN (>89) Stool C. difficile Toxin (PCR) POSITIVE (NEGATIVE) Stl C. difficile Toxin Epiderm 027 PRESUMPTIVE POSITIVE Test 05/13/17 05:02 White Blood Count 46.6 TH/MM3 (4.0-11.0) Red Blood Count 5.18 MIL/MM3 (4.50-5.90) Hemoglobin 15.9 GM/DL (13.0-17.0) Hematocrit 48.9 % (39.0-51.0) Mean Corpuscular Volume 94.5 FL (80.0-100.0) Mean Corpuscular Hemoglobin 30.7 PG (27.0-34.0) Mean Corpuscular Hemoglobin Concent 32.5 % (32.0-36.0) Red Cell Distribution Width 14.2 % (11.6-17.2) Platelet Count 167 TH/MM3 (150-450) Mean Platelet Volume 11.2 FL (7.0-11.0) Activated Partial Thromboplast Time 55.0 SEC (24.3-30.1) Blood Urea Nitrogen 49 MG/DL (7-18) Creatinine 1.31 MG/DL (0.60-1.30) Random Glucose 163 MG/DL (74-106) Calcium Level 8.5 MG/DL (8.5-10.1) Sodium Level 136 MEQ/L (136-145) Potassium Level 5.1 MEQ/L (3.5-5.1) Chloride Level 103 MEQ/L (98-107) Carbon Dioxide Level 24.2 MEQ/L (21.0-32.0) Anion Gap 9 MEQ/L (5-15) Estimat Glomerular Filtration Rate 54 ML/MIN (>89) . Result Diagram: 05/13/17 0502 05/13/17 0502 Microbiology Microbiology Date/Time Source Procedure Growth Status 05/12/17 17:30 Stool Stool Stool Occult Blood ([facility]) - Final HEMOCCULT POSITIVE Complete 05/12/17 12:00 Sputum Endotracheal Gram Stain - Final Resulted 05/12/17 12:00 Sputum Endotracheal Sputum Culture Pending Resulted . Imaging Last 72 hours Impressions Lower Extremity Ultrasound 05/11/17 0000 Signed Impressions: Service Date/Time: Thursday, May 11, 2017 10:33 - CONCLUSION: 1. Occlusive thrombus within the left proximal deep femoral vein as well as nonocclusive thrombus within the left common femoral, greater saphenous origin and bifurcation of the superficial femoral and deep femoral veins. 2. No deep venous thrombosis within the right lower extremity. Roque Hodge MD Chest X-Ray 05/11/17 0000 Signed Impressions: Service Date/Time: Thursday, May 11, 2017 07:57 - CONCLUSION: Scattered bibasilar atelectasis and/or infiltrates. Small left pleural effusion. Cardiomegaly. Roque Hodge MD CT Angiography 05/11/17 0000 Signed Impressions: Service Date/Time: Thursday, May 11, 2017 16:55 - CONCLUSION: Significant bibasilar consolidative changes or trace pleural effusion. Negative for central pulmonary emboli. Enoch Phillips MD FACR . Procedures 05/06/2017- Intubation . Assessment and Plan Disease Oriented Problem List: (1) COPD with acute exacerbation (2) Healthcare-associated pneumonia (3) Atrial fibrillation with RVR (4) Hypernatremia Symptom Scale: (1) Shortness of breath 0-10 Scale: Unable to quantify Comment: Hx of COPD. Currently being treated for pneumonia. On Ventilator. . (2) Debility 0-10 Scale: Unable to quantify Pertinent Non-Medical Issues Psychosocial: Originally from [place], has 4 children 3 sons one daughter from a previous marriage. to current Geneva Stone Spiritual: Confucianist but not methodist Legal:Geneva Stone [phone] and primary healthcare surrogate 1st and 2nd alternate repectively. Arsenio Stone (son) [phone] Zenia Poon (daughter) [phone] Ethical issues impacting care: None Important Contacts Geneva Stone [phone] 1st and 2nd alternate repectively. Arsenio Stone (son) [phone] Zenia Poon (daughter) [phone] Prognosis Prognosis is guarded for current hospitalization, poor overall. History of debility and gradual decline following stroke in July 2016. History of recurrent aspiration pneumonia, COPD, confusion, extended nursing/ rehabilitation facility stay. If patient were to survive current hospitalization, at risk of continuing rehospitalization infection, wounds, and challenges to care secondary to agitation. . Code Status: No Code Plan * NO CODE - DNR/DNI * Legal decision maker: Patient is currently intubated on mechanical ventilation and is not able to make his own medical decisions. It is unknown at this time if he will be able to regain capacity to make medical decisions. Patient's health care surrogate is his spouse, Jesusita Stone and his Ist alternate HCS is Arsenio Stone (son) and 2nd alternate HCS is Zenia Ayah ( daughter). * Goals: Aggressive short of no code * Discussed patient with bedside nurse (Hieu) and Dr. Saunders * SYMPTOMS: == Shortness of breath: Multifactorial. Patient has history of COPD. Came in with complaints of shortness of breath requiring intubation. Chest x-ray revealing scattered bibasilar atelectasis/infiltrates and small left pleural effusion. CT angiogram showed no evidence of PE. On Duonebs and Antibiotics. No recommendations. == Debility: Progressive. Patient has continued to decline since her last hospitalization in July, for a stroke. Patient has had various stays at rehabilitation and nursing facilities. Currently intubated. May benefit from a Physical therapy consultation if goals remain aggressive. However, patient may not tolerate rehabilitation secondary to metabolic encephalopathy. * Attempted to contact patient's family via telephone. Msg left on voicemail; awaiting return pc * Palliative care contact information provided to the patient's family. * Palliative care will continue to follow the patient during hospital course as condition evolves, to assist patient/decision-maker with understanding of their medical conditions, weighing benefits/burdens of treatment options, for clarification of goals of treatment. Additionally will assist with any symptoms of palliative concern. Attestation To help prompt me to consider important information that might be impacting today's encounter and assessment, information from prior notes written by myself or my colleagues may have been "brought forward" into today's note. My signature on this note, however, is an attestation that I personally performed the exam, history, and/or decision-making noted today, and, unless otherwise indicated, the interactions with patient, family, and staff as well as the review of records all occurred today. I also attest that the listed assessment and stated plan reflect my best clinical judgment today based on the combination of historical information, prior notes, and today's exam/ interactions. When time spent is documented, it refers only to time spent today by the signer, or if indicated, combined time spent today by collaborating physician/nurse practitioner. . Paola Castaneda May 13, 2017 12:11
[2017-05-13] MEDS: HEPARIN-D5W 25,000 U/250 ML 250 ML IV PRN (13:22)
--- NOTE | 2017-05-13 13:48 | MB ---
cc: DIAMANTE STEPHENSON MD, ALAA M.D. DATE OF CONSULTATION 05/13/[address] Han. REASON FOR CONSULTATION C. difficile colitis, leukocytosis. HISTORY OF PRESENT ILLNESS This is a 71-year-old white male who presented to the emergency department on 05/06/2017 with shortness of breath and chest pain. The patient has a history of COPD. He was evaluated in the emergency department and was treated with BiPAP without success and he required intubation. He was admitted and started on IV antibiotics. The patient was receiving ceftriaxone and azithromycin. His white blood cell count on admission was 15.5. During the course of the hospitalization the white blood cell count came down slightly and then started increasing again and it savi to 16.9 on 05/11/2017 and the patient had a temperature elevation to 100.4 degrees on 05/11/17. His white count increased dramatically to 33.5 on 05/12/2017 and he was having loose stools. C. difficile toxin was obtained on the stools and it came back positive. The patient was started on treatment for C. difficile and this consultation is requested. The patient is intubated on the ventilator. He opens his eyes but does not respond further. A sputum culture from 05/06/2017 also had growth of staph aureus. The sputum culture has been repeated and the results are pending. He had a chest x-ray on 05/11/2017 which showed bibasilar atelectasis and/or infiltrate. A small pleural effusion on the left side was also noted. Because the patient is on the ventilator information is obtained from the medical record. PAST MEDICAL HISTORY 1. COPD. 2. Congestive heart failure. 3. Hypercholesteremia. 4. Obstructive sleep apnea. 5. Kidney stones. 6. History of coronary stent. 7. History of CVA. 8. Tonsillectomy. ALLERGIES No known drug allergies. The patient is allergic to HORNET VENOM. MEDICATIONS 1. Vancomycin p.o. 2. Metronidazole IV. 3. Ceftriaxone. 4. Cardizem. 5. Lasix. 6. Lopressor. 7. Pepcid. 8. Insulin. 9. Modafinil. 10.Methylprednisolone. 11.Potassium. 12.DuoNeb. SOCIAL HISTORY No tobacco, no alcohol, no illicit drugs noted. FAMILY HISTORY Unable to obtain. REVIEW OF SYSTEMS Unable to obtain because the patient is on the ventilator. PHYSICAL EXAMINATION GENERAL: This is a well-developed male who is on the ventilator. He is awakens and opens his eyes but does not respond further. VITAL SIGNS: Temperature 98.8. T-max 100.8 today. Blood pressure 142/67, heart rate 82. HEENT: Pupils are reactive to light. Extraocular movements appear grossly intact. No icterus. No conjunctival erythema. Oropharynx intubated. NECK: No adenopathy. No swelling. LUNGS: Slight rhonchi at the left base, otherwise clear. HEART: Irregular rate and rhythm. 1/6 systolic murmur at the left sternal border. ABDOMEN: Bowel sounds diminished. Soft. Obese. RECTAL: Not performed. EXTREMITIES: Diffuse ecchymosis and trace edema of the extremities. Pulses of the extremities are normal. The left foot is cool to touch. NEUROLOGIC: Unable to assess. PSYCHIATRIC: Unable to assess. LABORATORY WBC 46.6, platelets 167, hemoglobin 16.9. Creatinine 1.31, BUN 49, estimated GFR 54, sodium 136. IMPRESSION 1. C. difficile colitis. Patient with 027 positive strain. 2. Pneumonia due to staph aureus. 3. Acute respiratory failure. 4. Leukocytosis. RECOMMENDATIONS 1. Continue oral vancomycin for C. difficile. 2. Continue IV metronidazole for C. difficile. 3. Continue ceftriaxone. 4. Monitor white blood cell count. 5. Follow-up on the new sputum culture which was obtained today. 6. Follow the clinical status. I will monitor the patient's progress with you and make further recommendations upon follow-up. Diamante Stephenson MD FD/VICTORIA /12:28 PM /1:29 PM NORMNA
[2017-05-13] MEDS ORDERED: IOHEXOL 350 MG/ML 10 ML VIAL (for RAD DIAG) IVCONTRAST ONE (14:17)
--- NOTE | 2017-05-13 14:31 | RADRPT ---
EXAM DATE/TIME: 05/13/2017 14:12 [facility] COMPARISON: CT BRAIN W/O CONTRAST, July 30, 2016, 14:25. INDICATIONS : Head pain due to altered mental status. RADIATION DOSE: 54.55 CTDIvol (mGy) MEDICAL HISTORY : Cerebrovascular disease. Cardiovascular disease Hypertension.DVT, Kidney stones. SURGICAL HISTORY : None. ENCOUNTER: Initial ACUITY: 1 day PAIN SCALE: Non-responsive LOCATION: Bilateral cranial TECHNIQUE: Multiple contiguous axial images were obtained of the head. Using automated exposure control and adj ustment of the mA and/or kV according to patient size, radiation dose was kept as low as reasonably a chievable to obtain optimal diagnostic quality images. DICOM format image data is available electro nically for review and comparison. FINDINGS: Old infarct in the right posterior sylvian region. Left hemisphere are unremarkable. The jugular si ze appropriate. There is no parenchymal hemorrhage. Posterior fossa normal Left maxillary sinus disease. CONCLUSION: Moderate motion artifact, 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 Enoch Phillips MD FACR on May 13, 2017 at 14:27 Board Certified Radiologist. This report was verified electronically.
--- NOTE | 2017-05-13 14:58 | RADRPT ---
EXAM DATE/TIME: 05/13/2017 14:23 [facility] COMPARISON: No previous studies available for comparison. INDICATIONS : Diffuse abdomen pain with leukocytosis. IV CONTRAST: 70 cc Omnipaque 350 (iohexol) IV ORAL CONTRAST: Prescribed oral contrast ingested. RADIATION DOSE: 16.98 CTDIvol (mGy) MEDICAL HISTORY : Cardiovascular disease. Cerebrovascular disease. Hypertension.Kidney stones, DVT. SURGICAL HISTORY : None. ENCOUNTER: Initial ACUITY: 1 day PAIN SCALE: Non-responsive LOCATION: Bilateral upper quadrant TECHNIQUE: Volumetric scanning of the abdomen and pelvis was performed. Using automated exposure control and ad justment of the mA and/or kV according to patient size, radiation dose was kept as low as reasonably achievable to obtain optimal diagnostic quality images. DICOM format image data is available electro nically for review and comparison. FINDINGS: Bibasilar parenchymal changes. Marked coronary calcifications. Modest ascites with small shrunken liver Prominent gallbladder containing multiple small gallstones without inflammatory changes Pancreas and spleen are unremarkable Symmetrical renal function renal mass. 2.2 cm left renal cyst There are inflammatory changes in the abdomen. Mild bowel wall thickening is present in the sigmoid colon. There is no adenopathy There are no inflammatory changes in the pelvis. There is no adenopathy. There is no hernia. Revie w of bone windows reveals degenerative changes. CONCLUSION: 1. Ascites with small shrunken liver and prominent gallbladder. 2. There no inflammatory changes around the gallbladder 3. I do not see etiology for leukocytosis abdominal pain. 4. Mild bowel wall thickening sigmoid colon Enoch Phillips MD FACR on May 13, 2017 at 14:43 Board Certified Radiologist. This report was verified electronically.
[2017-05-13 19:08] LABS: BICARBONATE 24.3 MEQ/L (21.0-32.0); CALCIUM 8.2 MG/DL (8.5-10.1); CREATININE 1.6 MG/DL (0.60-1.30)
--- NOTE | 2017-05-13 19:36 | ECHRPT ---
Indication: EVAL EF CONCLUSIONS Technically difficult study. The left ventricular systolic function is normal with an estimated ejection fraction in the range of 55-60%. There was limited left ventricular wall motion assessment due to poor endocardial visualization. Trace mitral valve regurgitation. There is trace tricuspid valve regurgitation. BP: 126 / 75 HR: 115 Rhythm: Sinus MEASUREMENTS (Male / Female) Normal Values Technical Quality:Technically difficult study 2D ECHO LV Diastolic Diameter PLAX 3.4 cm 4.2 - 5.9 / 3.9 - 5.3 cm LV Systolic Diameter PLAX 2.6 cm IVS Diastolic Thickness 1.1 cm 0.6 - 1.0 / 0.6 - 0.9 cm LVPW Diastolic Thickness 1.1 cm 0.6 - 1.0 / 0.6 - 0.9 cm LV Relative Wall Thickness 0.6 LVOT Diameter 2.0 cm LV Ejection Fraction MOD 4C 57.8 % LV Cardiac Index MOD 4C 1308.4 cm/minm LV Ejection Fraction 4C AL 58.0 % LV Cardiac Index 4C AL 1320.2 cm/minm M-MODE Aortic Root Diameter MM 3.3 cm AV Cusp Separation MM 1.0 cm DOPPLER AV Peak Velocity 143.0 cm/s AV Peak Gradient 8.2 mmHg LVOT Peak Velocity 77.0 cm/s LVOT Peak Gradient 2.4 mmHg AV Area Cont Eq pk 1.7 cm LV E' Lateral Velocity 7.8 cm/s LV E' Septal Velocity 4.9 cm/s TR Peak Velocity 246.0 cm/s TR Peak Gradient 24.2 mmHg Right Atrial Pressure 10.0 mmHg Pulmonary Artery Systolic Pressu 34.2 mmHg Right Ventricular Systolic Press 34.2 mmHg PV Peak Velocity 77.4 cm/s PV Peak Gradient 2.4 mmHg FINDINGS LEFT VENTRICLE The left ventricular systolic function is normal with an estimated ejection fraction in the range of 55-60%. Normal left ventricular size. Wall thickness is normal. There was limited left ventricular wall motion assessment due to poor endocardial visualization. RIGHT VENTRICLE Normal right ventricular size LEFT ATRIUM The left atrial size is normal. RIGHT ATRIUM The right atrial size is normal. ATRIAL SEPTUM Normal atrial septal thickness. AORTA The aortic root and proximal ascending aorta are normal in size on limited imaging. MITRAL VALVE Structurally normal mitral valve. No mitral valve stenosis. Trace mitral valve regurgitation. AORTIC VALVE Aortic valve sclerosis is present. No aortic valve regurgitation. No aortic valve stenosis. TRICUSPID VALVE Structurally normal tricuspid valve. There is trace tricuspid valve regurgitation. The estimated pulmonary arterial pressure is 34.2 mmHg. PULMONARY VALVE No pulmonary valve regurgitation or stenosis. VESSELS The inferior vena cava is normal in size. PERICARDIUM No pericardial effusion. Alexandr Barr DO (Electronically Signed) Final Date:13 May 2017 19:35
[2017-05-14] VITALS (18 sets, daily range): BP systolic 104–175; BP diastolic 63–92; PULSE 60–88; RESP 11–16; TEMP 98.3–99.3; O2SAT 92–96
[2017-05-14] MEDS: FREE WATER G-TUBE SCH
[2017-05-14] MEDS: RESP: ALBUTEROL 2.5 MG/IPRATROPIUM 0.5 MG NEB (SCH) INH ×4 (00:12→11:47)
[2017-05-14] MEDS: CHLORHEXIDINE 0.12% (ORAL KIT) 15 ML CUP MT SCH ×2 (01:28→21:21)
[2017-05-14] MEDS: metroNIDAZOLE 500 MG INJ 100 ML IV SCH ×3 (01:29→17:03)
[2017-05-14] MEDS: DILTIAZEM HCL 30 MG TAB OG-TUBE SCH ×4 (03:36→21:21)
[2017-05-14] MEDS: cloNIDine HCL 0.2 MG TAB PO SCH ×3 (03:36→17:03)
[2017-05-14] MEDS: INSULIN NovoLIN REGULAR SUPPLEMENTAL SCALE SQ SCH ×6 (04:00→21:23)
[2017-05-14 05:14] LABS: HEMATOCRIT 42.3 % (39.0-51.0); HEMOGLOBIN 13.8 GM/DL (13.0-17.0); MEAN CELL VOLUME 93.3 FL (80.0-100.0); MEAN CORPUSCULAR HEMOGLOBIN 30.4 PG (27.0-34.0); MEAN CORPUSCULAR HGB CONC 32.6 % (32.0-36.0); MEAN PLATELET VOLUME 11.6 FL (7.0-11.0); PLATELET COUNT 179 TH/MM3 (150-450); RED BLOOD COUNT 4.54 MIL/MM3 (4.50-5.90); RED CELL DISTRIBUTION WIDTH 14.3 % (11.6-17.2); WHITE BLOOD COUNT 41.8 TH/MM3 (4.0-11.0)
[2017-05-14 05:19] LABS: BICARBONATE 24.9 MEQ/L (21.0-32.0); CALCIUM 8.5 MG/DL (8.5-10.1); CREATININE 1.95 MG/DL (0.60-1.30); MAGNESIUM 2.9 MG/DL (1.5-2.5)
[2017-05-14 05:22] LABS: PHOSPHORUS 5.5 MG/DL (2.5-4.9)
--- NOTE | 2017-05-14 07:13 | HHI.CCPN ---
Subjective Remarks/Hospital Course Hospital Course: This is a 71-year-old patient with a history of COPD and atrial fibrillation who presented to the emergency department with a report of chest pain, but resolved on the way to the hospital. He has a history of CVA with residual left -sided weakness. In the emergency department he was significant short breath and was placed on BiPAP for respiratory distress. ABG despite BiPAP demonstrates a PCO2 of 88 and the patient continued to decline despite our attempts and he was intubated by the emergency department physician. When I evaluated the patient, the patient is artery recently intubated and sedated. No additional information is available from the patient. Chest x-ray demonstrates questionable right lung atelectasis versus possible early consolidation, possible viral/atypical pneumonia. Subjective: 05/07: no improvements. remains on vent. discussed with at length: apparently he has had significant functional decline since stroke in 12/2016, and has had multiple repeat hospitalizations, including SNF, LTAC, rehab level care, and has continued to decline. this likely represents a slow terminal decline in function. expressed my concern that he may not get back to functional status. goals remain aggressive for now. sputum growing staph. 2: no meaningful improvements. more hypercarbic today: pco2 back in the 70s. sputum growing staph aureus, will narrow spectrum, but leave atypical coverage given COPD and clinical course that may suggest atypical pneumonia. palliative consulted. 2: no significant improvements. wbc still elevated, but may be steroid response. still altered with metabolic encephalopathy. weaning sedation. failing cpap trials. has required LTAC level care for slow wean before: may require again. 05/10: encephalopathy persists. most likely hypoactive delirium. failing CPAP trials for delirium and too somnolent to pass successfully. may require tracheostomy if goals remain aggressive. 05/11 Patient remains intubated and on Precedex drip. Afebrile. 05/12 Patient remains intubated and sedated. On Heparin drip. T:99.7 last night. 05/13 Patient remains intubated sedated with Fentanyl drip. T: 100.8. C-diff PCR positive last night. Started on Amio drip last night for Afib RVR 05/14 No events overnight. Off sedation. CT brain yesterday showed old right sided CVA otherwise no acute process. Afebrile. WBC is trending down. Objective Vital Signs Date Time Temp Pulse Resp B/P (MAP) Pulse Ox O2 Delivery O2 Flow Rate FiO2 05/14/17 06:00 77 05/14/17 04:00 70 05/14/17 04:00 98.3 15 175/92 (119) 94 Intake and Output 05/14/17 05/14/17 05/15/17 08:00 16:00 00:00 Intake Total 600 ml Output Total 280 ml Balance 320 ml Result Diagram: 05/14/17 0419 05/14/17 0419 Other Results Laboratory Tests Test 05/13/17 12:00 05/13/17 17:06 05/13/17 23:34 05/14/17 04:19 Activated Partial Thromboplast Time 81.4 SEC 33.3 SEC 64.8 SEC Blood Urea Nitrogen 59 MG/DL 63 MG/DL Creatinine 1.60 MG/DL 1.95 MG/DL Random Glucose 165 MG/DL 149 MG/DL Calcium Level 8.2 MG/DL 8.5 MG/DL Sodium Level 135 MEQ/L 136 MEQ/L Potassium Level 5.2 MEQ/L 5.2 MEQ/L Chloride Level 101 MEQ/L 101 MEQ/L Carbon Dioxide Level 24.3 MEQ/L 24.9 MEQ/L Anion Gap 10 MEQ/L 10 MEQ/L Estimat Glomerular Filtration Rate 43 ML/MIN 34 ML/MIN White Blood Count 41.8 TH/MM3 Red Blood Count 4.54 MIL/MM3 Hemoglobin 13.8 GM/DL Hematocrit 42.3 % Mean Corpuscular Volume 93.3 FL Mean Corpuscular Hemoglobin 30.4 PG Mean Corpuscular Hemoglobin Concent 32.6 % Red Cell Distribution Width 14.3 % Platelet Count 179 TH/MM3 Mean Platelet Volume 11.6 FL CBC Comment AUTO DIFF Phosphorus Level 5.5 MG/DL Magnesium Level 2.9 MG/DL Imaging Last Impressions Head CT 05/12/17 0000 Signed Impressions: Service Date/Time: Saturday, May 13, 2017 14:12 - CONCLUSION: Moderate motion artifact, 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 Enoch Phillips MD FACR Abdomen/Pelvis CT 05/12/17 0000 Signed Impressions: Service Date/Time: Saturday, May 13, 2017 14:23 - CONCLUSION: 1. Ascites with small shrunken liver and prominent gallbladder. 2. There no inflammatory changes around the gallbladder 3. I do not see etiology for leukocytosis abdominal pain. 4. Mild bowel wall thickening sigmoid colon Enoch Phillips MD FACR Lower Extremity Ultrasound 05/11/17 Signed Impressions: Service Date/Time: Thursday, May 11, 2017 10:33 - CONCLUSION: 1. Occlusive thrombus within the left proximal deep femoral vein as well as nonocclusive thrombus within the left common femoral, greater saphenous origin and bifurcation of the superficial femoral and deep femoral veins. 2. No deep venous thrombosis within the right lower extremity. Roque Hodge MD Chest X-Ray 05/11/17 0000 Signed Impressions: Service Date/Time: Thursday, May 11, 2017 07:57 - CONCLUSION: Scattered bibasilar atelectasis and/or infiltrates. Small left pleural effusion. Cardiomegaly. Roque Hodge MD CT Angiography 05/11/17 0000 Signed Impressions: Service Date/Time: Thursday, May 11, 2017 16:55 - CONCLUSION: Significant bibasilar consolidative changes or trace pleural effusion. Negative for central pulmonary emboli. Enoch Phillips MD FACR Objective Remarks GENERAL: Patient is 71 yo intubated SKIN: Warm and dry. HEAD: Normocephalic. EYES: No scleral icterus. No injection or drainage. NECK: Supple, trachea midline. No JVD or lymphadenopathy. CARDIOVASCULAR: Regular rate and rhythm without murmurs, gallops, or rubs. RESPIRATORY: Breath sounds equal bilaterally. No accessory muscle use. GASTROINTESTINAL: Abdomen soft, non-tender, nondistended. MUSCULOSKELETAL: No cyanosis, +edema. Neuro: Intubated doesn't track or follow commands. A/P Assessment and Plan Neuro: Encephalopathy Off sedation. Monitor neuro status CT brain : old right CVA otherwise no acute process For EEG today Pulm: Acute Severe COPD Exacerbation Acute hypoxic and hypercarbic respiratory failure Healthcare Associated Pneumonia: Staph aureus On PRVC/AV RR 18, TV 500, IT:1.0, PEEP:10 FIO2 50% Continue with vent support keep sat >92% Bronchodilators, ICU vent bundle. Daily SBT as kashmir when his oxygenation is better On Solumederol 60mg Q12 CTA chest showed no PE, consolidative changes at bases CV: Atrial fibrillation with rapid ventricular response On Amio drip - Monitor HR and BP keep MAP>65mmHg On Cardizem 60mg Q6, Lopressor 50mg Q12, Clonidine 0.2mg Q8 Echo showed EF 55-60% : Monitor renal function, I/O's, electrolytes replacement per protocol. Increase NS@75ml/hr, d/c Lasix GI: Continue tube feeds- Jevity 1.5 @60ml/hr, On Pepcid for GI prophylaxis CT abd/pelvis: Ascites with small shrunken liver and prominent gallbladder. There no inflammatory changes around the gallbladder ID: 05/06 Sputum cx: Staph Aureus sensitive to Rocephin Positive C-diff PCR Continue abx(Rocephin, Azithromycin, IV Flagyl, PO Vanco).monitor for signs of infections ( Fever, WBC) WBC is trending down Sputum: MRSA sensitive for Rocephin, follow up sputum cx C-diff PCR positive 05/12. ID is following Strep pneumonia and Legionella urinary Ag negative on 05/07 Nasal washing negative for Flu on 05/06 Heme: Monitor CBC Endo: SSI for glycemic control GI prophylaxis- Pepcid DVT prophylaxis- SCD, Heparin drip Doppler US LE :Occlusive thrombus within the left proximal deep femoral vein as well as nonocclusive thrombus within the left common femoral, greater saphenous origin and bifurcation of the superficial femoral and deep femoral veins. No DVT within the right lower extremity. Palliative care is following Poor prognosis given resp failure, encephalopathy , worsening renal function , pneumonia and C-diff colitis. CCT 30 mins Juan Han MD May 14, 2017 07:13
[2017-05-14] MEDS ORDERED: SODIUM POLYSTYRENE SULFONATE SUSP 15 GM/60 ML CUP PO ONE (07:15)
[2017-05-14 07:33] LABS: BANDS 7 % (0-6); LYMPHOCYTES 1 % (9-44); METAMYELOCYTES 3 % (0-1); MONOCYTES 1 % (0-8); MYELOCYTES 1 % (0-0); POLYS (SEG NEUTROPHILS) 87 % (16-70)
[2017-05-14] MEDS ORDERED: PHARMACY ORDERED LAB ONE (08:45)
[2017-05-14] MEDS: methylPREDNISolone SOD SUCC 125 MG/2 ML VIAL IV PUSH SCH ×2 (09:17→21:21)
[2017-05-14] MEDS: FUROSEMIDE 40 MG/4 ML VIAL IV PUSH SCH (09:18)
[2017-05-14] MEDS: FAMOTIDINE 20 MG/2 ML VIAL IV PUSH SCH (09:18)
[2017-05-14] MEDS: cefTRIAXone INJ 1,000 MG in SODIUM CHLORIDE 0.9% INJ 100 ML IV SCH (09:19)
[2017-05-14] MEDS: VANCOMYCIN 500 MG VIAL (FOR ORAL USE ONLY) PO SCH ×4 (09:19→21:21)
[2017-05-14] MEDS: METOPROLOL TARTRATE 50 MG TAB PO SCH ×2 (09:20→21:21)
--- NOTE | 2017-05-14 11:15 | HHI.HCPN ---
Reason for visit a. To assist with evaluation and management of symptoms including: Shortness of breath, debility b. To assist medical decision maker(s) with: better understanding of current medical conditions; weighing benefits/burdens of medical treatment options; making medical treatment decisions. . Subjective/Interval History Patient seen and examined in his room in [facility]. Has been on CPAP for 3 hours this morning, continues to tolerate spontaneous breathing trials on 50% FiO2. Patient arouses to vigorous verbal stimuli off sedation, follows some simple commands. 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 EEG later today. Echocardiogram 05/13/17 LV systolic function normal with EF 55-60%. 05/11/17 occlusive thrombus within the left proximal deep femoral vein as well as nonocclusive thrombus within the left common femoral great saphenous origin 05/11/17: Chest x-ray revealed scattered bibasilar atelectasis and/or infiltrates and a small left pleural effusion. Ultrasound to the left lower extremity revealed an occlusive thrombus within the left proximal deep femoral vein as well as nonocclusive thrombus within the left common femoral, greater saphenous origin and bifurcation of the superficial femoral and deep femoral veins. No DVT to RLE. CT Angiogram showed bibasilar consolidative changes or trace pleural effusion; negative for central pulmonary emboli. Afebrile. Persistent leukocytosis but trending downward - WBC of 41.8 Sputum culture on 05/06/17 with staph aureus sensitive to Rocephin; follow-up sputum culture negative to date. C-diff PCR positive. 05/12/17 - now on IV Flagyl, Rocephin and PO Vancomycin. Infectious disease now following. Worsening renal function. BUN: 49, creatinine 1.95 (increased from 0.66 on ) and GFR: 34. Nephrology was consulted for recommendations. Palliative care met with family on 05/12/2017. At that time, the family verbalized understanding that the patient was critically ill. Ms. Stone remained cautiously hopeful stating, "He was supposed to a few times before but he always came through." Patient's son responded to his mother stating, " Yea - but his is a lot weaker now than he was in the past. This might be different" Goals remain aggressive up to the point of cardiopulmonary resuscitation; family stated they have have had multiple conversations with the patient over the years and know "without a doubt" that the patient would not want to proceed with trach and PEG. The patient's son had some questions about what would happen if his father was unable to wean from the ventilator. We briefly discussed passionate withdrawal artificial life support; hospice was introduced. . Family/friend interactions Spoke with patient's Geneva via telephone as she was not present at the time of my examination. She was able to speak with ID today and states she feels she has a good understanding of her 's medical condition. She acknowledges that the patient has been hospitalized for 3 out of the past 6 months; she is aware that he has become progressively weaker and he will likely not regain his previously functional baseline prior to CVA in July,. She reiterates medical treatment goals remain aggressive up to the point of cardiopulmonary resuscitation. Family will not proceed with trach and PEG if indicated and will likely transition to comfort focused care at that time. . Advance Directives Living Will: Copy in medical record Health Care Surrogate: Copy in medical record Advance Directive Specifics Date completed: 12/07/2002 . Health Care Surrogate(s): Health Care Surrogate- Spouse- Geneva Stone [phone] 1st and 2nd alternate respectively. Arsenio Stone (son) [phone] Zenia Poon (daughter) [phone] . Documented care wishes: See scanned copy on EMR . Objective Vital Signs Date Time Temp Pulse Resp B/P (MAP) Pulse Ox O2 Delivery O2 Flow Rate FiO2 05/14/17 08:00 86 05/14/17 07:44 50 05/14/17 07:44 96 50 05/14/17 07:00 73 118/67 05/14/17 06:00 77 05/14/17 04:00 73 05/14/17 04:00 70 05/14/17 04:00 98.3 73 15 175/92 (119) 94 05/14/17 03:52 96 60 05/14/17 02:00 74 05/14/17 00:12 96 70 05/14/17 00:00 98.6 71 16 138/90 (106) 96 05/14/17 00:00 71 05/14/17 00:00 70 05/13/17 22:00 73 05/13/17 20:00 85 05/13/17 20:00 98.3 85 19 168/101 (123) 96 05/13/17 20:00 70 05/13/17 19:56 94 70 05/13/17 18:00 85 05/13/17 16:21 92 80 05/13/17 16:00 75 05/13/17 16:00 80 05/13/17 16:00 97.8 89 18 139/90 (106) 92 05/13/17 15:56 92 147/86 05/13/17 14:00 100 100 05/13/17 14:00 93 05/13/17 13:00 50 05/13/17 12:39 95 50 05/13/17 12:15 90 17 95 05/13/17 12:10 90 18 167/81 (109) 95 05/13/17 12:00 98.6 89 18 158/85 (109) 95 05/13/17 12:00 89 18 158/85 (109) 95 05/13/17 12:00 89 05/13/17 11:50 89 18 156/86 (109) 94 05/13/17 11:45 79 18 96 05/13/17 11:40 80 18 129/60 (83) 96 05/13/17 11:31 94 18 174/80 (111) 96 05/13/17 11:30 90 18 96 05/13/17 11:20 82 18 142/71 (94) 94 05/13/17 11:15 85 18 94 05/13/17 11:10 82 18 151/78 (102) 94 05/13/17 11:00 82 18 148/76 (100) 94 05/13/17 10:50 85 18 145/70 (95) 94 Intake & Output 05/14/17 05/14/17 07:00 19:00 Intake Total 600 ml Output Total 280 ml Balance 320 ml Other 600 ml Output Urine Total 240 ml Stool Total 40 ml # Bowel Movements 1 . Physical Exam CONSTITUTIONAL/GENERAL: This is a frail, elderly male patient who is off sedation and tolerating CPAP on exam. TUBES/LINES/DRAINS: ETT, OGT, PIV, FC, Rectal tube SKIN: Hand are swollen and weeping. + Petechiae. Ecchymoses on upper extremities. HEAD: Atraumatic. Normocephalic. EYES: Pupils equal, round, sluggish. No scleral icterus. No injection or drainage. Fundi not examined. ENT: Sedated. Nose without bleeding or purulent drainage. NECK: Trachea midline. Supple, nontender. CARDIOVASCULAR: Atrial fibrillation, rate controlled. Peripheral pulses symmetric. RESPIRATORY/CHEST: Tolerating CPAP trials on 50% FiO2. Breath sounds diminished bilaterally. GASTROINTESTINAL: Abdomen soft, non-tender. No guarding. Bowel sounds present. GENITOURINARY: Without palpable bladder distension. Weldon catheter in place. MUSCULOSKELETAL: Extremities without clubbing or cyanosis. + Edema. Bilateral lower extremities are cool to touch, feet are mottled. NEUROLOGICAL: Arouses to vigorous verbal stimuli auscultation, inconsistently follows simple commands. PSYCHIATRIC: Unable to assess, intubated on mechanical ventilation and fentanyl infusion. . Diagnostic Tests Laboratory Laboratory Tests Test 05/11/17 14:13 05/11/17 20:08 05/12/17 10:15 05/12/17 13:50 Prothrombin Time 11.1 SEC (9.8-11.6) Prothromb Time International Ratio 1.1 RATIO Activated Partial Thromboplast Time 21.9 SEC (24.3-30.1) 62.8 SEC (24.3-30.1) 132.6 SEC (24.3-30.1) 49.7 SEC (24.3-30.1) White Blood Count 33.5 TH/MM3 (4.0-11.0) Red Blood Count 4.73 MIL/MM3 (4.50-5.90) Hemoglobin 14.8 GM/DL (13.0-17.0) Hematocrit 44.0 % (39.0-51.0) Mean Corpuscular Volume 93.0 FL (80.0-100.0) Mean Corpuscular Hemoglobin 31.3 PG (27.0-34.0) Mean Corpuscular Hemoglobin Concent 33.6 % (32.0-36.0) Red Cell Distribution Width 14.0 % (11.6-17.2) Platelet Count 141 TH/MM3 (150-450) Mean Platelet Volume 10.5 FL (7.0-11.0) Neutrophils (%) (Auto) 96.4 % (16.0-70.0) Lymphocytes (%) (Auto) 1.1 % (9.0-44.0) Monocytes (%) (Auto) 1.5 % (0.0-8.0) Eosinophils (%) (Auto) 0.0 % (0.0-4.0) Basophils (%) (Auto) 1.0 % (0.0-2.0) Neutrophils # (Auto) 32.3 TH/MM3 (1.8-7.7) Lymphocytes # (Auto) 0.4 TH/MM3 (1.0-4.8) Monocytes # (Auto) 0.5 TH/MM3 (0-0.9) Eosinophils # (Auto) 0.0 TH/MM3 (0-0.4) Basophils # (Auto) 0.3 TH/MM3 (0-0.2) CBC Comment AUTO DIFF Differential Total Cells Counted 100 Neutrophils % (Manual) 76 % (16-70) Band Neutrophils % 21 % (0-6) Lymphocytes % 1 % (9-44) Monocytes % 2 % (0-8) Neutrophils # (Manual) 32.5 TH/MM3 (1.8-7.7) Differential Comment FINAL DIFF MANUAL Platelet Estimate LOW (NORMAL) Platelet Morphology Comment NORMAL (NORMAL) Red Cell Morphology Comment NORMAL (NORMAL) Hematology Comments Blood Urea Nitrogen 38 MG/DL (7-18) Creatinine 0.66 MG/DL (0.60-1.30) Random Glucose 190 MG/DL (74-106) Calcium Level 8.0 MG/DL (8.5-10.1) Phosphorus Level 1.6 MG/DL (2.5-4.9) Magnesium Level 2.6 MG/DL (1.5-2.5) Sodium Level 140 MEQ/L (136-145) Potassium Level 4.3 MEQ/L (3.5-5.1) Chloride Level 105 MEQ/L (98-107) Carbon Dioxide Level 27.5 MEQ/L (21.0-32.0) Anion Gap 8 MEQ/L (5-15) Estimat Glomerular Filtration Rate 118 ML/MIN (>89) Test 05/12/17 17:30 05/12/17 22:11 05/13/17 05:02 05/13/17 12:00 Stool C. difficile Toxin (PCR) POSITIVE (NEGATIVE) Stl C. difficile Toxin Epiderm 027 PRESUMPTIVE POSITIVE Activated Partial Thromboplast Time 78.0 SEC (24.3-30.1) 55.0 SEC (24.3-30.1) 81.4 SEC (24.3-30.1) White Blood Count 46.6 TH/MM3 (4.0-11.0) Red Blood Count 5.18 MIL/MM3 (4.50-5.90) Hemoglobin 15.9 GM/DL (13.0-17.0) Hematocrit 48.9 % (39.0-51.0) Mean Corpuscular Volume 94.5 FL (80.0-100.0) Mean Corpuscular Hemoglobin 30.7 PG (27.0-34.0) Mean Corpuscular Hemoglobin Concent 32.5 % (32.0-36.0) Red Cell Distribution Width 14.2 % (11.6-17.2) Platelet Count 167 TH/MM3 (150-450) Mean Platelet Volume 11.2 FL (7.0-11.0) Blood Urea Nitrogen 49 MG/DL (7-18) Creatinine 1.31 MG/DL (0.60-1.30) Random Glucose 163 MG/DL (74-106) Calcium Level 8.5 MG/DL (8.5-10.1) Sodium Level 136 MEQ/L (136-145) Potassium Level 5.1 MEQ/L (3.5-5.1) Chloride Level 103 MEQ/L (98-107) Carbon Dioxide Level 24.2 MEQ/L (21.0-32.0) Anion Gap 9 MEQ/L (5-15) Estimat Glomerular Filtration Rate 54 ML/MIN (>89) Test 05/13/17 17:06 05/13/17 23:34 05/14/17 04:19 Blood Urea Nitrogen 59 MG/DL (7-18) 63 MG/DL (7-18) Creatinine 1.60 MG/DL (0.60-1.30) 1.95 MG/DL (0.60-1.30) Random Glucose 165 MG/DL (74-106) 149 MG/DL (74-106) Calcium Level 8.2 MG/DL (8.5-10.1) 8.5 MG/DL (8.5-10.1) Sodium Level 135 MEQ/L (136-145) 136 MEQ/L (136-145) Potassium Level 5.2 MEQ/L (3.5-5.1) 5.2 MEQ/L (3.5-5.1) Chloride Level 101 MEQ/L (98-107) 101 MEQ/L (98-107) Carbon Dioxide Level 24.3 MEQ/L (21.0-32.0) 24.9 MEQ/L (21.0-32.0) Anion Gap 10 MEQ/L (5-15) 10 MEQ/L (5-15) Estimat Glomerular Filtration Rate 43 ML/MIN (>89) 34 ML/MIN (>89) Activated Partial Thromboplast Time 33.3 SEC (24.3-30.1) 64.8 SEC (24.3-30.1) White Blood Count 41.8 TH/MM3 (4.0-11.0) Red Blood Count 4.54 MIL/MM3 (4.50-5.90) Hemoglobin 13.8 GM/DL (13.0-17.0) Hematocrit 42.3 % (39.0-51.0) Mean Corpuscular Volume 93.3 FL (80.0-100.0) Mean Corpuscular Hemoglobin 30.4 PG (27.0-34.0) Mean Corpuscular Hemoglobin Concent 32.6 % (32.0-36.0) Red Cell Distribution Width 14.3 % (11.6-17.2) Platelet Count 179 TH/MM3 (150-450) Mean Platelet Volume 11.6 FL (7.0-11.0) CBC Comment AUTO DIFF Differential Total Cells Counted 100 Neutrophils % (Manual) 87 % (16-70) Band Neutrophils % 7 % (0-6) Lymphocytes % 1 % (9-44) Monocytes % 1 % (0-8) Neutrophils # (Manual) 41.0 TH/MM3 (1.8-7.7) Metamyelocytes 3 % (0-1) Myelocytes 1 % (0-0) Differential Comment FINAL DIFF MANUAL Platelet Estimate NORMAL (NORMAL) Platelet Morphology Comment NORMAL (NORMAL) Phosphorus Level 5.5 MG/DL (2.5-4.9) Magnesium Level 2.9 MG/DL (1.5-2.5) . Result Diagram: 05/14/17 0419 05/14/17 0419 Microbiology Microbiology Date/Time Source Procedure Growth Status 05/12/17 17:30 Stool Stool Stool Occult Blood ([facility]) - Final HEMOCCULT POSITIVE Complete 05/12/17 12:00 Sputum Endotracheal Gram Stain - Final Resulted 05/12/17 12:00 Sputum Endotracheal Sputum Culture - Preliminary HEAVY GROWTH NORMAL RESPIRATORY ABDIFATAH... Resulted . 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 Enoch Phillips MD FACR Abdomen/Pelvis CT 05/12/17 0000 Signed Impressions: Service Date/Time: Saturday, May 13, 2017 14:23 - CONCLUSION: 1. Ascites with small shrunken liver and prominent gallbladder. 2. There no inflammatory changes around the gallbladder 3. I do not see etiology for leukocytosis abdominal pain. 4. Mild bowel wall thickening sigmoid colon Enoch Phillips MD FACR . Procedures 05/06/2017- Intubation . Assessment and Plan Disease Oriented Problem List: (1) COPD with acute exacerbation (2) Healthcare-associated pneumonia (3) Atrial fibrillation with RVR (4) Hypernatremia Symptom Scale: (1) Shortness of breath 0-10 Scale: Unable to quantify Comment: Hx of COPD. Currently being treated for pneumonia. On Ventilator. . (2) Debility 0-10 Scale: Unable to quantify Pertinent Non-Medical Issues Psychosocial: Originally from [place], has 4 children 3 sons one daughter from a previous marriage. to current Geneva Stone Spiritual: Voodoo but not jainism Legal:Geneva Stone [phone] and primary healthcare surrogate 1st and 2nd alternate repectively. Arsenio Stone (son) [phone] Zenia Ayah (daughter) [phone] Ethical issues impacting care: None Important Contacts Geneva Stone [phone] 1st and 2nd alternate repectively. Arsenio Stone (son) [phone] Zenia Poon (daughter) [phone] Prognosis Prognosis is guarded for current hospitalization, poor overall. History of debility and gradual decline following stroke in July 2016. History of recurrent aspiration pneumonia, COPD, confusion, extended nursing/ rehabilitation facility stay. If patient were to survive current hospitalization, at risk of continuing rehospitalization infection, wounds, and challenges to care secondary to agitation. . Code Status: No Code Plan * NO CODE - DNR/DNI * Legal decision maker: Patient is currently intubated on mechanical ventilation and is not able to make his own medical decisions. It is unknown at this time if he will be able to regain capacity to make medical decisions. Patient's health care surrogate is his spouse, Jesusita Stone and his Ist alternate HCS is Arsenio Stone (son) and 2nd alternate HCS is Zenia Poon ( daughter). * Goals: Aggressive short of no code * Discussed patient with bedside nurse (Missy), Dr. Wells and Dr. Saunders * SYMPTOMS: == Shortness of breath: Multifactorial. Patient has history of COPD. Came in with complaints of shortness of breath requiring intubation. Chest x-ray revealing scattered bibasilar atelectasis/infiltrates and small left pleural effusion. CT angiogram showed no evidence of PE. On Duonebs and Antibiotics. No recommendations. == Debility: Progressive. Patient has continued to decline since her last hospitalization in July, for a stroke. Patient has had various stays at rehabilitation and nursing facilities. Currently intubated. May benefit from a Physical therapy consultation if goals remain aggressive. * Palliative care will continue to follow the patient during hospital course as condition evolves, to assist patient/decision-maker with understanding of their medical conditions, weighing benefits/burdens of treatment options, for clarification of goals of treatment. Additionally will assist with any symptoms of palliative concern. . Attestation To help prompt me to consider important information that might be impacting today's encounter and assessment, information from prior notes written by myself or my colleagues may have been "brought forward" into today's note. My signature on this note, however, is an attestation that I personally performed the exam, history, and/or decision-making noted today, and, unless otherwise indicated, the interactions with patient, family, and staff as well as the review of records all occurred today. I also attest that the listed assessment and stated plan reflect my best clinical judgment today based on the combination of historical information, prior notes, and today's exam/ interactions. When time spent is documented, it refers only to time spent today by the signer, or if indicated, combined time spent today by collaborating physician/nurse practitioner. . Paola Castaneda May 14, 2017 11:15
--- NOTE | 2017-05-14 12:26 | HHI.IDPN ---
Note Infectious Disease Note Patient is somnolent. On the vent. at bedside. D/W RN. Afebrile. Moderate green secretions suctioned. Presented to the emergency department on 05/06/2017 with shortness of breath and chest pain. The patient has a history of COPD. PAST MEDICAL HISTORY 1. COPD. 2. Congestive heart failure. 3. Hypercholesteremia. 4. Obstructive sleep apnea. 5. Kidney stones. 6. History of coronary stent. 7. History of CVA. 8. Tonsillectomy. ALLERGIES No known drug allergies. The patient is allergic to HORNET VENOM. ANTIBIOTICS: 1. Vancomycin p.o. 2. Metronidazole IV. 3. Ceftriaxone. SOCIAL HISTORY No tobacco, no alcohol, no illicit drugs noted. FAMILY HISTORY Unable to obtain. REVIEW OF SYSTEMS Unable to obtain because the patient is on the ventilator. OBJECTIVE: Vital Signs Date Time Temp Pulse Resp B/P (MAP) Pulse Ox O2 Delivery O2 Flow Rate FiO2 05/14/17 11:47 95 50 05/14/17 10:00 78 05/14/17 08:00 50 05/14/17 08:00 99.3 86 16 152/81 (104) 95 05/14/17 08:00 86 05/14/17 07:44 50 05/14/17 07:44 96 50 05/14/17 07:00 73 118/67 05/14/17 06:00 77 05/14/17 04:00 73 05/14/17 04:00 70 05/14/17 04:00 98.3 73 15 175/92 (119) 94 05/14/17 03:52 96 60 05/14/17 02:00 74 05/14/17 00:12 96 70 05/14/17 00:00 98.6 71 16 138/90 (106) 96 05/14/17 00:00 71 05/14/17 00:00 70 05/13/17 22:00 73 05/13/17 20:00 85 05/13/17 20:00 98.3 85 19 168/101 (123) 96 05/13/17 20:00 70 05/13/17 19:56 94 70 05/13/17 18:00 85 05/13/17 16:21 92 80 05/13/17 16:00 75 05/13/17 16:00 80 05/13/17 16:00 97.8 89 18 139/90 (106) 92 05/13/17 15:56 92 147/86 05/13/17 14:00 100 100 05/13/17 14:00 93 05/13/17 13:00 50 05/13/17 12:39 95 50 Laboratory Tests Test 05/13/17 17:06 05/13/17 23:34 05/14/17 04:19 Blood Urea Nitrogen 59 MG/DL 63 MG/DL Creatinine 1.60 MG/DL 1.95 MG/DL Random Glucose 165 MG/DL 149 MG/DL Calcium Level 8.2 MG/DL 8.5 MG/DL Sodium Level 135 MEQ/L 136 MEQ/L Potassium Level 5.2 MEQ/L 5.2 MEQ/L Chloride Level 101 MEQ/L 101 MEQ/L Carbon Dioxide Level 24.3 MEQ/L 24.9 MEQ/L Anion Gap 10 MEQ/L 10 MEQ/L Estimat Glomerular Filtration Rate 43 ML/MIN 34 ML/MIN Activated Partial Thromboplast Time 33.3 SEC 64.8 SEC White Blood Count 41.8 TH/MM3 Red Blood Count 4.54 MIL/MM3 Hemoglobin 13.8 GM/DL Hematocrit 42.3 % Mean Corpuscular Volume 93.3 FL Mean Corpuscular Hemoglobin 30.4 PG Mean Corpuscular Hemoglobin Concent 32.6 % Red Cell Distribution Width 14.3 % Platelet Count 179 TH/MM3 Mean Platelet Volume 11.6 FL CBC Comment AUTO DIFF Differential Total Cells Counted 100 Neutrophils % (Manual) 87 % Band Neutrophils % 7 % Lymphocytes % 1 % Monocytes % 1 % Neutrophils # (Manual) 41.0 TH/MM3 Metamyelocytes 3 % Myelocytes 1 % Differential Comment FINAL DIFF MANUAL Platelet Estimate NORMAL Platelet Morphology Comment NORMAL Phosphorus Level 5.5 MG/DL Magnesium Level 2.9 MG/DL PHYSICAL EXAMINATION GENERAL: On the ventilator. HEENT: Pupils are reactive to light. Extraocular movements appear grossly intact. No icterus. No conjunctival erythema. Oropharynx intubated. NECK: No adenopathy. No swelling. LUNGS: Clear. HEART: Irregular rate and rhythm. 1/6 systolic murmur at the left sternal border. ABDOMEN: Bowel sounds diminished. Soft. Obese. EXTREMITIES: Diffuse ecchymosis and trace edema of the extremities. Pulses of the extremities are normal. NEUROLOGIC: Unable to assess. PSYCHIATRIC: Unable to assess. IMPRESSION 1. C. difficile colitis. Patient with 027 positive strain. 2. Pneumonia due to staph aureus. 3. Acute respiratory failure. 4. Acute renal disease. 5. Leukocytosis. WBC still elevated. RECOMMENDATIONS 1. Continue oral vancomycin for C. difficile. 2. Continue IV metronidazole for C. difficile. 3. Continue ceftriaxone. 4. Monitor white blood cell count. 5. Follow-up on the new sputum culture. 6. Monitor clinical status. Jaime Toribio MD May 14, 2017 12:26
[2017-05-14] MEDS ORDERED: FUROSEMIDE 40 MG/4 ML VIAL IV PUSH ONE (12:45)
--- NOTE | 2017-05-14 12:56 | PD.CONS ---
HPI Service Nephrology Consult Requested By Reason for Consult Acute Renal Failure Primary Care Physician Unknown History of Present Illness This is a 71 y/o male, PMH listed below. He was admitted 05/06 for chest pain and respiratory distress, intubated soon after arrival. He is being treated for C diff, PNA, and MSSA in sputum. His WBC are over 40K. He has A fib, and is on heparin and amiodarone gtts. His creatinine was 0.6 two days ago. Yesterday it was 1.3 and later 1.6, and today is 1.95. He has some generalized edema, his urine output is marginal. He was on IV vancomycin and his trough level was 26 on 05/08. We were consulted to assist with management. (Dominique Caballero) Review of Systems ROS Limitations: Intubated, Unresponsive (Dominique Caballero) Past Family Social History Allergies: Coded Allergies: hornet venom (Unverified Allergy, Severe, Swelling, 12/10/16) Past Medical History Childhood asthma Congestive heart failure, unknown type High Cholesterol CVA Kidney stones Bilateral shoulder pain COPD Obstructive sleep apnea Past Surgical History Tonsillectomy Reported Medications Klor-Con 10 (Potassium Chloride) 10 Meq Tab 10 Meq PO DAILY 30 Days Niacin 100 Mg Tab 100 Mg PO HS 30 Days Thera/Beta-Carotene (Multiple Vitamin) 1 Tab Tab 1 Tab PO DAILY 30 Days Metoprolol Tartrate 25 Mg Tab 12.5 Mg PO DAILY 30 Days Lisinopril 20 Mg Tab 20 Mg PO BID 30 Days Gabapentin 100 Mg Cap 100 Mg PO BID 30 Days Furosemide 20 Mg Tab 20 Mg PO DAILY 30 Days Pradaxa (Dabigatran) 150 Mg Cap 150 Mg PO BID 30 Days Vitamin D3 (Cholecalciferol) 5,000 Unit Cap 5,000 Units PO DAILY 30 Days Norvasc (Amlodipine Besylate) 5 Mg Tab 5 Mg PO DAILY 30 Days Atorvastatin (Atorvastatin Calcium) 20 Mg Tab 20 Mg PO HS Pradaxa (Dabigatran) 150 Mg Cap 150 Mg PO BID [shower chair] Ea [transport chair] Ea Walker Rolling/GetGo (Device) 1 Mis Mis 1 Ea .ROUTE DIRECTED Lipitor (Atorvastatin Calcium) 40 Mg Tab 40 Mg PO HS Active Ordered Medications Current Medications Medications (Trade) Dose Ordered Sig/Pauline Route Start Time Stop Time Status Last Admin (NS Flush) 2 ml UNSCH PRN IVF 05/06/17 08:15 05/10/17 21:19 Potassium Chloride 100 ml @ 50 mls/hr Q2H PRN IV 05/06/17 14:15 Potassium Chloride 100 ml @ 50 mls/hr Q2H PRN IV 05/06/17 14:15 (K-Lyte Cl Eff) 50 meq UNSCH PRN PO 05/06/17 14:15 Potassium Chloride 100 ml @ 25 mls/hr UNSCH PRN IV 05/06/17 14:15 Potassium Chloride 100 ml @ 50 mls/hr Q2H PRN IV 05/06/17 14:15 Magnesium Sulfate 4 gm/Sodium Chloride 100 ml @ 50 mls/hr UNSCH PRN IV 05/06/17 14:15 (Mag-Ox) 800 mg UNSCH PRN PO 05/06/17 14:15 Magnesium Sulfate 2 gm/Sodium Chloride 100 ml @ 50 mls/hr UNSCH PRN IV 05/06/17 14:15 (K-Phos) 2,000 mg Q4H PRN PO 05/06/17 14:15 05/12/17 17:08 Sodium Phosphate 30 mmol/Sodium Chloride 250 ml @ 42 mls/hr UNSCH PRN IV 05/06/17 14:15 (K-Phos) 2,000 mg UNSCH PRN PO/TUBE 05/06/17 14:15 Potassium Phosphate 30 mmol/ Sodium Chloride 260 ml @ 42 mls/hr UNSCH PRN IV 05/06/17 14:15 (Peridex 0.12% Liq) 15 ml BID@08,20 MT 05/06/17 20:00 05/14/17 01:28 (SoluMEDROL INJ) 60 mg Q12HR IV PUSH 05/06/17 21:00 05/14/17 09:17 (Duoneb Neb) 1 ampule Q2HR NEB PRN INH 05/06/17 14:15 05/07/17 21:49 Miscellaneous Information Patient in critical care unit? Ass... Q361D .XX 05/08/17 21:15 05/08/17 21:15 (D50w (Vial) Inj) 50 ml UNSCH PRN IV PUSH 05/11/17 07:45 (Glucagon Inj) 1 mg UNSCH PRN OTHER 05/11/17 07:45 (NovoLIN R SUPPLEMENTAL SCALE) 1 Q4HR SQ 05/11/17 08:00 05/14/17 08:00 Heparin Sodium/ Dextrose 250 ml @ 18 mls/hr TITRATE PRN IV 05/11/17 13:00 05/13/17 13:22 Fentanyl Citrate 250 ml @ 5 mls/hr TITRATE PRN IV 05/12/17 17:00 05/13/17 09:12 Amiodarone HCl 450 mg/Sodium Chloride 259 ml @ 33.33 mls/ hr Q7H47M PRN IV 05/12/17 19:35 05/13/17 03:29 Metronidazole 100 ml @ 100 mls/hr Q8H IV 05/13/17 09:30 05/14/17 09:40 (VANCOMYCIN for oral use only) 125 mg QID PO 05/13/17 09:30 05/14/17 09:19 (Cardizem) 60 mg Q6H OG-TUBE 05/13/17 09:30 05/14/17 09:15 (Lasix Inj) 40 mg DAILY IV PUSH 05/13/17 09:30 05/14/17 09:18 (Lopressor) 50 mg Q12HR PO 05/13/17 09:30 05/14/17 09:20 Ceftriaxone Sodium 1000 mg/ Sodium Chloride 100 ml @ 200 mls/hr Q24H IV 05/13/17 09:30 05/14/17 09:19 Sodium Chloride 1,000 ml @ 75 mls/hr [id number] IV 05/13/17 09:30 05/13/17 11:39 (Catapres) 0.2 mg Q8H PO 05/13/17 10:30 05/14/17 09:15 (Pepcid Inj) 20 mg DAILY IV PUSH 05/15/17 09:00 Family History Unable to obtain Social History Unable to obtain (Dominique Caballero) Physical Exam Vital Signs Vital Signs Date Time Temp Pulse Resp B/P (MAP) Pulse Ox O2 Delivery O2 Flow Rate FiO2 05/14/17 11:47 95 50 05/14/17 10:00 78 05/14/17 08:00 50 05/14/17 08:00 99.3 86 16 152/81 (104) 95 05/14/17 08:00 86 05/14/17 07:44 50 05/14/17 07:44 96 50 05/14/17 07:00 73 118/67 05/14/17 06:00 77 05/14/17 04:00 73 05/14/17 04:00 70 05/14/17 04:00 98.3 73 15 175/92 (119) 94 05/14/17 03:52 96 60 05/14/17 02:00 74 05/14/17 00:12 96 70 05/14/17 00:00 98.6 71 16 138/90 (106) 96 05/14/17 00:00 71 05/14/17 00:00 70 05/13/17 22:00 73 05/13/17 20:00 85 05/13/17 20:00 98.3 85 19 168/101 (123) 96 05/13/17 20:00 70 05/13/17 19:56 94 70 05/13/17 18:00 85 05/13/17 16:21 92 80 05/13/17 16:00 75 05/13/17 16:00 80 05/13/17 16:00 97.8 89 18 139/90 (106) 92 05/13/17 15:56 92 147/86 05/13/17 14:00 100 100 05/13/17 14:00 93 05/13/17 13:00 50 Physical Exam Elderly male, intubated, unresponsive Lungs with scattered rales S1/S2, irreg irreg Abd: normal bowel sounds GI: carmona in place Rectal bag in place 2+ generalized edema Laboratory Laboratory Tests Test 05/13/17 17:06 05/13/17 23:34 05/14/17 04:19 05/14/17 12:04 Blood Urea Nitrogen 59 63 Creatinine 1.60 1.95 Random Glucose 165 149 Calcium Level 8.2 8.5 Sodium Level 135 136 Potassium Level 5.2 5.2 Chloride Level 101 101 Carbon Dioxide Level 24.3 24.9 Anion Gap 10 10 Estimat Glomerular Filtration Rate 43 34 Activated Partial Thromboplast Time 33.3 64.8 63.9 White Blood Count 41.8 Red Blood Count 4.54 Hemoglobin 13.8 Hematocrit 42.3 Mean Corpuscular Volume 93.3 Mean Corpuscular Hemoglobin 30.4 Mean Corpuscular Hemoglobin Concent 32.6 Red Cell Distribution Width 14.3 Platelet Count 179 Mean Platelet Volume 11.6 CBC Comment AUTO DIFF Differential Total Cells Counted 100 Neutrophils % (Manual) 87 Band Neutrophils % 7 Lymphocytes % 1 Monocytes % 1 Neutrophils # (Manual) 41.0 Metamyelocytes 3 Myelocytes 1 Differential Comment FINAL DIFF MANUAL Platelet Estimate NORMAL Platelet Morphology Comment NORMAL Phosphorus Level 5.5 Magnesium Level 2.9 Date/Time Source Procedure Growth Status 05/06/17 08:20 Blood Peripheral Aerobic Blood Culture - Final NO GROWTH IN 5 DAYS Complete 05/06/17 08:20 Blood Peripheral Anaerobic Blood Culture - Final NO GROWTH IN 5 DAYS Complete 05/12/17 17:30 Stool Stool Stool Occult Blood ([facility]O) - Final HEMOCCULT POSITIVE Complete 05/12/17 12:00 Sputum Endotracheal Gram Stain - Final Resulted 05/12/17 12:00 Sputum Endotracheal Sputum Culture - Preliminary HEAVY GROWTH NORMAL RESPIRATORY ABDIFATAH... Resulted 05/07/17 12:28 Urine Catheterized Urine Legionella Antigen - Final PRESUMPTIVE NEGATIVE FOR LEGIONELLA P... Complete 05/07/17 12:28 Urine Catheterized Urine Streptococcus pneumoniae Antigen (M - Final PRESUMPTIVE NEGATIVE FOR STREPTOCOCCU... Complete (Dominique Caballero) Result Diagram: 05/14/17 0419 05/14/17 0419 Imaging Last [address] 05/12/17 0000 Signed Impressions: Service Date/Time: Saturday, May 13, 2017 14:12 - CONCLUSION: Moderate motion artifact, 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 Enoch Phillips MD FACR Abdomen/Pelvis CT 05/12/17 0000 Signed Impressions: Service Date/Time: Saturday, May 13, 2017 14:23 - CONCLUSION: 1. Ascites with small shrunken liver and prominent gallbladder. 2. There no inflammatory changes around the gallbladder 3. I do not see etiology for leukocytosis abdominal pain. 4. Mild bowel wall thickening sigmoid colon Enoch Phillips MD FACR (Dominique Caballero) Assessment and Plan Problem List: (1) Acute renal failure ICD Codes: N17.9 - Acute kidney failure, unspecified Plan: Normal renal function at baseline. MAXWELL most likely related to sepsis syndrome, may have progressed to ATN. Also have to consider allergic interstitial nephritis and vancomycin induced nephrotoxicity He is making urine, give a dose of lasix and monitor. Avoid nephrotoxic agents. 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 Agree with above assessment and plan. Likely has ATN. AIN is possible. Diuresis. Prognosis is guarded. (Ki Wells MD) Problem Qualifiers (1) Respiratory failure: Qualified Codes: J96.01 - Acute respiratory failure with hypoxia; J96.02 - Acute respiratory failure with hypercapnia Dominique Caballero May 14, 2017 12:56 Ki Wells MD May 14, 2017 16:55
[2017-05-14] MEDS: SODIUM CHLOR 0.9% 1000 ML INJ 1,000 ML IV SCH (13:13)
[2017-05-14] MEDS: AMIODARONE INJ 450 MG in SODIUM CHLOR 0.9% (EXCEL) INJ 250 ML IV PRN (13:14)
[2017-05-14] MEDS: HEPARIN-D5W 25,000 U/250 ML 250 ML IV PRN (14:53)
[2017-05-14] MEDS: RESP: ALBUTEROL 2.5 MG/IPRATROPIUM 0.5 MG NEB (PRN) INH (15:11)
[2017-05-15] VITALS (19 sets, daily range): BP systolic 106–174; BP diastolic 57–88; PULSE 46–67; RESP 15–20; TEMP 97.5–98.4; O2SAT 93–96
[2017-05-15] MEDS: INSULIN NovoLIN REGULAR SUPPLEMENTAL SCALE SQ SCH ×6 (00:39→20:00)
[2017-05-15] MEDS: metroNIDAZOLE 500 MG INJ 100 ML IV SCH ×3 (00:40→16:19)
[2017-05-15] MEDS: cloNIDine HCL 0.2 MG TAB PO SCH ×3 (02:30→17:58)
[2017-05-15] MEDS: DILTIAZEM HCL 30 MG TAB OG-TUBE SCH ×4 (04:30→19:19)
--- NOTE | 2017-05-15 05:24 | MG ---
cc: ROSE MI M.D. Lab No: Date: 05/14/2017 Age: 71 Sex: M Race: DATE OF 1945 AGE [age] years old EEG NUMBER [id number] REFERRING MD Emely ROOM 503. NOTE Intubated. With photic stimulation only. No sedation. The patient is intubated. With good tactile stimulation on both upper extremities, not on the lowers. Only command responded to was opening eyes. CT shows old right posterior infarct. Came in on 05/06/2017 with shortness of breath, chest pain, respiratory distress. Continuing delirium, encephalopathy. MEDICATIONS Please refer to the MAR. DESCRIPTION OF RECORD A lot of eye artifact, movement artifact but overall background slowing and seems to be in the delta range. There is some questionable phase reversals seen at S8, T4, T4-T6, epoch 31. There is a lot of artifact in that area as well so it is questionable as far as accuracy. Otherwise the background is moderately slow. Photic stimulation - Minimal driving response but continues to be in the delta frequency. Artifact with stimulation of the patient. IMPRESSION Abnormal EEG due to moderate slowing. Some questionable phase reversal as described but no ongoing epileptic activity. Clinical correlation. MD RULA Ang/BENOIT /2:06 PM /5:13 AM
[2017-05-15] MEDS: SODIUM CHLOR 0.9% 1000 ML INJ 1,000 ML IV SCH (05:37)
[2017-05-15 06:35] LABS: AUTOMATED NEUTROPHIL # 37.3 TH/MM3 (1.8-7.7); BASOPHIL # 0.1 TH/MM3 (0-0.2); BASOPHIL % 0.1 % (0.0-2.0); EOSINOPHIL % 0.1 % (0.0-4.0); HEMATOCRIT 42.2 % (39.0-51.0); HEMOGLOBIN 13.6 GM/DL (13.0-17.0); LYMPH % 1.1 % (9.0-44.0); LYMPHOCYTE # 0.4 TH/MM3 (1.0-4.8); MEAN CELL VOLUME 94.6 FL (80.0-100.0); MEAN CORPUSCULAR HEMOGLOBIN 30.4 PG (27.0-34.0); MEAN CORPUSCULAR HGB CONC 32.2 % (32.0-36.0); MEAN PLATELET VOLUME 10.9 FL (7.0-11.0); MONO % 2.7 % (0.0-8.0); MONOCYTE # 1.1 TH/MM3 (0-0.9); PLATELET COUNT 211 TH/MM3 (150-450); RED BLOOD COUNT 4.46 MIL/MM3 (4.50-5.90); RED CELL DISTRIBUTION WIDTH 14.6 % (11.6-17.2); WHITE BLOOD COUNT 38.8 TH/MM3 (4.0-11.0)
[2017-05-15 07:02] LABS: BICARBONATE 23.6 MEQ/L (21.0-32.0); CALCIUM 7.9 MG/DL (8.5-10.1); CREATININE 2.51 MG/DL (0.60-1.30)
[2017-05-15 08:12] LABS: BANDS 4 % (0-6); LYMPHOCYTES 2 % (9-44); METAMYELOCYTES 2 % (0-1); MONOCYTES 1 % (0-8); NEUTROPHIL # MANUAL DIFF 37.6 TH/MM3 (1.8-7.7); POLYS (SEG NEUTROPHILS) 91 % (16-70)
[2017-05-15] MEDS ORDERED: DEXTROSE 50% IN WATER 50 ML VIAL(D50) IV PUSH ONE (08:45)
[2017-05-15] MEDS ORDERED: INSULIN HUMAN REGULAR 1,000 UNITS/10 ML VIAL IV PUSH ONE ×2 (08:45→10:00)
--- NOTE | 2017-05-15 08:45 | HHI.CCPN ---
Subjective Remarks/Hospital Course Hospital Course: This is a 71-year-old patient with a history of COPD and atrial fibrillation who presented to the emergency department with a report of chest pain, but resolved on the way to the hospital. He has a history of CVA with residual left -sided weakness. In the emergency department he was significant short breath and was placed on BiPAP for respiratory distress. ABG despite BiPAP demonstrates a PCO2 of 88 and the patient continued to decline despite our attempts and he was intubated by the emergency department physician. When I evaluated the patient, the patient is artery recently intubated and sedated. No additional information is available from the patient. Chest x-ray demonstrates questionable right lung atelectasis versus possible early consolidation, possible viral/atypical pneumonia. Subjective: 2: no improvements. remains on vent. discussed with at length: apparently he has had significant functional decline since stroke in 12/2016, and has had multiple repeat hospitalizations, including SNF, LTAC, rehab level care, and has continued to decline. this likely represents a slow terminal decline in function. expressed my concern that he may not get back to functional status. goals remain aggressive for now. sputum growing staph. 2/: no meaningful improvements. more hypercarbic today: pco2 back in the 70s. sputum growing staph aureus, will narrow spectrum, but leave atypical coverage given COPD and clinical course that may suggest atypical pneumonia. palliative consulted. 2: no significant improvements. wbc still elevated, but may be steroid response. still altered with metabolic encephalopathy. weaning sedation. failing cpap trials. has required LTAC level care for slow wean before: may require again. 05/10: encephalopathy persists. most likely hypoactive delirium. failing CPAP trials for delirium and too somnolent to pass successfully. may require tracheostomy if goals remain aggressive. 05/11 Patient remains intubated and on Precedex drip. Afebrile. 05/12 Patient remains intubated and sedated. On Heparin drip. T:99.7 last night. 05/13 Patient remains intubated sedated with Fentanyl drip. T: 100.8. C-diff PCR positive last night. Started on Amio drip last night for Afib RVR 05/14 No events overnight. Off sedation. CT brain yesterday showed old right sided CVA otherwise no acute process. Afebrile. WBC is trending down. 2/9 Patient remains intubated. Afebrile. Objective Vital Signs Date Time Temp Pulse Resp B/P (MAP) Pulse Ox O2 Delivery O2 Flow Rate FiO2 05/15/17 07:59 93 50 05/15/17 06:00 63 05/15/17 04:00 98.3 18 150/76 (100) Intake and Output 05/15/17 05/15/17 05/16/17 08:00 16:00 00:00 Intake Total 1131 ml Output Total 600 ml Balance 531 ml Result Diagram: 05/15/1760405/15/17604 Other Results Laboratory Tests Test 05/14/17 12:04 05/15/17 06:05 Activated Partial Thromboplast Time 63.9 SEC 54.1 SEC White Blood Count 38.8 TH/MM3 Red Blood Count 4.46 MIL/MM3 Hemoglobin 13.6 GM/DL Hematocrit 42.2 % Mean Corpuscular Volume 94.6 FL Mean Corpuscular Hemoglobin 30.4 PG Mean Corpuscular Hemoglobin Concent 32.2 % Red Cell Distribution Width 14.6 % Platelet Count 211 TH/MM3 Mean Platelet Volume 10.9 FL Neutrophils (%) (Auto) 96.0 % Lymphocytes (%) (Auto) 1.1 % Monocytes (%) (Auto) 2.7 % Eosinophils (%) (Auto) 0.1 % Basophils (%) (Auto) 0.1 % Neutrophils # (Auto) 37.3 TH/MM3 Lymphocytes # (Auto) 0.4 TH/MM3 Monocytes # (Auto) 1.1 TH/MM3 Eosinophils # (Auto) 0.0 TH/MM3 Basophils # (Auto) 0.1 TH/MM3 CBC Comment AUTO DIFF Differential Total Cells Counted 100 Neutrophils % (Manual) 91 % Band Neutrophils % 4 % Lymphocytes % 2 % Monocytes % 1 % Neutrophils # (Manual) 37.6 TH/MM3 Metamyelocytes 2 % Differential Comment FINAL DIFF MANUAL Platelet Estimate NORMAL Platelet Morphology Comment NORMAL Blood Urea Nitrogen 72 MG/DL Creatinine 2.51 MG/DL Random Glucose 154 MG/DL Calcium Level 7.9 MG/DL Sodium Level 136 MEQ/L Potassium Level 5.7 MEQ/L Chloride Level 101 MEQ/L Carbon Dioxide Level 23.6 MEQ/L Anion Gap 11 MEQ/L Estimat Glomerular Filtration Rate 25 ML/MIN Imaging Last Impressions Head CT 2/6/18 0000 Signed Impressions: Service Date/Time: Saturday, May 13, 2017 14:12 - CONCLUSION: Moderate motion artifact, 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 Enoch Phillips MD FACR Abdomen/Pelvis CT 05/12/17 0000 Signed Impressions: Service Date/Time: Saturday, May 13, 2017 14:23 - CONCLUSION: 1. Ascites with small shrunken liver and prominent gallbladder. 2. There no inflammatory changes around the gallbladder 3. I do not see etiology for leukocytosis abdominal pain. 4. Mild bowel wall thickening sigmoid colon Enoch Phillips MD FACR Lower Extremity Ultrasound 05/11/17 Signed Impressions: Service Date/Time: Thursday, May 11, 2017 10:33 - CONCLUSION: 1. Occlusive thrombus within the left proximal deep femoral vein as well as nonocclusive thrombus within the left common femoral, greater saphenous origin and bifurcation of the superficial femoral and deep femoral veins. 2. No deep venous thrombosis within the right lower extremity. Roque Hodge MD Chest X-Ray 05/11/17 Signed Impressions: Service Date/Time: Thursday, May 11, 2017 07:57 - CONCLUSION: Scattered bibasilar atelectasis and/or infiltrates. Small left pleural effusion. Cardiomegaly. Roque Hodge MD CT Angiography 05/11/17 Signed Impressions: Service Date/Time: Thursday, May 11, 2017 16:55 - CONCLUSION: Significant bibasilar consolidative changes or trace pleural effusion. Negative for central pulmonary emboli. Enoch Phillips MD FACR Objective Remarks GENERAL: Patient is 71 yo intubated SKIN: Warm and dry. HEAD: Normocephalic. EYES: No scleral icterus. No injection or drainage. NECK: Supple, trachea midline. No JVD or lymphadenopathy. CARDIOVASCULAR: Regular rate and rhythm without murmurs, gallops, or rubs. RESPIRATORY: Breath sounds equal bilaterally. No accessory muscle use. GASTROINTESTINAL: Abdomen soft, non-tender, nondistended. MUSCULOSKELETAL: No cyanosis, +edema. Neuro: Intubated A/P Assessment and Plan Neuro: Encephalopathy Off sedation. Monitor neuro status CT brain : old right CVA otherwise no acute process EEG 05/14: Mod encephalopathy Pulm: Acute Severe COPD Exacerbation Acute hypoxic and hypercarbic respiratory failure Healthcare Associated Pneumonia: Staph aureus On PRVC/AV RR 18, TV 500, IT:1.0, PEEP:8 FIO2 50% Continue with vent support keep sat >92% Bronchodilators, ICU vent bundle. Daily SBT as [place] On Solumederol 60mg Q12 CTA chest showed no PE, consolidative changes at bases CV: Atrial fibrillation with rapid ventricular response Monitor HR and BP keep MAP>65mmHg On Cardizem 60mg Q6, Lopressor 50mg Q12, Clonidine 0.2mg Q8 Echo showed EF 55-60% Continue with Heparin drip for Afib and DVT : Monitor renal function, I/O's, avoid nephrotoxins Renal function worse today with Cr: 2.51 today from 1.95 On NS@75ml/hr, on Lasix 40mg IV daily Treat hyperkalemia with 7u IV insulin, D50, Kayexalate and ca. Repeat K level in 2 hrs Renal is following- Dr. Wells GI: Continue tube feeds- Jevity 1.5 @60ml/hr, On Pepcid for GI prophylaxis CT abd/pelvis: Ascites with small shrunken liver and prominent gallbladder. There no inflammatory changes around the gallbladder D: 05/06 Sputum cx: Staph Aureus sensitive to Rocephin Positive C-diff PCR Continue abx( Rocephin, IV Flagyl, PO Vanco).monitor for signs of infections ( Fever, WBC) WBC is trending down Sputum: MRSA sensitive for Rocephin, follow up sputum cx C-diff PCR positive 05/12. ID is following Strep pneumonia and Legionella urinary Ag negative on 05/07 Nasal washing negative for Flu on 05/06 Heme: Monitor CBC, coags- on heparin drip. H/H stable. Endo: SSI for glycemic control GI prophylaxis- Pepcid DVT prophylaxis- SCD, Heparin drip Doppler US LE :Occlusive thrombus within the left proximal deep femoral vein as well as nonocclusive thrombus within the left common femoral, greater saphenous origin and bifurcation of the superficial femoral and deep femoral veins. No DVT within the right lower extremity. Palliative care is following Poor prognosis given resp failure, encephalopathy , worsening renal function , pneumonia and C-diff colitis. Family is leaning towards withdrawal and transition to comfort care awaiting daughter to arrive from out town. CCT 30 mins Juan Han MD May 15, 2017 08:45
[2017-05-15] MEDS: METOPROLOL TARTRATE 50 MG TAB PO SCH ×2 (08:48→19:18)
[2017-05-15] MEDS: cefTRIAXone INJ 1,000 MG in SODIUM CHLORIDE 0.9% INJ 100 ML IV SCH (08:50)
[2017-05-15] MEDS: FAMOTIDINE 20 MG/2 ML VIAL IV PUSH SCH (08:53)
[2017-05-15] MEDS: VANCOMYCIN 500 MG VIAL (FOR ORAL USE ONLY) PO SCH (08:53)
[2017-05-15] MEDS: methylPREDNISolone SOD SUCC 125 MG/2 ML VIAL IV PUSH SCH ×2 (08:53→20:26)
[2017-05-15] MEDS: CHLORHEXIDINE 0.12% (ORAL KIT) 15 ML CUP MT SCH ×2 (08:54→20:26)
[2017-05-15] MEDS: FUROSEMIDE 40 MG/4 ML VIAL IV PUSH SCH (08:54)
--- NOTE | 2017-05-15 09:43 | HHI.NPPN ---
Subjective Renal Failure: Acute Interval History He remains intubated. Renal function is worse. He is also hyperkalemic. On 50% FiO2. He is a DNR, palliative is following. (Dominique Caballero) Objective Data Data Vital Signs Date Time Temp Pulse Resp B/P (MAP) Pulse Ox O2 Delivery O2 Flow Rate FiO2 05/15/17 07:59 93 50 05/15/17 07:59 50 05/15/17 07:53 95 50 05/15/17 06:00 63 05/15/17 04:00 62 05/15/17 04:00 45 05/15/17 04:00 98.3 62 18 150/76 (100) 94 05/15/17 03:20 96 60 05/15/17 02:00 46 05/15/17 00:00 45 05/15/17 00:00 98.1 52 18 106/57 (73) 96 05/15/17 00:00 52 05/14/17 22:00 88 05/14/17 20:00 60 05/14/17 20:00 45 05/14/17 20:00 98.9 60 11 104/63 (77) 96 05/14/17 19:43 96 45 05/14/17 18:00 81 05/14/17 16:00 50 05/14/17 16:00 99.0 87 15 162/77 (105) 93 05/14/17 16:00 87 05/14/17 15:12 92 45 05/14/17 14:00 85 05/14/17 13:14 87 120/60 05/14/17 12:00 50 05/14/17 12:00 82 05/14/17 12:00 98.6 82 16 159/74 (102) 94 05/14/17 11:47 95 50 05/14/17 10:00 78 (Dominique Caballero) -: 05/15/17 0605 05/15/17 06 Imaging Last Impressions Head CT 05/12/17 0000 Signed Impressions: Service Date/Time: Saturday, May 13, 2017 14:12 - CONCLUSION: Moderate motion artifact, 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 Enoch Phillips MD FACR Abdomen/Pelvis CT 05/12/17 0000 Signed Impressions: Service Date/Time: Saturday, May 13, 2017 14:23 - CONCLUSION: 1. Ascites with small shrunken liver and prominent gallbladder. 2. There no inflammatory changes around the gallbladder 3. I do not see etiology for leukocytosis abdominal pain. 4. Mild bowel wall thickening sigmoid colon Enoch Phillips MD FACR Lower Extremity Ultrasound 05/11/17 0000 Signed Impressions: Service Date/Time: Thursday, May 11, 2017 10:33 - CONCLUSION: 1. Occlusive thrombus within the left proximal deep femoral vein as well as nonocclusive thrombus within the left common femoral, greater saphenous origin and bifurcation of the superficial femoral and deep femoral veins. 2. No deep venous thrombosis within the right lower extremity. Roque Hodge MD Chest X-Ray 05/11/17 0000 Signed Impressions: Service Date/Time: Thursday, May 11, 2017 07:57 - CONCLUSION: Scattered bibasilar atelectasis and/or infiltrates. Small left pleural effusion. Cardiomegaly. Roque Hodge MD CT Angiography 05/11/17 0000 Signed Impressions: Service Date/Time: Thursday, May 11, 2017 16:55 - CONCLUSION: Significant bibasilar consolidative changes or trace pleural effusion. Negative for central pulmonary emboli. Enoch Phillips MD FACR (Efrain Caballeroon B. STONE RIGGER) Physical Exam General Appearance: Well Nourished, Comfortable (FedericoDominique B. STONE RIGGER) Eyes Eye Exam: Pupils Equal (FedericoDominique B. STONE RIGGER) Throat Throat Exam: Oral Mucosa [place] & Moist (FedericoDominique B. STONE RIGGER) Neck Neck Exam: Neck Supple (Federico,Dominique B. STONE RIGGER) Pulmonary Resp Exam: No Distress, Crackles Resp Remarks vented lung sounds (FedericoDominique B. STONE RIGGER) Cardiology CV Exam: Good Perfusion, Irregular CV Remarks cool extremities, lower (FedericoDominique B. STONE RIGGER) Gastrointestinal/Abdomen GI Exam: Soft, Non-Tender, Bowel Sounds Present (FedericoDominique B. STONE RIGGER) Musculoskeletal MS Exam: Joints Intact, Normal Tone (Federico,Dominique B. STONE RIGGER) Integumentary Skin Exam: Warm, Dry, Intact (FedericoDominique B. STONE RIGGER) Extremeties Extremities Exam: Pedal Pulses Palpable, Moderate Edema (Dominique Caballero) Neurologic Neuro Exam: Unresponsive, Sedated (Dominique Caballero) Psychiatric Psych Exam: Appropriate Responses (Dominique Caballero) Assessment/Plan Assessment Summary: MAXWELL/Acute Renal Failure, Acute Tubular Necrosis, Fluid/ Volume Overload, Hypertension Electrolyte Assessment: Hyperkalemia Problem List: (1) Acute renal failure ICD Codes: N17.9 - Acute kidney failure, unspecified Plan: Normal renal function at baseline. MAXWELL most likely ATN related to sepsis. Also have to consider allergic interstitial nephritis and vancomycin induced nephrotoxicity His renal function is declining He is oliguric and hyperkalemic. Avoid Kayexalate given C diff. Given IV insulin, dextrose, Lasix Repeat labs at noon. Give another dose of Lasix at that time. Repeat labs in AM Spoke with . He is a DNR, did not want aggressive measures. We discussed the indications of dialysis, most likely they do not want to proceed but want to discuss is amongst themselves. He is making urine, give a dose of Lasix and monitor. Avoid nephrotoxic agents. Stop IVF. (2) Respiratory failure ICD Codes: J96.90 - Respiratory failure, unspecified, unspecified whether with hypoxia or hypercapnia Status: Acute Plan: Vent management per cable hooker continue antibiotic management Follow WBC level (3) Atrial fibrillation with RVR ICD Codes: I48.91 - Unspecified atrial fibrillation Plan: On Heparin, off amiodarone. Rate controlled. (4) C. difficile colitis ICD Codes: A04.72 - Enterocolitis due to Clostridium difficile, not specified as recurrent Plan: On IV flagyl. Plan Prognosis is guarded. (Dominique Caballero) Plan patient was seen and examined. Agree with above assessment and plan. Patient's family has decided to seek hospice/comfort care. We will sign off at this time. (Ki Wells MD) Problem Qualifiers (1) Respiratory failure: Qualified Codes: J96.01 - Acute respiratory failure with hypoxia; J96.02 - Acute respiratory failure with hypercapnia Dominique Caballero May 15, 2017 09:43 Ki Wells MD May 15, 2017 14:59
[2017-05-15] MEDS ORDERED: DEXTROSE 50% IN WATER 50 ML SYRINGE IV PUSH ONE (10:00)
[2017-05-15] MEDS ORDERED: SODIUM POLYSTYRENE SULFONATE SUSP 15 GM/60 ML CUP PO ONE (10:00)
[2017-05-15] MEDS ORDERED: CALCIUM GLUCONATE INJ 1 GM in SODIUM CHLORIDE 0.9% INJ 100 ML IV ONE (10:00)
[2017-05-15] MEDS ORDERED: FUROSEMIDE 40 MG/4 ML VIAL IV PUSH ONE ×2 (10:00→12:00)
--- NOTE | 2017-05-15 10:35 | RADRPT ---
EXAM DATE/TIME: 05/15/2017 08:48 [facility] COMPARISON: CHEST SINGLE AP, May 11, 2017, 7:57. INDICATIONS : Respiratory failure. MEDICAL HISTORY : Cardiovascular disease. Cerebrovascular disease. Hypertension. Kidney stones, DVT. SURGICAL HISTORY : None. ENCOUNTER: Subsequent ACUITY: 1 week PAIN SCORE: Non-responsive. LOCATION: Bilateral chest FINDINGS: The endotracheal tube has its tip 3 cm above the stephanie. A nasogastric has its tip below diaphragm. T he heart is stable. Perihilar streakiness is noted consistent with atelectasis and/or infiltrate. The re is a poor inspiratory result. Degenerative changes and scoliosis of the thoracic spine are noted. CONCLUSION: 1. Bilateral perihilar streakiness consistent with atelectasis and/or infiltrates. 2. Poor inspiratory result. 3. Degenerative changes and scoliosis of the thoracic spine. Roque Hodge MD on May 15, 2017 at 10:31 Board Certified Radiologist. This report was verified electronically.
[2017-05-15] MEDS: LINEZOLID 600 MG PREMIX 300 ML IV SCH ×2 (10:53→20:26)
[2017-05-15] MEDS: HEPARIN-D5W 25,000 U/250 ML 250 ML IV PRN (11:32)
--- NOTE | 2017-05-15 11:52 | HHI.HCPN ---
Reason for visit a. To assist with evaluation and management of symptoms including: Shortness of breath, debility b. To assist medical decision maker(s) with: better understanding of current medical conditions; weighing benefits/burdens of medical treatment options; making medical treatment decisions. . Subjective/Interval History Patient seen and examined in his room in [facility]; patient's and son are at bedside. Patient tolerated CPAP for 12 hours yesterday, continues to tolerate spontaneous breathing trials this morning on 50% FiO2. Patient responds to light tactile stimuli. 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 EEG later today. 05/11/17: Chest x-ray revealed scattered bibasilar atelectasis and/or infiltrates and a small left pleural effusion. Ultrasound to the left lower extremity revealed an occlusive thrombus within the left proximal deep femoral vein as well as nonocclusive thrombus within the left common femoral, greater saphenous origin and bifurcation of the superficial femoral and deep femoral veins. No DVT to RLE. CT Angiogram showed bibasilar consolidative changes or trace pleural effusion; negative for central pulmonary emboli. Echocardiogram 05/13/17 LV systolic function normal with EF 55-60%. 05/11/17 occlusive thrombus within the left proximal deep femoral vein as well as nonocclusive thrombus within the left common femoral great saphenous origin. On heparin drip. Afebrile. Persistent leukocytosis but trending downward - WBC of 38.1 Follow up sputum culture - MRSA+. C-diff PCR positive. 05/12/17 - now on IV Flagyl, Rocephin and PO Vancomycin. Infectious disease now following. Patient is hyperkalemic with worsening renal functioning. BUN: 72, creatinine 2.51, GFR 25 Nephrology is following and discussed risks versus benefits of hemodialysis. Palliative care later met with the family who have decided they do not wish to pursue further diagnostic procedures or aggressive interventions ; they will not proceed with HD, but instead wish to transition to comfort focused care. Likely withdrawal in upcoming days. Patient's daughter is attempting arrange travel to [place] tomorrow. Palliative care met with family on 05/12/2017. At that time, the family verbalized understanding that the patient was critically ill. Ms. Stone remained cautiously hopeful stating, "He was supposed to a few times before but he always came through." Patient's son responded to his mother stating, " Yea - but his is a lot weaker now than he was in the past. This might be different" Goals remain aggressive up to the point of cardiopulmonary resuscitation; family stated they have have had multiple conversations with the patient over the years and know "without a doubt" that the patient would not want to proceed with trach and PEG. The patient's son had some questions about what would happen if his father was unable to wean from the ventilator. We briefly discussed passionate withdrawal artificial life support; hospice was introduced. . Family/friend interactions Palliative care met with the family to provide clinical update and discuss recent decline. Patient's renal functioning is deteriorating; nephrology has not with the patient and discussed risks versus benefits of hemodialysis. Family decided they do not wish to pursue further diagnostic procedures or aggressive interventions; they will not proceed with HD, but instead wish to transition to comfort focused care. Likely withdrawal in upcoming days. Patient 's daughter is attempting arrange travel to [place] tomorrow. . Advance Directives Living Will: Copy in medical record Health Care Surrogate: Copy in medical record Advance Directive Specifics Date completed: 12/07/2002 . Health Care Surrogate(s): Health Care Surrogate- Spouse- Geneva Stone [phone] 1st and 2nd alternate respectively. Arsenio Stone (son) [phone] Zenia Poon (daughter) [phone] . Documented care wishes: See scanned copy on EMR . Significant change in goals: FAMILY DOES NOT WISH TO PURSUE FURTHER DIAGNOSTIC PROCEDURES OR AGGRESSIVE INTERVENTIONS, INSTEAD REQUESTING COMFORT FOCUSED CARE. LIKELY WITHDRAWAL IN UPCOMING DAYS Objective Vital Signs Date Time Temp Pulse Resp B/P (MAP) Pulse Ox O2 Delivery O2 Flow Rate FiO2 05/15/17 10:47 94 50 05/15/17 10:00 65 05/15/17 08:00 67 05/15/17 08:00 50 05/15/17 08:00 97.5 67 18 174/88 (116) 93 05/15/17 07:59 93 50 05/15/17 07:59 50 05/15/17 07:53 95 50 05/15/17 06:00 63 05/15/17 04:00 62 05/15/17 04:00 45 05/15/17 04:00 98.3 62 18 150/76 (100) 94 05/15/17 03:20 96 60 05/15/17 02:00 46 05/15/17 00:00 45 05/15/17 00:00 98.1 52 18 106/57 (73) 96 05/15/17 00:00 52 05/14/17 22:00 88 05/14/17 20:00 60 05/14/17 20:00 45 05/14/17 20:00 98.9 60 11 104/63 (77) 96 05/14/17 19:43 96 45 05/14/17 18:00 81 05/14/17 16:00 50 05/14/17 16:00 99.0 87 15 162/77 (105) 93 05/14/17 16:00 87 05/14/17 15:12 92 45 05/14/17 14:00 85 05/14/17 13:14 87 120/60 05/14/17 12:00 50 05/14/17 12:00 82 05/14/17 12:00 98.6 82 16 159/74 (102) 94 Intake & Output 05/15/17 05/15/17 07:00 19:00 Intake Total 1131 ml 832 ml Output Total 600 ml Balance 531 ml 832 ml Intake IV Total 914 ml 832 ml Tube Feeding 217 ml Output Urine Total 100 ml Stool Total 500 ml . Physical Exam CONSTITUTIONAL/GENERAL: This is a frail, elderly male patient who is off sedation and tolerating CPAP on exam. TUBES/LINES/DRAINS: ETT, OGT, PIV, FC, Rectal tube SKIN: Hand are swollen and weeping. + Petechiae. Ecchymoses on upper extremities. HEAD: Atraumatic. Normocephalic. EYES: Pupils equal, round, sluggish. No scleral icterus. No injection or drainage. Fundi not examined. ENT: Sedated. Nose without bleeding or purulent drainage. NECK: Trachea midline. Supple, nontender. CARDIOVASCULAR: Regular rate and rhythm Peripheral pulses symmetric. RESPIRATORY/CHEST: Tolerating CPAP trials on 50% FiO2. Breath sounds diminished bilaterally. GASTROINTESTINAL: Abdomen soft, non-tender. No guarding. Bowel sounds present. GENITOURINARY: Without palpable bladder distension. Weldon catheter in place. MUSCULOSKELETAL: Extremities without clubbing or cyanosis. + Edema. Bilateral lower extremities are cool to touch, feet are mottled. NEUROLOGICAL: Off sedation. Withdrawals to light tactile stimuli; PSYCHIATRIC: Unable to assess, intubated on mechanical ventilation and fentanyl infusion. . Diagnostic Tests Laboratory Laboratory Tests Test 05/12/17 13:50 05/12/17 17:30 05/12/17 22:11 05/13/17 05:02 Activated Partial Thromboplast Time 49.7 SEC (24.3-30.1) 78.0 SEC (24.3-30.1) 55.0 SEC (24.3-30.1) Stool C. difficile Toxin (PCR) POSITIVE (NEGATIVE) Stl C. difficile Toxin Epiderm 027 PRESUMPTIVE POSITIVE White Blood Count 46.6 TH/MM3 (4.0-11.0) Red Blood Count 5.18 MIL/MM3 (4.50-5.90) Hemoglobin 15.9 GM/DL (13.0-17.0) Hematocrit 48.9 % (39.0-51.0) Mean Corpuscular Volume 94.5 FL (80.0-100.0) Mean Corpuscular Hemoglobin 30.7 PG (27.0-34.0) Mean Corpuscular Hemoglobin Concent 32.5 % (32.0-36.0) Red Cell Distribution Width 14.2 % (11.6-17.2) Platelet Count 167 TH/MM3 (150-450) Mean Platelet Volume 11.2 FL (7.0-11.0) Blood Urea Nitrogen 49 MG/DL (7-18) Creatinine 1.31 MG/DL (0.60-1.30) Random Glucose 163 MG/DL (74-106) Calcium Level 8.5 MG/DL (8.5-10.1) Sodium Level 136 MEQ/L (136-145) Potassium Level 5.1 MEQ/L (3.5-5.1) Chloride Level 103 MEQ/L (98-107) Carbon Dioxide Level 24.2 MEQ/L (21.0-32.0) Anion Gap 9 MEQ/L (5-15) Estimat Glomerular Filtration Rate 54 ML/MIN (>89) Test 05/13/17 12:00 05/13/17 17:06 05/13/17 23:34 05/14/17 04:19 Activated Partial Thromboplast Time 81.4 SEC (24.3-30.1) 33.3 SEC (24.3-30.1) 64.8 SEC (24.3-30.1) Blood Urea Nitrogen 59 MG/DL (7-18) 63 MG/DL (7-18) Creatinine 1.60 MG/DL (0.60-1.30) 1.95 MG/DL (0.60-1.30) Random Glucose 165 MG/DL (74-106) 149 MG/DL (74-106) Calcium Level 8.2 MG/DL (8.5-10.1) 8.5 MG/DL (8.5-10.1) Sodium Level 135 MEQ/L (136-145) 136 MEQ/L (136-145) Potassium Level 5.2 MEQ/L (3.5-5.1) 5.2 MEQ/L (3.5-5.1) Chloride Level 101 MEQ/L (98-107) 101 MEQ/L (98-107) Carbon Dioxide Level 24.3 MEQ/L (21.0-32.0) 24.9 MEQ/L (21.0-32.0) Anion Gap 10 MEQ/L (5-15) 10 MEQ/L (5-15) Estimat Glomerular Filtration Rate 43 ML/MIN (>89) 34 ML/MIN (>89) White Blood Count 41.8 TH/MM3 (4.0-11.0) Red Blood Count 4.54 MIL/MM3 (4.50-5.90) Hemoglobin 13.8 GM/DL (13.0-17.0) Hematocrit 42.3 % (39.0-51.0) Mean Corpuscular Volume 93.3 FL (80.0-100.0) Mean Corpuscular Hemoglobin 30.4 PG (27.0-34.0) Mean Corpuscular Hemoglobin Concent 32.6 % (32.0-36.0) Red Cell Distribution Width 14.3 % (11.6-17.2) Platelet Count 179 TH/MM3 (150-450) Mean Platelet Volume 11.6 FL (7.0-11.0) CBC Comment AUTO DIFF Differential Total Cells Counted 100 Neutrophils % (Manual) 87 % (16-70) Band Neutrophils % 7 % (0-6) Lymphocytes % 1 % (9-44) Monocytes % 1 % (0-8) Neutrophils # (Manual) 41.0 TH/MM3 (1.8-7.7) Metamyelocytes 3 % (0-1) Myelocytes 1 % (0-0) Differential Comment FINAL DIFF MANUAL Platelet Estimate NORMAL (NORMAL) Platelet Morphology Comment NORMAL (NORMAL) Phosphorus Level 5.5 MG/DL (2.5-4.9) Magnesium Level 2.9 MG/DL (1.5-2.5) Test 05/14/17 12:04 05/15/17 06:05 05/15/17 10:29 Activated Partial Thromboplast Time 63.9 SEC (24.3-30.1) 54.1 SEC (24.3-30.1) White Blood Count 38.8 TH/MM3 (4.0-11.0) Red Blood Count 4.46 MIL/MM3 (4.50-5.90) Hemoglobin 13.6 GM/DL (13.0-17.0) Hematocrit 42.2 % (39.0-51.0) Mean Corpuscular Volume 94.6 FL (80.0-100.0) Mean Corpuscular Hemoglobin 30.4 PG (27.0-34.0) Mean Corpuscular Hemoglobin Concent 32.2 % (32.0-36.0) Red Cell Distribution Width 14.6 % (11.6-17.2) Platelet Count 211 TH/MM3 (150-450) Mean Platelet Volume 10.9 FL (7.0-11.0) Neutrophils (%) (Auto) 96.0 % (16.0-70.0) Lymphocytes (%) (Auto) 1.1 % (9.0-44.0) Monocytes (%) (Auto) 2.7 % (0.0-8.0) Eosinophils (%) (Auto) 0.1 % (0.0-4.0) Basophils (%) (Auto) 0.1 % (0.0-2.0) Neutrophils # (Auto) 37.3 TH/MM3 (1.8-7.7) Lymphocytes # (Auto) 0.4 TH/MM3 (1.0-4.8) Monocytes # (Auto) 1.1 TH/MM3 (0-0.9) Eosinophils # (Auto) 0.0 TH/MM3 (0-0.4) Basophils # (Auto) 0.1 TH/MM3 (0-0.2) CBC Comment AUTO DIFF Differential Total Cells Counted 100 Neutrophils % (Manual) 91 % (16-70) Band Neutrophils % 4 % (0-6) Lymphocytes % 2 % (9-44) Monocytes % 1 % (0-8) Neutrophils # (Manual) 37.6 TH/MM3 (1.8-7.7) Metamyelocytes 2 % (0-1) Differential Comment FINAL DIFF MANUAL Platelet Estimate NORMAL (NORMAL) Platelet Morphology Comment NORMAL (NORMAL) Blood Urea Nitrogen 72 MG/DL (7-18) Creatinine 2.51 MG/DL (0.60-1.30) Random Glucose 154 MG/DL (74-106) Calcium Level 7.9 MG/DL (8.5-10.1) Sodium Level 136 MEQ/L (136-145) Potassium Level 5.7 MEQ/L (3.5-5.1) Chloride Level 101 MEQ/L (98-107) Carbon Dioxide Level 23.6 MEQ/L (21.0-32.0) Anion Gap 11 MEQ/L (5-15) Estimat Glomerular Filtration Rate 25 ML/MIN (>89) Blood Gas Puncture Site LT RADIAL Blood Gas Patient Temperature 98.6 Blood Gas HCO3 20 mmol/L (22-26) Blood Gas Base Excess -5.2 mmol/L (-2-2) Blood Gas Oxygen Saturation 92 % (90-100) Arterial Blood pH 7.34 (7.380-7.420) Arterial Blood Partial Pressure CO2 38 mmHg (38-42) Arterial Blood Partial Pressure O2 69 mmHg (61-120) Arterial Blood Oxygen Content 16.4 Vol % (12.0-20.0) Arterial Blood Carboxyhemoglobin 0.7 % (0-4) Arterial Blood Methemoglobin 1.1 % (0-2) Blood Gas Hemoglobin 12.7 G/DL (12.0-16.0) Oxygen Delivery Device VENTILATOR Blood Gas Ventilator Setting CPAP/12/+8/50% Blood Gas Inspired Oxygen 50 % . Result Diagram: 05/15/1760405/15/17604 Microbiology Microbiology Date/Time Source Procedure Growth Status 05/12/17 17:30 Stool Stool Stool Occult Blood ([facility]) - Final HEMOCCULT POSITIVE Complete 05/12/17 12:00 Sputum Endotracheal Gram Stain - Final Resulted 05/12/17 12:00 Sputum Culture - Preliminary S. Aureus Mrsa Resulted . Imaging Last 72 hours Impressions Chest X-Ray 05/15/17 0000 Signed Impressions: Service Date/Time: Monday, May 15, 2017 08:48 - CONCLUSION: 1. Bilateral perihilar streakiness consistent with atelectasis and/or infiltrates. 2. Poor inspiratory result. 3. Degenerative changes and scoliosis of the thoracic spine. Roque Hodge MD . Procedures 05/06/2017- Intubation . Assessment and Plan Disease Oriented Problem List: (1) COPD with acute exacerbation (2) Healthcare-associated pneumonia (3) Atrial fibrillation with RVR (4) Hypernatremia Symptom Scale: (1) Shortness of breath 0-10 Scale: Unable to quantify Comment: Hx of COPD. Currently being treated for pneumonia. On Ventilator. . (2) Debility 0-10 Scale: Unable to quantify Pertinent Non-Medical Issues Psychosocial: Originally from [place], has 4 children 3 sons one daughter from a previous marriage. to current Geneva Stone Spiritual: Mormonism but not bahai Legal:Geneva Stone [phone] and primary healthcare surrogate 1st and 2nd alternate repectively. Arsenio Stone (son) [phone] Zenia Ayah (daughter) [phone] Ethical issues impacting care: None Important Contacts Geneva Stone [phone] 1st and 2nd alternate repectively. Arsenio Stone (son) [phone] Zenia Ayah (daughter) [phone] Prognosis Prognosis is guarded for current hospitalization, poor overall. History of debility and gradual decline following stroke in July 2016. History of recurrent aspiration pneumonia, COPD, confusion, extended nursing/ rehabilitation facility stay. If patient were to survive current hospitalization, at risk of continuing rehospitalization infection, wounds, and challenges to care secondary to agitation. . Code Status: No Code Plan * NO CODE - DNR/DNI * Legal decision maker: Patient is currently intubated on mechanical ventilation and is not able to make his own medical decisions. It is unknown at this time if he will be able to regain capacity to make medical decisions. Patient's health care surrogate is his spouse, Jesusita Stone and his Ist alternate HCS is Arsenio Stone (son) and 2nd alternate HCS is Zenia Poon ( daughter). * FAMILY DOES NOT WISH TO PURSUE FURTHER DIAGNOSTIC PROCEDURES OR AGGRESSIVE INTERVENTIONS, INSTEAD REQUESTING COMFORT FOCUSED CARE. LIKELY WITHDRAWAL IN UPCOMING DAYS * Discussed patient with bedside nurse (Missy), nephrology LAW LIBRARIAN (Dominique Saavedra) and Dr. Saunders * Exhibits B and C are in the patient's chart * SYMPTOMS: == Shortness of breath: Multifactorial. Patient has history of COPD. Came in with complaints of shortness of breath requiring intubation. Chest x-ray revealing scattered bibasilar atelectasis/infiltrates and small left pleural effusion. CT angiogram showed no evidence of PE. On Duonebs and Antibiotics. No recommendations. == Debility: Progressive. Patient has continued to decline since her last hospitalization in July, for a stroke. Patient has had various stays at rehabilitation and nursing facilities. Currently intubated. May benefit from a Physical therapy consultation if goals remain aggressive. * Palliative care will continue to follow the patient during hospital course as condition evolves, to assist patient/decision-maker with understanding of their medical conditions, weighing benefits/burdens of treatment options, for clarification of goals of treatment. Additionally will assist with any symptoms of palliative concern. . Attestation To help prompt me to consider important information that might be impacting today's encounter and assessment, information from prior notes written by myself or my colleagues may have been "brought forward" into today's note. My signature on this note, however, is an attestation that I personally performed the exam, history, and/or decision-making noted today, and, unless otherwise indicated, the interactions with patient, family, and staff as well as the review of records all occurred today. I also attest that the listed assessment and stated plan reflect my best clinical judgment today based on the combination of historical information, prior notes, and today's exam/ interactions. When time spent is documented, it refers only to time spent today by the signer, or if indicated, combined time spent today by collaborating physician/nurse practitioner. . Paola Castaneda May 15, 2017 11:52
[2017-05-15] MEDS ORDERED: [UNRECOGNIZED DRUG - REMARK] PO SCH (13:00)
--- NOTE | 2017-05-15 13:07 | HHI.IDPN ---
Note Infectious Disease Note Patient is unresponsive. Off sedation. On the vent. and son at bedside. D/W RN. Afebrile. Sputum culture has MRSA. Renal function has deteriorated. Patient had decided against heroic measures with dialysis. Presented to the emergency department on 05/06/2017 with shortness of breath and chest pain. The patient has a history of COPD. PAST MEDICAL HISTORY 1. COPD. 2. Congestive heart failure. 3. Hypercholesteremia. 4. Obstructive sleep apnea. 5. Kidney stones. 6. History of coronary stent. 7. History of CVA. 8. Tonsillectomy. ALLERGIES No known drug allergies. The patient is allergic to HORNET VENOM. ANTIBIOTICS: 1. Vancomycin p.o. 2. Metronidazole IV. 3. Ceftriaxone. OBJECTIVE: Vital Signs Date Time Temp Pulse Resp B/P (MAP) Pulse Ox O2 Delivery O2 Flow Rate FiO2 05/15/17 10:47 94 50 05/15/17 10:00 65 05/15/17 08:00 67 05/15/17 08:00 50 05/15/17 08:00 97.5 67 18 174/88 (116) 93 05/15/17 07:59 93 50 05/15/17 07:59 50 05/15/17 07:53 95 50 05/15/17 06:00 63 05/15/17 04:00 62 05/15/17 04:00 45 05/15/17 04:00 98.3 62 18 150/76 (100) 94 05/15/17 03:20 96 60 05/15/17 02:00 46 05/15/17 00:00 45 05/15/17 00:00 98.1 52 18 106/57 (73) 96 05/15/17 00:00 52 05/14/17 22:00 88 05/14/17 20:00 60 05/14/17 20:00 45 05/14/17 20:00 98.9 60 11 104/63 (77) 96 05/14/17 19:43 96 45 05/14/17 18:00 81 05/14/17 16:00 50 05/14/17 16:00 99.0 87 15 162/77 (105) 93 05/14/17 16:00 87 05/14/17 15:12 92 45 05/14/17 14:00 85 05/14/17 13:14 87 120/60 Laboratory Tests Test 05/14/17 04:19 05/15/17 06:05 White Blood Count 41.8 TH/MM3 38.8 TH/MM3 Red Blood Count 4.54 MIL/MM3 4.46 MIL/MM3 Hemoglobin 13.8 GM/DL 13.6 GM/DL Hematocrit 42.3 % 42.2 % Mean Corpuscular Volume 93.3 FL 94.6 FL Mean Corpuscular Hemoglobin 30.4 PG 30.4 PG Mean Corpuscular Hemoglobin Concent 32.6 % 32.2 % Red Cell Distribution Width 14.3 % 14.6 % Platelet Count 179 TH/MM3 211 TH/MM3 Mean Platelet Volume 11.6 FL 10.9 FL CBC Comment AUTO DIFF AUTO DIFF Differential Total Cells Counted 100 100 Neutrophils % (Manual) 87 % 91 % Band Neutrophils % 7 % 4 % Lymphocytes % 1 % 2 % Monocytes % 1 % 1 % Neutrophils # (Manual) 41.0 TH/MM3 37.6 TH/MM3 Metamyelocytes 3 % 2 % Myelocytes 1 % Differential Comment FINAL DIFF MANUAL FINAL DIFF MANUAL Platelet Estimate NORMAL NORMAL Platelet Morphology Comment NORMAL NORMAL Neutrophils (%) (Auto) 96.0 % Lymphocytes (%) (Auto) 1.1 % Monocytes (%) (Auto) 2.7 % Eosinophils (%) (Auto) 0.1 % Basophils (%) (Auto) 0.1 % Neutrophils # (Auto) 37.3 TH/MM3 Lymphocytes # (Auto) 0.4 TH/MM3 Monocytes # (Auto) 1.1 TH/MM3 Eosinophils # (Auto) 0.0 TH/MM3 Basophils # (Auto) 0.1 TH/MM3 Laboratory Tests Test 05/13/17 17:06 05/14/17 04:19 05/15/17 06:05 Blood Urea Nitrogen 59 MG/DL 63 MG/DL 72 MG/DL Creatinine 1.60 MG/DL 1.95 MG/DL 2.51 MG/DL Random Glucose 165 MG/DL 149 MG/DL 154 MG/DL Calcium Level 8.2 MG/DL 8.5 MG/DL 7.9 MG/DL Sodium Level 135 MEQ/L 136 MEQ/L 136 MEQ/L Potassium Level 5.2 MEQ/L 5.2 MEQ/L 5.7 MEQ/L Chloride Level 101 MEQ/L 101 MEQ/L 101 MEQ/L Carbon Dioxide Level 43 ML/MIN 34 ML/MIN 25 ML/MIN Phosphorus Level 5.5 MG/DL Magnesium Level 2.9 MG/DL Microbiology Date/Time Source Procedure Growth Status 05/12/17 17:30 Stool Stool Stool Occult Blood ([facility]) - Final HEMOCCULT POSITIVE Complete IMAGING: Chest X-Ray 05/15/17 0000 Signed Impressions: Service Date/Time: Monday, May 15, 2017 08:48 - CONCLUSION: 1. Bilateral perihilar streakiness consistent with atelectasis and/or infiltrates. 2. Poor inspiratory result. 3. Degenerative changes and scoliosis of the thoracic spine. Roque Hodge MD Head CT 05/12/17 0000 Signed Impressions: Service Date/Time: Saturday, May 13, 2017 14:12 - CONCLUSION: Moderate motion artifact, 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 Enoch Phillips MD FACR Abdomen/Pelvis CT 05/12/17 0000 Signed Impressions: Service Date/Time: Saturday, May 13, 2017 14:23 - CONCLUSION: 1. Ascites with small shrunken liver and prominent gallbladder. 2. There no inflammatory changes around the gallbladder 3. I do not see etiology for leukocytosis abdominal pain. 4. Mild bowel wall thickening sigmoid colon Enoch Phillips MD FACR Lower Extremity Ultrasound 05/11/17 0000 Signed Impressions: Service Date/Time: Thursday, May 11, 2017 10:33 - CONCLUSION: 1. Occlusive thrombus within the left proximal deep femoral vein as well as nonocclusive thrombus within the left common femoral, greater saphenous origin and bifurcation of the superficial femoral and deep femoral veins. 2. No deep venous thrombosis within the right lower extremity. Roque Hodge MD CT Angiography 05/11/17 0000 Signed Impressions: Service Date/Time: Thursday, May 11, 2017 16:55 - CONCLUSION: Significant bibasilar consolidative changes or trace pleural effusion. Negative for central pulmonary emboli. Enoch Phillips MD FACR PHYSICAL EXAMINATION GENERAL: On the ventilator. HEENT: Pupils are reactive to light. Extraocular movements appear grossly intact. No icterus. No conjunctival erythema. Oropharynx intubated. NECK: No adenopathy. No swelling. LUNGS: Bilateral rhonchi. HEART: Irregular rate and rhythm. 1/6 systolic murmur at the left sternal border. ABDOMEN: Bowel sounds diminished. Soft. Obese. EXTREMITIES: Diffuse ecchymosis and trace edema of the extremities. Pulses of the extremities are normal. Left distal leg is cold, No cyanosis. NEUROLOGIC: Unable to assess. PSYCHIATRIC: Unable to assess. IMPRESSION 1. C. difficile colitis. Patient with 027 positive strain. 2. Pneumonia due to staph aureus. now with MRSA on sputum culture. 3. Acute respiratory failure. 4. Acute renal disease. Worse. 5. Leukocytosis. WBC still elevated. RECOMMENDATIONS 1. Continue oral vancomycin for C. difficile. 2. Continue IV metronidazole for C. difficile. 3. Stop ceftriaxone. 4. Zyvox for MRSA. Order place earlier after review of sputum culture. 5. Monitor white blood cell count. Family has now decided for withdrawal after his daughter arrives from out of state. Jaime Toribio MD May 15, 2017 13:07
[2017-05-15] MEDS: VANCOMYCIN 25 MG/ML SUSP 100 ML BOTTLE PO SCH ×3 (15:00→20:26)
[2017-05-16] VITALS (16 sets, daily range): BP systolic 128–149; BP diastolic 70–82; PULSE 61–74; RESP 15–20; TEMP 97.9–98.4; O2SAT 92–96
[2017-05-16] MEDS: metroNIDAZOLE 500 MG INJ 100 ML IV SCH ×3 (00:53→16:11)
[2017-05-16] MEDS: cloNIDine HCL 0.2 MG TAB PO SCH ×3 (02:30→18:34)
[2017-05-16] MEDS: DILTIAZEM HCL 30 MG TAB OG-TUBE SCH ×3 (02:54→20:36)
[2017-05-16] MEDS: INSULIN NovoLIN REGULAR SUPPLEMENTAL SCALE SQ SCH ×6 (03:20→21:03)
[2017-05-16 05:57] LABS: AUTOMATED NEUTROPHIL # 29.5 TH/MM3 (1.8-7.7); BASOPHIL # 0.4 TH/MM3 (0-0.2); BASOPHIL % 1.1 % (0.0-2.0); HEMATOCRIT 42.3 % (39.0-51.0); HEMOGLOBIN 13.6 GM/DL (13.0-17.0); LYMPH % 0.9 % (9.0-44.0); LYMPHOCYTE # 0.3 TH/MM3 (1.0-4.8); MEAN CELL VOLUME 93.4 FL (80.0-100.0); MEAN CORPUSCULAR HEMOGLOBIN 30.1 PG (27.0-34.0); MEAN CORPUSCULAR HGB CONC 32.2 % (32.0-36.0); MEAN PLATELET VOLUME 10.8 FL (7.0-11.0); MONO % 3.7 % (0.0-8.0); MONOCYTE # 1.1 TH/MM3 (0-0.9); NEUT % 94.3 % (16.0-70.0); PLATELET COUNT 224 TH/MM3 (150-450); RED BLOOD COUNT 4.53 MIL/MM3 (4.50-5.90); RED CELL DISTRIBUTION WIDTH 14.4 % (11.6-17.2); WHITE BLOOD COUNT 31.3 TH/MM3 (4.0-11.0)
[2017-05-16 06:29] LABS: BICARBONATE 22.4 MEQ/L (21.0-32.0); CREATININE 3.02 MG/DL (0.60-1.30)
[2017-05-16 08:47] LABS: BANDS 5 % (0-6); LYMPHOCYTES 1 % (9-44); METAMYELOCYTES 2 % (0-1); MONOCYTES 3 % (0-8); MYELOCYTES 2 % (0-0); POLYS (SEG NEUTROPHILS) 87 % (16-70)
[2017-05-16 08:50] LABS: BURR CELLS 1+ (NORMAL)
[2017-05-16] MEDS: VANCOMYCIN 25 MG/ML SUSP 100 ML BOTTLE PO SCH ×4 (09:30→20:36)
[2017-05-16] MEDS: HEPARIN-D5W 25,000 U/250 ML 250 ML IV PRN (12:46)
[2017-05-16] MEDS: CHLORHEXIDINE 0.12% (ORAL KIT) 15 ML CUP MT SCH ×2 (12:48→20:37)
[2017-05-16] MEDS: FAMOTIDINE 20 MG/2 ML VIAL IV PUSH SCH (12:49)
[2017-05-16] MEDS: methylPREDNISolone SOD SUCC 125 MG/2 ML VIAL IV PUSH SCH ×2 (12:49→20:36)
[2017-05-16] MEDS: FUROSEMIDE 40 MG/4 ML VIAL IV PUSH SCH (12:49)
[2017-05-16] MEDS: METOPROLOL TARTRATE 50 MG TAB PO SCH ×2 (12:50→20:36)
[2017-05-16] MEDS: LINEZOLID 600 MG PREMIX 300 ML IV SCH ×2 (12:51→21:03)
--- NOTE | 2017-05-16 16:32 | HHI.CCPN ---
Subjective Remarks/Hospital Course Hospital Course: This is a 71-year-old patient with a history of COPD and atrial fibrillation who presented to the emergency department with a report of chest pain, but resolved on the way to the hospital. He has a history of CVA with residual left -sided weakness. In the emergency department he was significant short breath and was placed on BiPAP for respiratory distress. ABG despite BiPAP demonstrates a PCO2 of 88 and the patient continued to decline despite our attempts and he was intubated by the emergency department physician. When I evaluated the patient, the patient is artery recently intubated and sedated. No additional information is available from the patient. Chest x-ray demonstrates questionable right lung atelectasis versus possible early consolidation, possible viral/atypical pneumonia. Subjective: 2: no improvements. remains on vent. discussed with at length: apparently he has had significant functional decline since stroke in 12/2016, and has had multiple repeat hospitalizations, including SNF, LTAC, rehab level care, and has continued to decline. this likely represents a slow terminal decline in function. expressed my concern that he may not get back to functional status. goals remain aggressive for now. sputum growing staph. 2/: no meaningful improvements. more hypercarbic today: pco2 back in the 70s. sputum growing staph aureus, will narrow spectrum, but leave atypical coverage given COPD and clinical course that may suggest atypical pneumonia. palliative consulted. 2: no significant improvements. wbc still elevated, but may be steroid response. still altered with metabolic encephalopathy. weaning sedation. failing cpap trials. has required LTAC level care for slow wean before: may require again. 05/10: encephalopathy persists. most likely hypoactive delirium. failing CPAP trials for delirium and too somnolent to pass successfully. may require tracheostomy if goals remain aggressive. 05/11 Patient remains intubated and on Precedex drip. Afebrile. 05/12 Patient remains intubated and sedated. On Heparin drip. T:99.7 last night. 05/13 Patient remains intubated sedated with Fentanyl drip. T: 100.8. C-diff PCR positive last night. Started on Amio drip last night for Afib RVR 05/14 No events overnight. Off sedation. CT brain yesterday showed old right sided CVA otherwise no acute process. Afebrile. WBC is trending down. 2/9 Patient remains intubated. Afebrile. 05/16 Afebrile .leukocytosis continues to down trend. Remains encephalopathic sedation off greater than 48 hours. Creatinine continues to increase, noted family has declined dialysis. Objective Vital Signs Date Time Temp Pulse Resp B/P (MAP) Pulse Ox O2 Delivery O2 Flow Rate FiO2 05/16/17 14:00 61 05/16/17 12:00 98.1 17 147/82 (103) 95 05/16/17 12:00 50 Intake and Output 05/16/17 05/16/17 05/16/17 07:59 15:59 23:59 Intake Total 1055 ml Output Total 225 ml Balance 830 ml Result Diagram: 05/16/17 0352 05/16/17 0352 Imaging Last Impressions Head CT 05/12/17 0000 Signed Impressions: Service Date/Time: Saturday, May 13, 2017 14:12 - CONCLUSION: Moderate motion artifact, 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 Enoch Phillips MD FACR Abdomen/Pelvis CT 05/12/17 0000 Signed Impressions: Service Date/Time: Saturday, May 13, 2017 14:23 - CONCLUSION: 1. Ascites with small shrunken liver and prominent gallbladder. 2. There no inflammatory changes around the gallbladder 3. I do not see etiology for leukocytosis abdominal pain. 4. Mild bowel wall thickening sigmoid colon Enoch Phillips MD FACR Lower Extremity Ultrasound 05/11/17 0000 Signed Impressions: Service Date/Time: Thursday, May 11, 2017 10:33 - CONCLUSION: 1. Occlusive thrombus within the left proximal deep femoral vein as well as nonocclusive thrombus within the left common femoral, greater saphenous origin and bifurcation of the superficial femoral and deep femoral veins. 2. No deep venous thrombosis within the right lower extremity. Roque Hodge MD Chest X-Ray 05/11/17 0000 Signed Impressions: Service Date/Time: Thursday, May 11, 2017 07:57 - CONCLUSION: Scattered bibasilar atelectasis and/or infiltrates. Small left pleural effusion. Cardiomegaly. Roque Hodge MD CT Angiography 05/11/17 0000 Signed Impressions: Service Date/Time: Thursday, May 11, 2017 16:55 - CONCLUSION: Significant bibasilar consolidative changes or trace pleural effusion. Negative for central pulmonary emboli. Enoch Phillips MD FACR Objective Remarks GENERAL: Patient is 71 yo intubated, nonresponsive off all sedation SKIN: Warm and dry. HEAD: Normocephalic. EYES: No scleral icterus. No injection or drainage. NECK: Supple, trachea midline. No JVD or lymphadenopathy. CARDIOVASCULAR: Regular rate and rhythm without murmurs, gallops, or rubs. RESPIRATORY: Breath sounds equal bilaterally. No accessory muscle use. GASTROINTESTINAL: Abdomen soft, non-tender, nondistended. MUSCULOSKELETAL: No cyanosis, +edema. Neuro: GCS 3T .Intubated , withdraws to pain A/P Assessment and Plan Neuro: Encephalopathy Off sedation. Monitor neuro status CT brain : old right CVA otherwise no acute process EEG 05/14: Mod encephalopathy Pulm: Acute Severe COPD Exacerbation Acute hypoxic and hypercarbic respiratory failure Healthcare Associated Pneumonia: Staph aureus On PRVC/AV RR 18, TV 500, IT:1.0, PEEP:8 FIO2 50% Continue with vent support keep sat >92% Bronchodilators, ICU vent bundle. Daily SBT as [place] On Solumederol 60mg Q12 CTA chest showed no PE, consolidative changes at bases Continue CPAP trials, on since 7 AM CV: Atrial fibrillation with rapid ventricular response Monitor HR and BP keep MAP>65mmHg On Cardizem 60mg Q6, Lopressor 50mg Q12, Clonidine 0.2mg Q8 Echo showed EF 55-60% Continue with Heparin drip for Afib and DVT : Monitor renal function, I/O's, avoid nephrotoxins Renal function worse today with Cr: 2.51 today from 1.95 On NS@75ml/hr, on Lasix 40mg IV daily Treat hyperkalemia with 7u IV insulin, D50, Kayexalate and ca. Repeat K level in 2 hrs Renal is following- Dr. Wells GI: Continue tube feeds- Jevity 1.5 @60ml/hr, On Pepcid for GI prophylaxis CT abd/pelvis: Ascites with small shrunken liver and prominent gallbladder. There no inflammatory changes around the gallbladder D: 05/06 Sputum cx: Staph Aureus sensitive to Rocephin Positive C-diff PCR Continue abx( Rocephin, IV Flagyl, PO Vanco).monitor for signs of infections ( Fever, WBC) WBC is trending down Sputum: MRSA sensitive for Rocephin, follow up sputum cx C-diff PCR positive 05/12. ID is following Strep pneumonia and Legionella urinary Ag negative on 05/07 Nasal washing negative for Flu on 05/06 Heme: Monitor CBC, coags- on heparin drip. H/H stable. Endo: SSI for glycemic control GI prophylaxis- Pepcid DVT prophylaxis- SCD, Heparin drip Doppler US LE :Occlusive thrombus within the left proximal deep femoral vein as well as nonocclusive thrombus within the left common femoral, greater saphenous origin and bifurcation of the superficial femoral and deep femoral veins. No DVT within the right lower extremity. Palliative care is following Poor prognosis given resp failure, encephalopathy , worsening renal function , pneumonia and C-diff colitis. Family is leaning towards withdrawal and transition to comfort care awaiting daughter to arrive from out town. Palliative care following my billing statement This patient remains critically ill with one or more organ systems which are or may become a threat to life. I have spent in excess of 31 minutes discontinuously in the care and management of this patient. This time is exclusive of procedures, and includes, but is not limited to, evaluation of the patient, review of the medical record, discussions with family, consultants, nursing staff, or respiratory therapy, and documentation in the medical record. Physician Rosalia Duran MD May 16, 2017 16:32
[2017-05-17] VITALS (18 sets, daily range): BP systolic 116–146; BP diastolic 63–88; PULSE 54–73; RESP 16–18; TEMP 97.7–98.1; O2SAT 94–98
[2017-05-17] MEDS: metroNIDAZOLE 500 MG INJ 100 ML IV SCH ×3 (00:37→18:04)
[2017-05-17] MEDS: INSULIN NovoLIN REGULAR SUPPLEMENTAL SCALE SQ SCH ×6 (00:47→20:26)
[2017-05-17] MEDS: DILTIAZEM HCL 30 MG TAB OG-TUBE SCH ×4 (04:27→20:24)
[2017-05-17] MEDS: cloNIDine HCL 0.2 MG TAB PO SCH ×3 (04:27→18:08)
[2017-05-17 04:48] LABS: HEMATOCRIT 44.3 % (39.0-51.0); HEMOGLOBIN 14.3 GM/DL (13.0-17.0); MEAN CELL VOLUME 93.3 FL (80.0-100.0); MEAN CORPUSCULAR HEMOGLOBIN 30.2 PG (27.0-34.0); MEAN CORPUSCULAR HGB CONC 32.4 % (32.0-36.0); MEAN PLATELET VOLUME 10.6 FL (7.0-11.0); PLATELET COUNT 209 TH/MM3 (150-450); RED BLOOD COUNT 4.75 MIL/MM3 (4.50-5.90); RED CELL DISTRIBUTION WIDTH 14.6 % (11.6-17.2); WHITE BLOOD COUNT 34.4 TH/MM3 (4.0-11.0)
[2017-05-17] MEDS: CHLORHEXIDINE 0.12% (ORAL KIT) 15 ML CUP MT SCH ×2 (08:00→20:26)
[2017-05-17] MEDS: FAMOTIDINE 20 MG/2 ML VIAL IV PUSH SCH (09:03)
[2017-05-17] MEDS: LINEZOLID 600 MG PREMIX 300 ML IV SCH ×2 (09:03→22:47)
[2017-05-17] MEDS: METOPROLOL TARTRATE 50 MG TAB PO SCH ×2 (09:03→20:24)
[2017-05-17] MEDS: FUROSEMIDE 40 MG/4 ML VIAL IV PUSH SCH (09:04)
[2017-05-17] MEDS: methylPREDNISolone SOD SUCC 125 MG/2 ML VIAL IV PUSH SCH ×2 (09:04→20:25)
[2017-05-17] MEDS: VANCOMYCIN 25 MG/ML SUSP 100 ML BOTTLE PO SCH ×4 (09:04→20:24)
--- NOTE | 2017-05-17 09:05 | HHI.CCPN ---
Subjective Remarks/Hospital Course Hospital Course: This is a 71-year-old patient with a history of COPD and atrial fibrillation who presented to the emergency department with a report of chest pain, but resolved on the way to the hospital. He has a history of CVA with residual left -sided weakness. In the emergency department he was significant short breath and was placed on BiPAP for respiratory distress. ABG despite BiPAP demonstrates a PCO2 of 88 and the patient continued to decline despite our attempts and he was intubated by the emergency department physician. When I evaluated the patient, the patient is artery recently intubated and sedated. No additional information is available from the patient. Chest x-ray demonstrates questionable right lung atelectasis versus possible early consolidation, possible viral/atypical pneumonia. Subjective: 2: no improvements. remains on vent. discussed with at length: apparently he has had significant functional decline since stroke in 12/2016, and has had multiple repeat hospitalizations, including SNF, LTAC, rehab level care, and has continued to decline. this likely represents a slow terminal decline in function. expressed my concern that he may not get back to functional status. goals remain aggressive for now. sputum growing staph. 2/: no meaningful improvements. more hypercarbic today: pco2 back in the 70s. sputum growing staph aureus, will narrow spectrum, but leave atypical coverage given COPD and clinical course that may suggest atypical pneumonia. palliative consulted. 2: no significant improvements. wbc still elevated, but may be steroid response. still altered with metabolic encephalopathy. weaning sedation. failing cpap trials. has required LTAC level care for slow wean before: may require again. 05/10: encephalopathy persists. most likely hypoactive delirium. failing CPAP trials for delirium and too somnolent to pass successfully. may require tracheostomy if goals remain aggressive. 05/11 Patient remains intubated and on Precedex drip. Afebrile. 05/12 Patient remains intubated and sedated. On Heparin drip. T:99.7 last night. 05/13 Patient remains intubated sedated with Fentanyl drip. T: 100.8. C-diff PCR positive last night. Started on Amio drip last night for Afib RVR 05/14 No events overnight. Off sedation. CT brain yesterday showed old right sided CVA otherwise no acute process. Afebrile. WBC is trending down. 2/9 Patient remains intubated. Afebrile. 05/16 Afebrile .leukocytosis continues to down trend. Remains encephalopathic sedation off greater than 48 hours. Creatinine continues to increase, noted family has declined dialysis. 05/17: Afebrile. Patient remains encephalopathic. No acute changes overnight. Tentative plans for comfort care measures to be instituted possibly tomorrow. Objective Vital Signs Date Time Temp Pulse Resp B/P (MAP) Pulse Ox O2 Delivery O2 Flow Rate FiO2 05/17/17 07:29 94 50 05/17/17 06:00 73 05/17/17 04:00 97.7 17 131/68 (89) Intake and Output 05/17/17 05/17/17 05/18/17 08:00 16:00 00:00 Intake Total 846 ml Output Total 325 ml Balance 521 ml Result Diagram: 05/17/17 0400 05/16/17 0352 Imaging Last Impressions Chest X-Ray 05/15/17 0000 Signed Impressions: Service Date/Time: Monday, May 15, 2017 08:48 - CONCLUSION: 1. Bilateral perihilar streakiness consistent with atelectasis and/or infiltrates. 2. Poor inspiratory result. 3. Degenerative changes and scoliosis of the thoracic spine. Roque Hodge MD Head CT 05/12/17 0000 Signed Impressions: Service Date/Time: Saturday, May 13, 2017 14:12 - CONCLUSION: Moderate motion artifact, 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 Enoch Phillips MD FACR Abdomen/Pelvis CT 05/12/17 0000 Signed Impressions: Service Date/Time: Saturday, May 13, 2017 14:23 - CONCLUSION: 1. Ascites with small shrunken liver and prominent gallbladder. 2. There no inflammatory changes around the gallbladder 3. I do not see etiology for leukocytosis abdominal pain. 4. Mild bowel wall thickening sigmoid colon Enoch Phillips MD FACR Lower Extremity Ultrasound 05/11/17 0000 Signed Impressions: Service Date/Time: Thursday, May 11, 2017 10:33 - CONCLUSION: 1. Occlusive thrombus within the left proximal deep femoral vein as well as nonocclusive thrombus within the left common femoral, greater saphenous origin and bifurcation of the superficial femoral and deep femoral veins. 2. No deep venous thrombosis within the right lower extremity. Roque Hodge MD CT Angiography 05/11/17 Signed Impressions: Service Date/Time: Thursday, May 11, 2017 16:55 - CONCLUSION: Significant bibasilar consolidative changes or trace pleural effusion. Negative for central pulmonary emboli. Enoch Phillips MD FACR Last Impressions Head CT 05/12/17 Signed Impressions: Service Date/Time: Saturday, May 13, 2017 14:12 - CONCLUSION: Moderate motion artifact, 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 Enoch Phillips MD FACR Abdomen/Pelvis CT 05/12/17 0000 Signed Impressions: Service Date/Time: Saturday, May 13, 2017 14:23 - CONCLUSION: 1. Ascites with small shrunken liver and prominent gallbladder. 2. There no inflammatory changes around the gallbladder 3. I do not see etiology for leukocytosis abdominal pain. 4. Mild bowel wall thickening sigmoid colon Enoch Phillips MD FACR Lower Extremity Ultrasound 05/11/17 Signed Impressions: Service Date/Time: Thursday, May 11, 2017 10:33 - CONCLUSION: 1. Occlusive thrombus within the left proximal deep femoral vein as well as nonocclusive thrombus within the left common femoral, greater saphenous origin and bifurcation of the superficial femoral and deep femoral veins. 2. No deep venous thrombosis within the right lower extremity. Roque Hodge MD Chest X-Ray 05/11/17 Signed Impressions: Service Date/Time: Thursday, May 11, 2017 07:57 - CONCLUSION: Scattered bibasilar atelectasis and/or infiltrates. Small left pleural effusion. Cardiomegaly. Roque Hodge MD CT Angiography 05/11/17 Signed Impressions: Service Date/Time: Thursday, May 11, 2017 16:55 - CONCLUSION: Significant bibasilar consolidative changes or trace pleural effusion. Negative for central pulmonary emboli. Enoch Phillips MD FACR Objective Remarks GENERAL: Patient is 71 yo intubated, nonresponsive off all sedation SKIN: Warm and dry. HEAD: Normocephalic. EYES: No scleral icterus. No injection or drainage. Pupils 3 mm and sluggishly reactive NECK: Supple, trachea midline. No JVD or lymphadenopathy. CARDIOVASCULAR: Regular rate and rhythm without murmurs, gallops, or rubs. RESPIRATORY: Breath sounds equal bilaterally. No accessory muscle use. GASTROINTESTINAL: Abdomen soft, non-tender, nondistended. MUSCULOSKELETAL: No cyanosis, +edema. Neuro: GCS 3T .Intubated , withdraws to pain A/P Assessment and Plan Neuro: Encephalopathy Off sedation. Monitor neuro status CT brain : old right CVA otherwise no acute process EEG 05/14: Mod encephalopathy Pulm: Acute Severe COPD Exacerbation Acute hypoxic and hypercarbic respiratory failure Healthcare Associated Pneumonia: Staph aureus On PRVC/AV RR 18, TV 500, IT:1.0, PEEP:8 FIO2 50% Continue with vent support keep sat >92% Bronchodilators, ICU vent bundle. Daily SBT as [place] On Solumederol 60mg Q12 CTA chest showed no PE, consolidative changes at bases Continue CPAP trials, on since 7 AM CV: Atrial fibrillation with rapid ventricular response Monitor HR and BP keep MAP>65mmHg On Cardizem 60mg Q6, Lopressor 50mg Q12, Clonidine 0.2mg Q8 Echo showed EF 55-60% Continue with Heparin drip for Afib and DVT : Monitor renal function, I/O's, avoid nephrotoxins Renal function worse today with Cr: 2.51 today from 1.95 On NS@75ml/hr, on Lasix 40mg IV daily Treat hyperkalemia with 7u IV insulin, D50, Kayexalate and ca. Repeat K level in 2 hrs Renal is following- Dr. Wells GI: Continue tube feeds- Jevity 1.5 @60ml/hr, On Pepcid for GI prophylaxis CT abd/pelvis: Ascites with small shrunken liver and prominent gallbladder. There no inflammatory changes around the gallbladder ID: Persistent leukocytosis 05/06 Sputum cx: Staph Aureus sensitive to Rocephin Positive C-diff PCR Continue abx( Rocephin, IV Flagyl, PO Vanco).monitor for signs of infections ( Fever, WBC) WBC is trending down Sputum: MRSA sensitive for Rocephin, follow up sputum cx C-diff PCR positive 05/12. ID is following Strep pneumonia and Legionella urinary Ag negative on 05/07 Nasal washing negative for Flu on 05/06 Heme: Monitor CBC, coags- on heparin drip. H/H stable. Endo: SSI for glycemic control GI prophylaxis- Pepcid DVT prophylaxis- SCD, Heparin drip Doppler US LE :Occlusive thrombus within the left proximal deep femoral vein as well as nonocclusive thrombus within the left common femoral, greater saphenous origin and bifurcation of the superficial femoral and deep femoral veins. No DVT within the right lower extremity. Palliative care is following Poor prognosis given resp failure, encephalopathy , worsening renal function , pneumonia and C-diff colitis. Family is leaning towards withdrawal and transition to comfort care awaiting daughter to arrive from out town. Palliative care following-tentative plan for possible initiation of comfort care measures on Thursday 05/18 my billing statement This patient remains critically ill with one or more organ systems which are or may become a threat to life. I have spent in excess of 30 minutes discontinuously in the care and management of this patient. This time is exclusive of procedures, and includes, but is not limited to, evaluation of the patient, review of the medical record, discussions with family, consultants, nursing staff, or respiratory therapy, and documentation in the medical record. Physician Rosalia Duran MD May 17, 2017 09:05
[2017-05-17] MEDS: HEPARIN-D5W 25,000 U/250 ML 250 ML IV PRN (13:31)
[2017-05-18] VITALS (11 sets, daily range): BP systolic 134–162; BP diastolic 76–87; PULSE 55–84; RESP 9–19; TEMP 97.2–98.3; O2SAT 77–97
[2017-05-18] MEDS: INSULIN NovoLIN REGULAR SUPPLEMENTAL SCALE SQ SCH ×3 (00:32→08:00)
[2017-05-18] MEDS: metroNIDAZOLE 500 MG INJ 100 ML IV SCH ×2 (01:30→08:27)
[2017-05-18] MEDS: cloNIDine HCL 0.2 MG TAB PO SCH (02:30)
[2017-05-18] MEDS: DILTIAZEM HCL 30 MG TAB OG-TUBE SCH ×2 (03:07→08:28)
--- NOTE | 2017-05-18 04:05 | RADRPT ---
EXAM DATE/TIME: 05/18/2017 03:03 [place] COMPARISON: CHEST SINGLE AP, May 15, 2017, 8:48. INDICATIONS : Shortness of breath, possible pulmonary disease. MEDICAL HISTORY : Cardiovascular disease. Cerebrovascular disease. Renal calculi. HTN DVT SURGICAL HISTORY : None. ENCOUNTER: Subsequent ACUITY: 1 week PAIN SCORE: Non-responsive. LOCATION: Bilateral chest FINDINGS: There is consolidation at the bases and small bilateral effusions, EKG leads, endotracheal tube and e nteric tube are noted. Osseous structures are intact. CONCLUSION: Worsening appearance of the chest. Shai Contreras MD on May 18, 2017 at 4:03 Board Certified Radiologist. This report was verified electronically.
[2017-05-18 06:34] LABS: MEAN CELL VOLUME 93.1 FL (80.0-100.0); MEAN CORPUSCULAR HEMOGLOBIN 30.4 PG (27.0-34.0); MEAN CORPUSCULAR HGB CONC 32.7 % (32.0-36.0); MEAN PLATELET VOLUME 11.2 FL (7.0-11.0); PLATELET COUNT 240 TH/MM3 (150-450); RED BLOOD COUNT 4.94 MIL/MM3 (4.50-5.90); RED CELL DISTRIBUTION WIDTH 14.7 % (11.6-17.2)
[2017-05-18 07:02] LABS: BICARBONATE 24.2 MEQ/L (21.0-32.0); CALCIUM 7.9 MG/DL (8.5-10.1); CREATININE 3.85 MG/DL (0.60-1.30)
--- NOTE | 2017-05-18 07:25 | HHI.CCPN ---
Subjective Remarks/Hospital Course Hospital Course: This is a 71-year-old patient with a history of COPD and atrial fibrillation who presented to the emergency department with a report of chest pain, but resolved on the way to the hospital. He has a history of CVA with residual left -sided weakness. In the emergency department he was significant short breath and was placed on BiPAP for respiratory distress. ABG despite BiPAP demonstrates a PCO2 of 88 and the patient continued to decline despite our attempts and he was intubated by the emergency department physician. When I evaluated the patient, the patient is artery recently intubated and sedated. No additional information is available from the patient. Chest x-ray demonstrates questionable right lung atelectasis versus possible early consolidation, possible viral/atypical pneumonia. Subjective: 2: no improvements. remains on vent. discussed with at length: apparently he has had significant functional decline since stroke in 12/2016, and has had multiple repeat hospitalizations, including SNF, LTAC, rehab level care, and has continued to decline. this likely represents a slow terminal decline in function. expressed my concern that he may not get back to functional status. goals remain aggressive for now. sputum growing staph. 2/: no meaningful improvements. more hypercarbic today: pco2 back in the 70s. sputum growing staph aureus, will narrow spectrum, but leave atypical coverage given COPD and clinical course that may suggest atypical pneumonia. palliative consulted. 2: no significant improvements. wbc still elevated, but may be steroid response. still altered with metabolic encephalopathy. weaning sedation. failing cpap trials. has required LTAC level care for slow wean before: may require again. 05/10: encephalopathy persists. most likely hypoactive delirium. failing CPAP trials for delirium and too somnolent to pass successfully. may require tracheostomy if goals remain aggressive. 05/11 Patient remains intubated and on Precedex drip. Afebrile. 05/12 Patient remains intubated and sedated. On Heparin drip. T:99.7 last night. 05/13 Patient remains intubated sedated with Fentanyl drip. T: 100.8. C-diff PCR positive last night. Started on Amio drip last night for Afib RVR 05/14 No events overnight. Off sedation. CT brain yesterday showed old right sided CVA otherwise no acute process. Afebrile. WBC is trending down. 2/9 Patient remains intubated. Afebrile. 05/16 Afebrile .leukocytosis continues to down trend. Remains encephalopathic sedation off greater than 48 hours. Creatinine continues to increase, noted family has declined dialysis. 05/17: Afebrile. Patient remains encephalopathic. No acute changes overnight. Tentative plans for comfort care measures to be instituted possibly tomorrow. 05/18 Patient remains intubated, encephalopathic. On Heparin drip. For possible comfort care today. Objective Vital Signs Date Time Temp Pulse Resp B/P (MAP) Pulse Ox O2 Delivery O2 Flow Rate FiO2 05/18/17 06:00 59 05/18/17 04:00 97.2 17 134/87 (103) 95 05/18/17 04:00 50 Intake and Output 05/18/17 05/18/17 05/19/17 08:00 16:00 00:00 Intake Total 788 ml Output Total 645 ml Balance 143 ml Result Diagram: 05/18/17 0510 05/18/17 0510 Other Results Laboratory Tests Test 05/18/17 05:10 05/18/17 05:32 White Blood Count 33.0 TH/MM3 Red Blood Count 4.94 MIL/MM3 Hemoglobin 15.0 GM/DL Hematocrit 46.0 % Mean Corpuscular Volume 93.1 FL Mean Corpuscular Hemoglobin 30.4 PG Mean Corpuscular Hemoglobin Concent 32.7 % Red Cell Distribution Width 14.7 % Platelet Count 240 TH/MM3 Mean Platelet Volume 11.2 FL CBC Comment AUTO DIFF Activated Partial Thromboplast Time 65.5 SEC Blood Urea Nitrogen 104 MG/DL Creatinine 3.85 MG/DL Random Glucose 208 MG/DL Calcium Level 7.9 MG/DL Sodium Level 132 MEQ/L Potassium Level 4.9 MEQ/L Chloride Level 94 MEQ/L Carbon Dioxide Level 24.2 MEQ/L Anion Gap 14 MEQ/L Estimat Glomerular Filtration Rate 15 ML/MIN Blood Gas Puncture Site LT RADIAL Blood Gas Patient Temperature 98.6 Blood Gas HCO3 19 mmol/L Blood Gas Base Excess -5.0 mmol/L Blood Gas Oxygen Saturation 92 % Arterial Blood pH 7.37 Arterial Blood Partial Pressure CO2 34 mmHg Arterial Blood Partial Pressure O2 73 mmHg Arterial Blood Oxygen Content 19.1 Vol % Arterial Blood Carboxyhemoglobin 0.6 % Arterial Blood Methemoglobin 1.1 % Blood Gas Hemoglobin 14.7 G/DL Oxygen Delivery Device VENTILATOR Blood Gas Ventilator Setting CPAP 10/8 Blood Gas Inspired Oxygen 50 % Imaging Last Impressions Chest X-Ray 05/18/17 0600 Signed Impressions: Service Date/Time: Thursday, May 18, 2017 03:03 - CONCLUSION: Worsening appearance of the chest. Shai Contreras MD Head CT 05/12/17 0000 Signed Impressions: Service Date/Time: Saturday, May 13, 2017 14:12 - CONCLUSION: Moderate motion artifact, 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 Enoch Phillips MD FACR Abdomen/Pelvis CT 05/12/17 0000 Signed Impressions: Service Date/Time: Saturday, May 13, 2017 14:23 - CONCLUSION: 1. Ascites with small shrunken liver and prominent gallbladder. 2. There no inflammatory changes around the gallbladder 3. I do not see etiology for leukocytosis abdominal pain. 4. Mild bowel wall thickening sigmoid colon Enoch Phillips MD FACR Lower Extremity Ultrasound 05/11/17 0000 Signed Impressions: Service Date/Time: Thursday, May 11, 2017 10:33 - CONCLUSION: 1. Occlusive thrombus within the left proximal deep femoral vein as well as nonocclusive thrombus within the left common femoral, greater saphenous origin and bifurcation of the superficial femoral and deep femoral veins. 2. No deep venous thrombosis within the right lower extremity. Roque Hodge MD CT Angiography 05/11/17 0000 Signed Impressions: Service Date/Time: Thursday, May 11, 2017 16:55 - CONCLUSION: Significant bibasilar consolidative changes or trace pleural effusion. Negative for central pulmonary emboli. Enoch Phillips MD FACR Objective Remarks GENERAL: Patient is 71 yo intubated, nonresponsive off all sedation SKIN: Warm and dry. HEAD: Normocephalic. EYES: No scleral icterus. No injection or drainage. Pupils 3 mm and sluggishly reactive NECK: Supple, trachea midline. No JVD or lymphadenopathy. CARDIOVASCULAR: Regular rate and rhythm without murmurs, gallops, or rubs. RESPIRATORY: Breath sounds equal bilaterally. No accessory muscle use. GASTROINTESTINAL: Abdomen soft, non-tender, nondistended. MUSCULOSKELETAL: No cyanosis, +edema. Neuro: Intubated, encephalopathic A/P Assessment and Plan Neuro: Encephalopathy Off sedation. Monitor neuro status CT brain : old right CVA otherwise no acute process EEG 05/14: Mod encephalopathy Pulm: Acute Severe COPD Exacerbation Acute hypoxic and hypercarbic respiratory failure Healthcare Associated Pneumonia: Staph aureus PRVC/AV RR 18, TV 500, IT:1.0, PEEP:8 FIO2 50% On CPAP overnight PS 10, PEEP:8, FIO2 50% Continue with vent support keep sat >92% Bronchodilators, ICU vent bundle. Daily SBT as kash[place] On Solumederol 60mg Q12 CTA chest showed no PE, consolidative changes at bases CV: Atrial fibrillation with rapid ventricular response Monitor HR and BP keep MAP>65mmHg On Cardizem 60mg Q6, Lopressor 50mg Q12, Clonidine 0.2mg Q8 Echo showed EF 55-60% Continue with Heparin drip for Afib and DVT : Monitor renal function, I/O's, avoid nephrotoxins Renal function continue to decline with Cr: 3.85 today, UOP: only 145 ml in 24 hrs on Lasix 40mg IV daily Renal is following- Dr. Wells GI: Continue tube feeds- Jevity 1.5 @60ml/hr, On Pepcid for GI prophylaxis CT abd/pelvis: Ascites with small shrunken liver and prominent gallbladder. There no inflammatory changes around the gallbladder ID: Persistent leukocytosis 05/06 Sputum cx: Staph Aureus sensitive to Rocephin Positive C-diff PCR Continue abx( Zyvox, IV Flagyl, PO Vanco).monitor for signs of infections ( Fever, WBC) WBC is trending down Sputum: MRSA sensitive for Rocephin, follow up sputum cx C-diff PCR positive 05/12. ID is following Strep pneumonia and Legionella urinary Ag negative on 05/07 Nasal washing negative for Flu on 05/06 Heme: Monitor CBC, coags- on heparin drip. H/H stable. Endo: SSI for glycemic control GI prophylaxis- Pepcid DVT prophylaxis- SCD, Heparin drip Doppler US LE :Occlusive thrombus within the left proximal deep femoral vein as well as nonocclusive thrombus within the left common femoral, greater saphenous origin and bifurcation of the superficial femoral and deep femoral veins. No DVT within the right lower extremity. Palliative care is following Poor prognosis given resp failure, encephalopathy , worsening renal function , pneumonia and C-diff colitis. Family is leaning towards withdrawal and transition to comfort care awaiting daughter to arrive from out town. Palliative care following-tentative plan for possible initiation of comfort care measures today Level 2 Juan Han MD May 18, 2017 07:25
[2017-05-18 07:57] LABS: BANDS 2 % (0-6); CORRECTED NUCLEATED RBC 1 /100 WBC (0-0); METAMYELOCYTES 4 % (0-1); MONOCYTES 2 % (0-8); MYELOCYTES 4 % (0-0); NEUTROPHIL # MANUAL DIFF 32.3 TH/MM3 (1.8-7.7); NUCLEATED RED BLOOD CELL 1 (0-0); POLYS (SEG NEUTROPHILS) 88 % (16-70)
[2017-05-18] MEDS: LINEZOLID 600 MG PREMIX 300 ML IV SCH (08:27)
[2017-05-18] MEDS: VANCOMYCIN 25 MG/ML SUSP 100 ML BOTTLE PO SCH (08:29)
[2017-05-18] MEDS: METOPROLOL TARTRATE 50 MG TAB PO SCH (08:29)
[2017-05-18] MEDS: methylPREDNISolone SOD SUCC 125 MG/2 ML VIAL IV PUSH SCH (08:29)
[2017-05-18] MEDS: FUROSEMIDE 40 MG/4 ML VIAL IV PUSH SCH (08:29)
[2017-05-18] MEDS: FAMOTIDINE 20 MG/2 ML VIAL IV PUSH SCH (08:29)
[2017-05-18] MEDS: CHLORHEXIDINE 0.12% (ORAL KIT) 15 ML CUP MT SCH (08:30)
[2017-05-18] MEDS ORDERED: LORazepam 2 MG/ML VIAL IV PUSH ONE ×2 (11:00→12:00)
[2017-05-18] MEDS ORDERED: FUROSEMIDE 20 MG/2 ML VIAL IV PUSH PRN (12:00)
[2017-05-18] MEDS ORDERED: HYDROmorphone HCL PF 2 MG/ML VIAL IV PUSH PRN ×2 (12:00)
[2017-05-18] MEDS ORDERED: BISACODYL 10 MG SUPP RECTAL PRN (12:00)
[2017-05-18] MEDS ORDERED: ACETAMINOPHEN 650 MG SUPP RECTAL PRN (12:00)
[2017-05-18] MEDS ORDERED: LORazepam 2 MG/ML VIAL IV PUSH PRN ×3 (12:00)
[2017-05-18] MEDS ORDERED: HYOSCYAMINE 0.5 MG/ML AMP IV PUSH PRN (12:00)
[2017-05-18] MEDS ORDERED: HYDROmorphone HCL PF 2 MG/ML VIAL IV PUSH ONE ×2 (12:00)
[2017-05-18] MEDS ORDERED: HYOSCYAMINE 0.5 MG/ML AMP IV PUSH ONE (12:00)
--- NOTE | 2017-05-18 13:47 | HHI.HCPN ---
Reason for visit a. To assist with evaluation and management of symptoms including: Shortness of breath, anxiety b. To assist medical decision maker(s) with: better understanding of current medical conditions; weighing benefits/burdens of medical treatment options; making medical treatment decisions. . Subjective/Interval History Patient seen and examined in his room in [facility]; patient's , son and extended are at bedside. Patient intubated, tolerating CPAP on 50% FiO2. Follow-up chest x-ray this morning showed worsening consolidation at the bases and slight bilateral effusions. 05/11/2017: Ultrasound to the left lower extremity revealed an occlusive thrombus within the left proximal deep femoral vein as well as nonocclusive thrombus within the left common femoral, greater saphenous origin and bifurcation of the superficial femoral and deep femoral veins. No DVT to RLE. CT Angiogram showed bibasilar consolidative changes or trace pleural effusion; negative for central pulmonary emboli. 05/11/17 occlusive thrombus within the left proximal deep femoral vein as well as nonocclusive thrombus within the left common femoral great saphenous origin. On heparin drip. Echocardiogram 05/13/17 LV systolic function normal with EF 55-60%. Afebrile. Persistent leukocytosis but trending downward - WBC of 33.0 Sputum culture on 05/12/17 was MRSA+. C-diff PCR positive. 05/12/17 - now on IV Flagyl, Rocephin and PO Vancomycin. Infectious disease now following. BUN: 104, creatinine 3.85, GFR 15 Nephrology is following and discussed need for hemodialysis with family. Family stating patient would not agree to HD. Palliative care later met with the family. Family does not wish to pursue further diagnostic procedures or aggressive interventions; they will not proceed with HD. Patient's daughter arrived from out of town over the weekend. Family now requesting compassionate withdrawal of artificial life support. Family states they have had multiple conversation with the patient over the past 20 years and he would not want trach/PEG tube placement or hemodialysis. Patient's son states, " If he could he'd hit me up side the head for all the things we've already put him through." Discussed with bedside nurse (Jaelyn), charge nurse (Jaelyn) and Dr. Han. Signed exhibits are in the patient's chart, and orders for comfort medications have been placed in the computer. . Advance Directives Living Will: Copy in medical record Health Care Surrogate: Copy in medical record Advance Directive Specifics Date completed: 12/07/2002 . Health Care Surrogate(s): Health Care Surrogate- Spouse- Geneva Stone [phone] 1st and 2nd alternate respectively. Arsenio Stone (son) [phone] Zenia Poon (daughter) [phone] . Documented care wishes: See scanned copy on EMR . Objective Vital Signs Date Time Temp Pulse Resp B/P (MAP) Pulse Ox O2 Delivery O2 Flow Rate FiO2 05/18/17 12:54 Room Air 05/18/17 12:00 58 19 140/76 (97) 94 05/18/17 12:00 58 05/18/17 12:00 50 05/18/17 10:00 58 05/18/17 08:00 98.3 62 17 143/84 (103) 94 05/18/17 08:00 62 05/18/17 08:00 50 05/18/17 07:45 94 50 05/18/17 06:00 59 05/18/17 04:00 97.2 61 17 134/87 (103) 95 05/18/17 04:00 61 05/18/17 04:00 50 05/18/17 03:22 94 50 05/18/17 02:00 59 05/18/17 00:06 97 50 05/18/17 00:00 55 05/18/17 00:00 97.9 55 18 162/78 (106) 97 05/18/17 00:00 50 05/17/17 22:00 55 05/17/17 20:00 67 05/17/17 20:00 97.7 67 17 146/88 (107) 97 05/17/17 20:00 50 05/17/17 19:24 97 50 05/17/17 18:00 64 05/17/17 16:00 50 05/17/17 16:00 62 05/17/17 16:00 98.0 64 18 146/79 (101) 94 05/17/17 15:32 98 50 05/17/17 14:00 56 Intake & Output 05/18/17 05/18/17 07:00 19:00 Intake Total 788 ml Output Total 645 ml Balance 143 ml Tube Feeding 668 ml Other 120 ml Output Urine Total 45 ml Stool Total 600 ml . Physical Exam CONSTITUTIONAL/GENERAL: This is a frail, elderly male patient who is off sedation and tolerating CPAP on exam. TUBES/LINES/DRAINS: ETT, OGT, PIV, FC, Rectal tube SKIN: Hand are swollen and weeping. + Petechiae. Ecchymoses on upper extremities. HEAD: Atraumatic. Normocephalic. EYES: Pupils equal, round, sluggish. No scleral icterus. No injection or drainage. Fundi not examined. ENT: Sedated. Nose without bleeding or purulent drainage. NECK: Trachea midline. Supple, nontender. CARDIOVASCULAR: Regular rate and rhythm Peripheral pulses symmetric. RESPIRATORY/CHEST: Tolerating CPAP trials on 50% FiO2. Breath sounds diminished bilaterally. GASTROINTESTINAL: Abdomen soft, non-tender. No guarding. Bowel sounds present. GENITOURINARY: Without palpable bladder distension. Weldon catheter in place. MUSCULOSKELETAL: Extremities without clubbing or cyanosis. + Edema. Bilateral lower extremities are cool to touch, feet are mottled. NEUROLOGICAL: Off sedation. Encephalopathic. Withdrawals to deep tactile stimuli PSYCHIATRIC: Unable to assess given current clinical condition . Diagnostic Tests Laboratory Laboratory Tests Test 05/15/17 14:50 05/16/17 03:52 05/17/17 04:00 05/18/17 05:10 Potassium Level 5.0 MEQ/L (3.5-5.1) 5.1 MEQ/L (3.5-5.1) 4.9 MEQ/L (3.5-5.1) White Blood Count 31.3 TH/MM3 (4.0-11.0) 34.4 TH/MM3 (4.0-11.0) 33.0 TH/MM3 (4.0-11.0) Red Blood Count 4.53 MIL/MM3 (4.50-5.90) 4.75 MIL/MM3 (4.50-5.90) 4.94 MIL/MM3 (4.50-5.90) Hemoglobin 13.6 GM/DL (13.0-17.0) 14.3 GM/DL (13.0-17.0) 15.0 GM/DL (13.0-17.0) Hematocrit 42.3 % (39.0-51.0) 44.3 % (39.0-51.0) 46.0 % (39.0-51.0) Mean Corpuscular Volume 93.4 FL (80.0-100.0) 93.3 FL (80.0-100.0) 93.1 FL (80.0-100.0) Mean Corpuscular Hemoglobin 30.1 PG (27.0-34.0) 30.2 PG (27.0-34.0) 30.4 PG (27.0-34.0) Mean Corpuscular Hemoglobin Concent 32.2 % (32.0-36.0) 32.4 % (32.0-36.0) 32.7 % (32.0-36.0) Red Cell Distribution Width 14.4 % (11.6-17.2) 14.6 % (11.6-17.2) 14.7 % (11.6-17.2) Platelet Count 224 TH/MM3 (150-450) 209 TH/MM3 (150-450) 240 TH/MM3 (150-450) Mean Platelet Volume 10.8 FL (7.0-11.0) 10.6 FL (7.0-11.0) 11.2 FL (7.0-11.0) Neutrophils (%) (Auto) 94.3 % (16.0-70.0) Lymphocytes (%) (Auto) 0.9 % (9.0-44.0) Monocytes (%) (Auto) 3.7 % (0.0-8.0) Eosinophils (%) (Auto) 0.0 % (0.0-4.0) Basophils (%) (Auto) 1.1 % (0.0-2.0) Neutrophils # (Auto) 29.5 TH/MM3 (1.8-7.7) Lymphocytes # (Auto) 0.3 TH/MM3 (1.0-4.8) Monocytes # (Auto) 1.1 TH/MM3 (0-0.9) Eosinophils # (Auto) 0.0 TH/MM3 (0-0.4) Basophils # (Auto) 0.4 TH/MM3 (0-0.2) CBC Comment AUTO DIFF AUTO DIFF Differential Total Cells Counted 100 100 Neutrophils % (Manual) 87 % (16-70) 88 % (16-70) Band Neutrophils % 5 % (0-6) 2 % (0-6) Lymphocytes % 1 % (9-44) Monocytes % 3 % (0-8) 2 % (0-8) Neutrophils # (Manual) 30.0 TH/MM3 (1.8-7.7) 32.3 TH/MM3 (1.8-7.7) Metamyelocytes 2 % (0-1) 4 % (0-1) Myelocytes 2 % (0-0) 4 % (0-0) Differential Comment FINAL DIFF MANUAL FINAL DIFF MANUAL Platelet Estimate NORMAL (NORMAL) NORMAL (NORMAL) Platelet Morphology Comment NORMAL (NORMAL) ENLARGED (NORMAL) Girish Cells 1+ (NORMAL) Activated Partial Thromboplast Time 41.1 SEC (24.3-30.1) 55.5 SEC (24.3-30.1) 65.5 SEC (24.3-30.1) Blood Urea Nitrogen 79 MG/DL (7-18) 104 MG/DL (7-18) Creatinine 3.02 MG/DL (0.60-1.30) 3.85 MG/DL (0.60-1.30) Random Glucose 235 MG/DL (74-106) 208 MG/DL (74-106) Calcium Level 8.0 MG/DL (8.5-10.1) 7.9 MG/DL (8.5-10.1) Sodium Level 134 MEQ/L (136-145) 132 MEQ/L (136-145) Chloride Level 98 MEQ/L (98-107) 94 MEQ/L (98-107) Carbon Dioxide Level 22.4 MEQ/L (21.0-32.0) 24.2 MEQ/L (21.0-32.0) Anion Gap 14 MEQ/L (5-15) 14 MEQ/L (5-15) Estimat Glomerular Filtration Rate 20 ML/MIN (>89) 15 ML/MIN (>89) Nucleated Red Blood Cells 1 /100 WBC (0-0) Test 05/18/17 05:32 Blood Gas Puncture Site LT RADIAL Blood Gas Patient Temperature 98.6 Blood Gas HCO3 19 mmol/L (22-26) Blood Gas Base Excess -5.0 mmol/L (-2-2) Blood Gas Oxygen Saturation 92 % (90-100) Arterial Blood pH 7.37 (7.380-7.420) Arterial Blood Partial Pressure CO2 34 mmHg (38-42) Arterial Blood Partial Pressure O2 73 mmHg (61-120) Arterial Blood Oxygen Content 19.1 Vol % (12.0-20.0) Arterial Blood Carboxyhemoglobin 0.6 % (0-4) Arterial Blood Methemoglobin 1.1 % (0-2) Blood Gas Hemoglobin 14.7 G/DL (12.0-16.0) Oxygen Delivery Device VENTILATOR Blood Gas Ventilator Setting CPAP 10/8 Blood Gas Inspired Oxygen 50 % . Result Diagram: 05/18/1750905/18/17509 Imaging Last 72 hours Impressions Chest X-Ray 05/18/17 0600 Signed Impressions: Service Date/Time: Thursday, May 18, 2017 03:03 - CONCLUSION: Worsening appearance of the chest. Shai Contreras MD . Procedures 05/06/2017- Intubation . Assessment and Plan Disease Oriented Problem List: (1) COPD with acute exacerbation (2) Healthcare-associated pneumonia (3) Atrial fibrillation with RVR (4) Hypernatremia Symptom Scale: (1) Shortness of breath 0-10 Scale: Unable to quantify Comment: Hx of COPD. Currently being treated for pneumonia. On Ventilator. . (2) Anxiety 0-10 Scale: Unable to quantify Pertinent Non-Medical Issues Psychosocial: Originally from [place], has 4 children 3 sons one daughter from a previous marriage. to current Geneva Stone Spiritual: Protestant but not orthodoxy Legal:Geneva Stone [phone] and primary healthcare surrogate 1st and 2nd alternate repectively. Arsenio Stone (son) [phone] Zenia Poon (daughter) [phone] Ethical issues impacting care: None Important Contacts Geneva Stone [phone] 1st and 2nd alternate repectively. Arsenio Stone (son) [phone] Zenia Poon (daughter) [phone] Prognosis Prognosis is guarded for current hospitalization, poor overall. History of debility and gradual decline following stroke in July 2016. History of recurrent aspiration pneumonia, COPD, confusion, extended nursing/ rehabilitation facility stay. If patient were to survive current hospitalization, at risk of continuing rehospitalization infection, wounds, and challenges to care secondary to agitation. . Code Status: No Code Plan * NO CODE - DNR/DNI * Legal decision maker: Patient is currently intubated on mechanical ventilation and is not able to make his own medical decisions. It is unknown at this time if he will be able to regain capacity to make medical decisions. Patient's health care surrogate is his spouse, Jesusita Stone and his Ist alternate HCS is Arsenio Stone (son) and 2nd alternate HCS is Zenia Poon ( daughter). * Requesting withdrawal of artificial life support later today with family present. * Discussed patient with bedside nurse (Jaelyn), charge nurse (Kaecy) and Dr. Saunders * Exhibits B and C are in the patient's chart * Orders for comfort medications have been placed in the computer; anticipatory guidance provided to family regarding withdrawal of artificial life support. * SYMPTOMS: == Shortness of breath: Multifactorial. Patient has history of COPD. Came in with complaints of shortness of breath requiring intubation. Chest x-ray revealing scattered bibasilar atelectasis/infiltrates and small left pleural effusion. CT angiogram showed no evidence of PE. Patient intubated, tolerating CPAP on 50% FiO2. Follow-up chest x-ray this morning showed worsening consolidation at the bases and slight bilateral effusions. PRN doing are available. Comfort medications have been ordered. == Anxiety: Scheduled and PRN medications are available. * Palliative care will continue to follow the patient during hospital course as condition evolves, to assist patient/decision-maker with understanding of their medical conditions, weighing benefits/burdens of treatment options, for clarification of goals of treatment. Additionally will assist with any symptoms of palliative concern. . Attestation To help prompt me to consider important information that might be impacting today's encounter and assessment, information from prior notes written by myself or my colleagues may have been "brought forward" into today's note. My signature on this note, however, is an attestation that I personally performed the exam, history, and/or decision-making noted today, and, unless otherwise indicated, the interactions with patient, family, and staff as well as the review of records all occurred today. I also attest that the listed assessment and stated plan reflect my best clinical judgment today based on the combination of historical information, prior notes, and today's exam/ interactions. When time spent is documented, it refers only to time spent today by the signer, or if indicated, combined time spent today by collaborating physician/nurse practitioner. . Paola Castaneda May 18, 2017 13:47
[2017-05-18] MEDS: LORazepam 2 MG/ML VIAL IV PUSH SCH ×2 (16:00→16:48)
[2017-05-18] MEDS: HYDROmorphone HCL PF 2 MG/ML VIAL IV PUSH SCH ×3 (16:00→16:49)
== END 2017-05-18 20:20 | disposition hospice, inpatient (51) | DRG 207 ==
LOC: NEPC 07:54 → NEDA 11:05 → HIMW 12:20
PROVIDERS: ADMIT Internal Medicine Critical Care Medicine; ATTEND Internal Medicine Critical Care Medicine
PROC: 5A1955Z Respiratory Ventilation, Greater than 96 Consecutive Hours (ICD-10-PCS; principal; 2017-05-06)
PROC: 0BH17EZ Insertion of Endotracheal Airway into Trachea, Via Natural or Artificial Opening (ICD-10-PCS; 2017-05-06)
PROC: 0T9B70Z Drainage of Bladder with Drainage Device, Via Natural or Artificial Opening (ICD-10-PCS; 2017-05-06)
PROC: 0D9670Z Drainage of Stomach with Drainage Device, Via Natural or Artificial Opening (ICD-10-PCS; 2017-05-06)
DX: J15.211 Pneumonia due to Methicillin susceptible Staphylococcus aureus (principal); N17.0 Acute kidney failure with tubular necrosis; G93.41 Metabolic encephalopathy; A04.72 Enterocolitis due to Clostridium difficile, not specified as recurrent; E87.0 Hyperosmolality and hypernatremia; I50.9 Heart failure, unspecified; I11.0 Hypertensive heart disease with heart failure; R18.8 Other ascites; J96.01 Acute respiratory failure with hypoxia; J96.02 Acute respiratory failure with hypercapnia; I69.354 Hemiplegia and hemiparesis following cerebral infarction affecting left non-dominant side; J44.1 Chronic obstructive pulmonary disease with (acute) exacerbation; J44.0 Chronic obstructive pulmonary disease with (acute) lower respiratory infection; J98.11 Atelectasis; Z78.1 Physical restraint status; Z87.442 Personal history of urinary calculi; E78.00 Pure hypercholesterolemia, unspecified; I48.91 Unspecified atrial fibrillation; I25.2 Old myocardial infarction; Z95.5 Presence of coronary angioplasty implant and graft; Z51.5 Encounter for palliative care; G47.33 Obstructive sleep apnea (adult) (pediatric); Z87.891 Personal history of nicotine dependence; M25.511 Pain in right shoulder; M25.512 Pain in left shoulder; E87.5 Hyperkalemia; F41.9 Anxiety disorder, unspecified; Y95 Nosocomial condition; Z66 Do not resuscitate
CPT/HCPCS: 31500; 36600; 51702; 70450; 71045; 71275; 74177; 76937; 80048; 80053; 80202; 81001; 82272; 82550; 82805; 82948; 83605; 83735; 83880; 84100; 84132; 84443; 84484; 85007; 85025; 85027; 85610; 85730; 86403; 87040; 87070; 87147; 87186; 87205; 87449; 87493; 87641; 87804; 93005; 93306; 93970; 94003; 94640; 94664; 95819; 96365; 96367; 96368; 96375; J0282; J0330; J0456; J0610; J0692; J0696; J1120; J1170; J1644; J1815; J1940; J1980; J2020; J2060; J2543; J2930; J3010; J3370; J7030; J7040; J7050; Q9963; Q9967